=== PATIENT | female | born 1950 | race Caucasian/White ===

== ENCOUNTER 2017-02-08 05:45 | Inpatient (IN) ==
--- NOTE | 2017-02-08 06:08 | Emergency Department Note ---
START Narrative - START START: This is soley a START note for a 66-year-old female is brought to the emergency department by EMS for evaluation of left knee pain status post fall. The patient's states that the patient has had 2 falls within the last 24 hours. The patient now complaining of pain in her left knee. Additionally, the patient also complains of urinary symptoms including incontinence. The patient' s daughter states that the patient has been slightly altered along with this complaint. The patient's daughter states that the patient has been "talking to people that have been for quite some time". Further care of this patient will be assumed by FAISAL Oro due to mid-level shift change.
[2017-02-08] MEDS ORDERED: 0.9 % Sodium Chloride 1,000 ML IVC ONE ×3 (06:25→12:32)
[2017-02-08 06:33] LABS: Bilirubin,Urine Negative (Negative); Blood,Urine Large (Negative); Clarity,Urine Cloudy (Clear); Color,Urine Dark Yellow (Yellow); Glucose,Urine (UA) >=1000 mg/dL (Normal); Ketones,Urine Negative (Negative); Leukocyte Esterase,Urine Trace (Negative); Nitrite,Urine Positive (Negative); PH,Urine 5.5 pH Units (5.0-8.0); Protein,Urine 30 mg/dL (Neg-Trace); Specific Gravity,Urine 1.029 (1.010-1.025); Urobilinogen,Urine Normal (Normal)
--- NOTE | 2017-02-08 06:34 | Emergency Department Note ---
Disposition Clinical Impression: Confusion Sepsis Qualifiers: Sepsis type: sepsis due to unspecified organism Qualified Code(s): A41.9 - Sepsis, unspecified organism Diabetes mellitus Qualifiers: Diabetes mellitus type: type 2 Diabetes mellitus complication status: without complication Diabetes mellitus termite helper insulin use: with chcf use Qualified Code(s): E11.9 - Type 2 diabetes mellitus without complications; Z79.4 - terminal operations supervisor (current) use of insulin Diabetes mellitus, insulin dependent (IDDM), uncontrolled Qualifiers: Diabetes mellitus complication status: without complication Qualified Code(s): E10.9 - Type 1 diabetes mellitus without complications Disposition: Admitted As Inpatient Condition: Good Time of Disposition: 13:00 General Adult HPI - General Chief complaint: ED Extremity Injury, Lower Stated complaint: left knee pain Time Seen by Provider: 02/08/17 06:06 Source: patient, EMS Mode of arrival: EMS Limitations: no limitations Nursing Notes Reviewed: Yes Vital Signs Reviewed: Yes - History of Present Illness HPI Narrative: Patient brought to the ED by EMS squad after falling at home, and confusion. Patient lives with her daughter and daughter reports after her fall yesterday she has been, "talking out of her head, picking at objects that weren't there". This apparently a new finding for her. She is a diabetic, and when they checked her blood sugar at 0130 it was found to be 450, and was covered with 15 units of insulin. They have been having difficulty with getting her blood sugars adjusted properly over the last few weeks. She has an appointment with a new Oil Heat Technician but not unitl March. Her primary complaint is pain in her left knee after she fell yesterday. She does have a history of recent back surgery 2 weeks ago, "ablation of nerves in the back " Currently patient is awake, alert to person and place. Her mouth is quite dry. [place] was inserted without difficulty and urine obtained for test. Will start an IV and obtain lab work, chest xray, and left knee xray. Onset (ago): unknown Location: lower extremity (left knee pain) Radiation: extremity Pain Severity: moderate Pain Scale: 7 Quality: aching, dull Consistency: constant, Worsening Improves with: nothing Worsens with: nothing Associated symptoms: Reports: confusion, weakness Treatments Prior to Arrival: none - Related Data Home Medications Medication Instructions Recorded Confirmed Amitriptyline [Elavil] 20 mg PO HS 05/18/15 02/08/17 Aspirin Enteric Coated [Aspirin EC] 81 mg PO DAILY 05/18/15 02/08/17 Clopidogrel [Plavix] 75 mg PO DAILY 05/18/15 02/08/17 Cranberry 500 mg PO DAILY 05/18/15 02/08/17 Gabapentin [Neurontin] 600 mg PO TID 05/18/15 02/08/17 Hydrocodone/Acetaminophen [Delphi 1 tab PO Q6H PRN 05/18/15 02/08/17 10-325 Tablet] Insulin ASPART [NovoLOG] 0 unit SQ TIDWM 05/18/15 02/08/17 Insulin DETEMIR [Levemir] 65 unit SQ HS 05/18/15 02/08/17 Metformin [Glucophage] 1,000 mg PO BIDWM 05/18/15 02/08/17 Multivitamin/Iron/Folic Acid 1 tab PO DAILY 05/18/15 02/08/17 [Centrum Complete Multivit Tab] Potassium Chloride 10 meq PO DAILY 05/18/15 02/08/17 Simvastatin [Zocor] 20 mg PO HS 05/18/15 02/08/17 Bupropion HCl [Wellbutrin Xl] 300 mg PO DAILY 02/08/17 02/08/17 Cyanocobalamin (Vitamin B-12) 100 mcg PO DAILY 02/08/17 02/08/17 [Vitamin B-12] Dicyclomine [Bentyl] 10 mg PO BID 02/08/17 02/08/17 FLUoxetine HCl [Prozac] 40 mg PO DAILY 02/08/17 02/08/17 Meloxicam [Mobic] 15 mg PO DAILY 02/08/17 02/08/17 Oxybutynin [Ditropan] 10 mg PO BID 02/08/17 02/08/17 Ropinirole HCl [Requip] 2 mg PO HS 02/08/17 02/08/17 Allergies Allergy/AdvReac Type Severity Reaction Status Date / Time No Known Allergies Allergy Verified 05/18/15 11:08 All systems ED: reviewed and negative except as stated. Constitutional: Denies: fever, chills, weakness, weight change Eyes: Denies: eye pain, eye discharge, vision change ENT ED: Denies: ear pain, throat pain, dental pain, hearing loss, epistaxis, congestion, dysphagia Cardiovascular: Denies: chest pain, palpitations, dyspnea on exertion, edema, syncope Respiratory: Denies: cough, dyspnea, wheezes, hemoptysis, stridor, sputum production Gastrointestinal: Denies: abdominal pain, nausea, vomiting, diarrhea, constipation, hematemesis, melena, hematochezia Genitourinary: Denies: dysuria, frequency, hematuria, discharge Musculoskeletal: Reports: back pain, other (left knee pain) Integumentary: Denies: rash, abrasion, lesions Neurological: Denies: headache, weakness, numbness, paresthesias, confusion, abnormal gait, vertigo Psychiatric: Denies: anxiety, depression, suicidal thoughts, homicidal thoughts , auditory hallucinations, visual hallucinations Endocrine: Reports: polydipsia, polyuria Hematological/Lymphatic: Denies: easy bleeding, easy bruising Allergic/Immunologic: Denies: facial swelling, urticaria Past Medical History - Past Medical History Attestation: Yes The following information was validated with the patient. Source: patient, nursing notes reviewed Medical history: Reports: CVA, diabetes, GERD, hyperlipidemia Surgical history: Reports: appendectomy, cholecystectomy, hysterectomy, knee replacement, other Psychiatric history: Reports: depression CLEANING MATRON history: Reports: no CLEANING MATRON history - Social History Smoking Status: Former smoker Smokeless Tobacco Status: No Alcohol use: Reports: none Drug use: Reports: none Physical Exam - General Limitations: no limitations General appearance: alert, in no apparent distress - Head Head exam: atraumatic, normocephalic, normal inspection - Eye Eye exam: Present: normal appearance, PERRL, EOMI - ENT ENT exam: normal exam, normal oropharynx, mucous membranes dry, TM's normal bilaterally, normal external ear exam - Neck Neck exam: Present: normal inspection, full ROM, trachea midline - Chest Chest inspection: Present: normal inspection, symmetric chest wall rise. Absent : tenderness, rash, abscess - Respiratory Respiratory exam: Present: normal lung sounds bilaterally. Absent: respiratory distress, wheezes - Cardiovascular Cardiovascular exam: Present: regular rate, normal rhythm, normal heart sounds. Absent: systolic murmur, diastolic murmur, JVD - Abdominal Exam Abdominal exam: Present: soft, Non-Tender, diminished bowel sounds. Absent: tenderness, distention, guarding, rebound, rigidity - Expanded Upper Extremity Exam Shoulder exam: Present: normal inspection, full ROM Arm exam: Present: normal inspection, full ROM Elbow exam: Present: normal inspection, full ROM Forearm/Wrist exam: Present: normal inspection, full ROM Hand exam: Present: normal inspection, full ROM Neuromotor exam: Normal: wrist extension, thumb opposition, thumb IP flexion, fingers 2-5 abduction Neurosensory exam: Normal: radial nerve, ulnar nerve, 2-point discrimination Hand tendon exam: Normal: flexor digitorum profundus (location), flexor digitorum superficialis (location), extensor tendon (location) Vascular exam: Normal: capillary refill, radial pulse - Expanded Lower Extremity Exam Hip/Pelvis exam: Present: normal inspection, full ROM Upper leg exam: Present: normal inspection, full ROM Knee exam: Present: normal inspection, full ROM Lower leg exam: Present: normal inspection, full ROM Ankle exam: Present: normal inspection, full ROM Foot/toe exam: Present: normal inspection, full ROM Neurovascular/Tendon exam: Absent: motor deficit, sensory deficit, tendon deficit Gait: not tested/not observed - Back Exam Back exam: Present: normal inspection, full ROM, tenderness (lower back ). Absent: muscle spasm, rashes - Neurological Exam Neurological exam: Present: alert, CN II-XII intact. Absent: motor sensory deficit - Psychiatric Psychiatric exam: Present: normal affect, normal mood - Skin Skin exam: Present: warm, dry, intact, normal color Course - Reevaluation(s) Reevaluation #1: Advised patient and family of results to this point. Time: 08:30 - Consultations Consultation #1: Hospitalist advised of patient's admission and diagnosis Urosepsis confusion Diabetes He accepted her for admission. Time: 08:58 Vital Signs Temperature 98 F 02/08/17 05:51 Pulse Rate 106 02/08/17 05:51 Respiratory Rate 18 02/08/17 05:51 Blood Pressure 114/92 02/08/17 05:51 O2 Sat by Pulse Oximetry 95 02/08/17 05:51 Temperature 99.8 F H 02/08/17 10:48 Pulse Rate 100 02/08/17 10:48 Respiratory Rate 18 02/08/17 10:48 Blood Pressure 153/78 02/08/17 10:48 O2 Sat by Pulse Oximetry 94 02/08/17 10:48 Oxygen Delivery Oxygen Delivery Room Air Medical Decision Making - MDM Narrative Medical decision making narrative: Urosepsis? vs dementia for confusion + UTI +leukocytosis no fever no new injury to left knee after fall Plan to admit to the hospital for + sepsis criteria, elevated WBC and elevated tachycardia. - Lab Data Lab results reviewed: Yes I reviewed the patient's lab results. Result diagrams: 02/08/17 06:35 02/08/17 06:35 Lab Results 02/08/17 02/08/17 02/08/17 Range/Units 06:26 06:35 06:35 WBC 18.5 H (4.3-11.1) K/mcL RBC 4.18 (3.82-4.97) M/mcL Hgb 12.6 (11.5-15.4) g/dL Hct 38.5 (35.3-44.9) % MCV 92.1 (83.0-100.0) fL MCH 30.1 (28.0-33.3) pg MCHC 32.7 (31.6-35.5) g/dL RDW 13.7 (11.5-14.5) % Plt Count 313 (140-400) K/mcL MPV 9.4 (9.4-12.4) fL Immature Gran % 0.6 (0-4) % Seg Neutrophils % 81.8 % Lymphocytes % 10.4 % Monocytes % 7.0 % Eosinophils % 0.0 % Basophils % 0.2 % Neutrophils # 15.2 H (1.6-8.9) K/mcL Lymphocytes # 1.9 (0.6-4.6) K/mcL Monocytes # 1.3 (0.0-1.3) K/mcL Eosinophils # 0.0 (0.0-0.6) K/mcL Basophils # 0.0 (0.0-0.2) K/mcL PT (9.4-12.1) Seconds INR APTT (26.0-36.0) Seconds Sodium 135 L (136-145) mEq/L Potassium 4.4 (3.5-4.5) mEq/L Chloride 100 (98-109) mEq/L Carbon Dioxide 25 (19-29) mEq/L BUN 13 (7-20) mg/dL Creatinine 0.95 (0.57-1.11) mg/dL Est GFR ( Amer) > 60 (> 60) Est GFR (Non-Af Amer) 59 L (> 60) BUN/Creatinine Ratio 14 (6-26) Glucose 95 (70-99) mg/dL Calculated Osmolality 280 (280-300) Lactic Acid (0.5-2.2) mmol/L Calcium 9.6 (8.6-10.8) mg/dL Phosphorus (2.3-4.7) mg/dL Magnesium (1.6-2.6) mg/dL Total Bilirubin (0.2-1.2) mg/dL Direct Bilirubin (0.0-0.5) mg/dL Indirect Bilirubin (0.0-1.2) mg/dL AST (5-34) Units/L ALT (0-55) Units/L Alkaline Phosphatase (38-126) Units/L Creatine Kinase (29-168) Units/L Troponin I (0-0.03) ng/mL Serum Total Protein (6.0-8.3) g/dL Albumin (3.5-5.0) g/dL Globulin (2.4-3.5) g/dL Albumin/Globulin Ratio (1.1-2.2) Urine Color Dark Yellow (Yellow) Urine Clarity Cloudy A (Clear) Urine pH 5.5 (5.0-8.0) pH Units Ur Specific [place] 1.029 H (1.010-1.025) Urine Protein 30 H (Neg-Trace) mg/dL Urine Glucose (UA) >=1000 H (Normal) mg/dL Urine Ketones Negative (Negative) mg/dL Urine Blood Large H (Negative) Urine Nitrite Positive A (Negative) Urine Bilirubin Negative (Negative) Urine Urobilinogen Normal (Normal) mg/dL Ur Leukocyte Esterase Trace H (Negative) Urine Microscopic RBC 5-15 H (0-3) per hpf Urine Microscopic WBC 15-30 H (0-3) per hpf Ur Squamous Epith Cells None Seen (None-Few) per lpf Urine Bacteria Many H (None-Few) per hpf Hyaline Casts None Seen (None-Few) per lpf Ur Culture Indicated? YES A (NO) 02/08/17 02/08/17 02/08/17 Range/Units 08:44 08:44 08:44 WBC (4.3-11.1) K/mcL RBC (3.82-4.97) M/mcL Hgb (11.5-15.4) g/dL Hct (35.3-44.9) % MCV (83.0-100.0) fL MCH (28.0-33.3) pg MCHC (31.6-35.5) g/dL RDW (11.5-14.5) % Plt Count (140-400) K/mcL MPV (9.4-12.4) fL Immature Gran % (0-4) % Seg Neutrophils % % Lymphocytes % % Monocytes % % Eosinophils % % Basophils % % Neutrophils # (1.6-8.9) K/mcL Lymphocytes # (0.6-4.6) K/mcL Monocytes # (0.0-1.3) K/mcL Eosinophils # (0.0-0.6) K/mcL Basophils # (0.0-0.2) K/mcL PT 14.5 H (9.4-12.1) Seconds INR 1.3 APTT 31.0 (26.0-36.0) Seconds Sodium (136-145) mEq/L Potassium (3.5-4.5) mEq/L Chloride (98-109) mEq/L Carbon Dioxide (19-29) mEq/L BUN (7-20) mg/dL Creatinine (0.57-1.11) mg/dL Est GFR ( Amer) (> 60) Est GFR (Non-Af Amer) (> 60) BUN/Creatinine Ratio (6-26) Glucose (70-99) mg/dL Calculated Osmolality (280-300) Lactic Acid 1.0 (0.5-2.2) mmol/L Calcium (8.6-10.8) mg/dL Phosphorus 2.9 (2.3-4.7) mg/dL Magnesium 1.0 L (1.6-2.6) mg/dL Total Bilirubin 0.5 (0.2-1.2) mg/dL Direct Bilirubin 0.2 (0.0-0.5) mg/dL Indirect Bilirubin 0.3 (0.0-1.2) mg/dL AST 9 (5-34) Units/L ALT 12 (0-55) Units/L Alkaline Phosphatase 57 (38-126) Units/L Creatine Kinase 61 (29-168) Units/L Troponin I (0-0.03) ng/mL Serum Total Protein 6.2 (6.0-8.3) g/dL Albumin 2.5 L (3.5-5.0) g/dL Globulin 3.7 H (2.4-3.5) g/dL Albumin/Globulin Ratio 0.7 L (1.1-2.2) Urine Color (Yellow) Urine Clarity (Clear) Urine pH (5.0-8.0) pH Units Ur Specific [place] (1.010-1.025) Urine Protein (Neg-Trace) mg/dL Urine Glucose (UA) (Normal) mg/dL Urine Ketones (Negative) mg/dL Urine Blood (Negative) Urine Nitrite (Negative) Urine Bilirubin (Negative) Urine Urobilinogen (Normal) mg/dL Ur Leukocyte Esterase (Negative) Urine Microscopic RBC (0-3) per hpf Urine Microscopic WBC (0-3) per hpf Ur Squamous Epith Cells (None-Few) per lpf Urine Bacteria (None-Few) per hpf Hyaline Casts (None-Few) per lpf Ur Culture Indicated? (NO) 02/08/17 Range/Units 08:44 WBC (4.3-11.1) K/mcL RBC (3.82-4.97) M/mcL Hgb (11.5-15.4) g/dL Hct (35.3-44.9) % MCV (83.0-100.0) fL MCH (28.0-33.3) pg MCHC (31.6-35.5) g/dL RDW (11.5-14.5) % Plt Count (140-400) K/mcL MPV (9.4-12.4) fL Immature Gran % (0-4) % Seg Neutrophils % % Lymphocytes % % Monocytes % % Eosinophils % % Basophils % % Neutrophils # (1.6-8.9) K/mcL Lymphocytes # (0.6-4.6) K/mcL Monocytes # (0.0-1.3) K/mcL Eosinophils # (0.0-0.6) K/mcL Basophils # (0.0-0.2) K/mcL PT (9.4-12.1) Seconds INR APTT (26.0-36.0) Seconds Sodium (136-145) mEq/L Potassium (3.5-4.5) mEq/L Chloride (98-109) mEq/L Carbon Dioxide (19-29) mEq/L BUN (7-20) mg/dL Creatinine (0.57-1.11) mg/dL Est GFR ( Amer) (> 60) Est GFR (Non-Af Amer) (> 60) BUN/Creatinine Ratio (6-26) Glucose (70-99) mg/dL Calculated Osmolality (280-300) Lactic Acid (0.5-2.2) mmol/L Calcium (8.6-10.8) mg/dL Phosphorus (2.3-4.7) mg/dL Magnesium (1.6-2.6) mg/dL Total Bilirubin (0.2-1.2) mg/dL Direct Bilirubin (0.0-0.5) mg/dL Indirect Bilirubin (0.0-1.2) mg/dL AST (5-34) Units/L ALT (0-55) Units/L Alkaline Phosphatase (38-126) Units/L Creatine Kinase (29-168) Units/L Troponin I 0.00 (0-0.03) ng/mL Serum Total Protein (6.0-8.3) g/dL Albumin (3.5-5.0) g/dL Globulin (2.4-3.5) g/dL Albumin/Globulin Ratio (1.1-2.2) Urine Color (Yellow) Urine Clarity (Clear) Urine pH (5.0-8.0) pH Units Ur Specific [place] (1.010-1.025) Urine Protein (Neg-Trace) mg/dL Urine Glucose (UA) (Normal) mg/dL Urine Ketones (Negative) mg/dL Urine Blood (Negative) Urine Nitrite (Negative) Urine Bilirubin (Negative) Urine Urobilinogen (Normal) mg/dL Ur Leukocyte Esterase (Negative) Urine Microscopic RBC (0-3) per hpf Urine Microscopic WBC (0-3) per hpf Ur Squamous Epith Cells (None-Few) per lpf Urine Bacteria (None-Few) per hpf Hyaline Casts (None-Few) per lpf Ur Culture Indicated? (NO) - Radiology Data Radiology results reviewed: Yes I reviewed the patient's radiology results. Attestation Statement - Attestation Attestation: I examined this patient and my medical decision-making was reviewed with the BARIATRIC SURGEON/PA/Advanced Practice Nurse/Resident Physician. I agree with the documented findings, disposition and treatment plan as described except to the extent set forth below. Sent to ED with altered mental status falls. Family states she has been a little more confused than normal. No fevers. No cough congestion. No abdominal pain or vomiting. She fell twice last night. Denies hitting her head. On examination she is awake alert appropriate and oriented. Abdomen soft and lungs clear. Plan. Patient was slightly tachycardic with a white count. She will be sepsis criteria, however the patient is not felt to be septic. She has a urinary tract infection. We will treat this as Rocephin. She has had 2 L of normal saline which are sufficient as she is not hypotensive. The patient is 5 foot 2. Hydration will be sufficient based on her ideal body weight. Patient will be admitted to medicine. 30 minutes of critical care exclusive of separately billable procedures.
[2017-02-08 06:36] LABS: Bacteria,Urine Many per hpf (None-Few); Hyaline Casts,Urine None Seen per lpf (None-Few); Squamous Epithelial Cell,Urine None Seen per lpf (None-Few); WBC,Urine 15-30 per hpf (0-3)
[2017-02-08 06:42] LABS: Basophils % 0.2 %; Hematocrit 38.5 % (35.3-44.9); Hemoglobin 12.6 g/dL (11.5-15.4); Immature Granulocytes % 0.6 % (0-4); Lymphocytes # 1.9 K/mcL (0.6-4.6); Lymphocytes % 10.4 %; Mean Corpuscular HGB Conc 32.7 g/dL (31.6-35.5); Mean Corpuscular Hemoglobin 30.1 pg (28.0-33.3); Mean Corpuscular Volume 92.1 fL (83.0-100.0); Mean Platelet Volume 9.4 fL (9.4-12.4); Monocytes # 1.3 K/mcL (0.0-1.3); Neutrophils # 15.2 K/mcL (1.6-8.9); Platelet Count 313 K/mcL (140-400); Red Blood Count 4.18 M/mcL (3.82-4.97); Red Cell Distribution Width 13.7 % (11.5-14.5); Segmented Neutrophils % 81.8 %
[2017-02-08 06:53] LABS: BUN/Creatinine Ratio 14 (6-26); Blood Urea Nitrogen 13 mg/dL (7-20); Calcium 9.6 mg/dL (8.6-10.8); Carbon Dioxide 25 mEq/L (19-29); Chloride 100 mEq/L (98-109); Glucose 95 mg/dL (70-99); Osmolality,Calculated 280 (280-300); Potassium 4.4 mEq/L (3.5-4.5); Sodium 135 mEq/L (136-145); eGFR For African Americans > 60 (> 60); eGFR For Non-African Americans 59 (> 60)
[2017-02-08 09:04] LABS: INR 1.3; Prothrombin Time 14.5 Seconds (9.4-12.1)
[2017-02-08 09:06] LABS: Albumin 2.5 g/dL (3.5-5.0); Albumin/Globulin Ratio 0.7 (1.1-2.2); Bilirubin,Direct 0.2 mg/dL (0.0-0.5); Bilirubin,Indirect 0.3 mg/dL (0.0-1.2); Bilirubin,Total 0.5 mg/dL (0.2-1.2); Globulin 3.7 g/dL (2.4-3.5); Phosphorous 2.9 mg/dL (2.3-4.7); Total Protein 6.2 g/dL (6.0-8.3)
[2017-02-08] MEDS ORDERED: Naloxone 0.4 MG/ML INJ IVP PRN (11:10)
[2017-02-08] MEDS ORDERED: Albuterol 2.5 MG/3 ML NEBULIZER IH PRN (11:18)
--- NOTE | 2017-02-08 11:21 | Internal Med History&Physical ---
<Lalita Bernstein - Last Filed: 02/08/17 12:00> Date of Encounter: 02/08/17 Time of Encounter: 11:21 Assessment and Plan (1) Sepsis Current visit: Yes Status: Acute 1 patient has been experiencing increasing confusion experiencing chills presentation she was tachycardic white count was 18 urinalysis revealed UTI. Blood/urine cultures were obtained patient was given IV fluids we will continue with IV fluids 2 continue with Rocephin-adjusted sensitivity 3 monitor intake and output 4 monitor CBC Qualifiers: Sepsis type: sepsis due to unspecified organism Qualified Code(s): A41.9 - Sepsis, unspecified organism (2) Urinary tract infection Current visit: Yes Status: Acute 1 patient's urinalysis revealed large mononitrates blood bacteria. Urine culture was obtained 2 continue IV Rocephin and adjust a sensitivity 3 we will check CPK large amount of RBCs and urinalysis patient did have some falls Qualifiers: Urinary tract infection type: acute cystitis Hematuria presence: with hematuria Qualified Code(s): N30.01 - Acute cystitis with hematuria (3) Diabetes mellitus Current visit: Yes Status: Chronic 1 Accu-Cheks before meals at bedtime with sliding scale insulin as well as basal bolus to maintain postprandial less than 180 2 diabetic diet Qualifiers: Diabetes mellitus type: type 2 Diabetes mellitus complication status: without complication Diabetes mellitus technician terminal and repeater insulin use: with chcf use Qualified Code(s): E11.9 - Type 2 diabetes mellitus without complications ; Z79.4 - [facility] (current) use of insulin (4) COPD (chronic obstructive pulmonary disease) Current visit: Yes Status: Chronic 1 presently stable we will continue with bronchodilators as needed 2 oxygen as needed titrated maintain SPO2 greater 92% Qualifiers: COPD type: unspecified COPD Qualified Code(s): J44.9 - Chronic obstructive pulmonary disease, unspecified (5) Hypertension Current visit: Yes Status: Chronic 1 presently controlled we will continue with home medications 2 low sodium diet Qualifiers: Hypertension type: essential hypertension Qualified Code(s): I10 - Essential (primary) hypertension (6) History of CVA (cerebrovascular accident) Current visit: Yes Status: Chronic 1 history of CVA we will continue with statin aspirin Plavix (7) Hypomagnesemia Current visit: Yes Status: Acute 1 magnesium 1 we will replace and recheck 2 cardiac monitoring (8) DVT prophylaxis Current visit: Yes Status: Acute 1 [facility] Internal Medicine - H&P: HPI Admitted From: Emergency Dept Plans for Post Hospital Care: Home History of present illness: Ms. Hernandez is a 66 year old female past medical history of CVA and diabetes GERD hyperlipidemia which are arthritis hypertension COPD. information obtained from family as well as patient. According to family patient's had been expressing increasing blood sugars since . Thursday she began to have episodes of nausea and vomiting with approximately 11 PM Thursday night patient's bed was not unable to get up. Family had a difficult time assisting patient back to bed, as night progressed the family noticed patient was growing increasingly confused and hallucinating picking at things in the air, experiencing chills and around 3 AM she fell out of bed. She did not strike her head there was no loss of consciousness. She did complain of left knee pain She has been experiencing lower abdominal cramping and some diarrhea which she states is chronic nausea vomiting chills. She denies any urinary symptoms chest pain or shortness of breath. She was brought to the ER for further evaluation. According to records lab work indicated leukocytosis that WBC 18.5 lactic acid was 1 mag was 1 troponin was 0 urinalysis did reveal large amount of blood large nitrates is positive leukoesterase and bacteria. Chest x-ray was clear head CT was negative for any acute intracranial abnormalities knee x- ray revealed some osteoarthritis. Blood cultures were obtained patient was given IV fluids and Rocephin. She was admitted for further workup evaluation. Presently patient does not appear to be in any respiratory distress she denies any shortness of breath or chest pain. She is alert and oriented 3 and follows simple commands however she does make inappropriate statements at times is picking at her clothes as well as blankets. Family states this is not her baseline that she is independent and performs her own ADLs. Lung sounds are clear bilaterally heart sounds S1-S2 with no rubs clicks gallops or murmurs noted abdomen soft and nontender with a catheter in place draining clear yellow urine. She is hemodynamically stable at this time I reviewed this case with who agrees with plan. Past Med Surg Social Fam HX - Past Medical History Medical history: CVA, diabetes, GERD, hyperlipidemia Psychiatric history: depression - Past Surgical History Surgical History: appendectomy, cholecystectomy, hysterectomy, knee replacement , other - Social History Smoking Status: Former smoker Smokeless Tobacco Status: No Alcohol use: none Drug use: none - Family History Mother Living Status: Hx Family Cardiac Disorders: Yes Hx Family Endocrine Disorder: Yes (diabetes) Father Living Status: Hx Family Cardiac Disorders: Yes Hx Family Endocrine Disorder: Yes (diabetes) Internal Medicine - H&P: Meds Amitriptyline [Elavil] 20 mg PO HS 05/18/15 [History] Aspirin Enteric Coated [Aspirin EC] 81 mg PO DAILY 05/18/15 [History] Clopidogrel [Plavix] 75 mg PO DAILY 05/18/15 [History] Cranberry 500 mg PO DAILY 05/18/15 [History] Gabapentin [Neurontin] 600 mg PO TID 05/18/15 [History] Hydrocodone/Acetaminophen [[place] 10-325 Tablet] 1 tab PO Q6H PRN 05/18/15 [ History] Insulin ASPART [NovoLOG] 0 unit SQ TIDWM 05/18/15 [History] Insulin DETEMIR [Levemir] 65 unit SQ HS 05/18/15 [History] Metformin [Glucophage] 1,000 mg PO BIDWM 05/18/15 [History] Multivitamin/Iron/Folic Acid [Centrum Complete Multivit Tab] 1 tab PO DAILY [History] Potassium Chloride 10 meq PO DAILY 05/18/15 [History] Simvastatin [Zocor] 20 mg PO HS 05/18/15 [History] Bupropion HCl [Wellbutrin Xl] 300 mg PO DAILY 02/08/17 [History] Cyanocobalamin (Vitamin B-12) [Vitamin B-12] 100 mcg PO DAILY 02/08/17 [History] Dicyclomine [Bentyl] 10 mg PO BID 02/08/17 [History] FLUoxetine HCl [Prozac] 40 mg PO DAILY 02/08/17 [History] Meloxicam [Mobic] 15 mg PO DAILY 02/08/17 [History] Oxybutynin [Ditropan] 10 mg PO BID 02/08/17 [History] Ropinirole HCl [Requip] 2 mg PO HS 02/08/17 [History] Allergies No Known Allergies Allergy (Verified 05/18/15 11:08) All Systems PM: A 10-system review of systems was performed and is negative for pertinent findings except as documented above in the HPI. - Constitutional Constitutional: chills, weight loss - EENT Eyes: no change in vision, no discharge, no pain, no photophobia - Cardiovascular Cardiovascular ROS IM: no chest pain, no diaphoresis, no dyspnea, no lightheadedness, no palpitations, no syncope - Respiratory Respiratory: no cough, no dyspnea, no wheezing, no excessive phlegm production - Gastrointestinal Gastrointestinal: cramping, diarrhea, nausea, vomiting, no abdominal pain, no hematemesis, no hematochezia, no melena - Genitourinary Genitourinary: no change in urinary stream, no dysuria, no flank pain, no hematuria - Musculoskeletal Musculoskeletal ROS IM: arthralgias, no numbness, no tingling - Integumentary Integumentary IM: no rash, no unusual bruising - Neurological Neurological ROS: behavioral changes, confusion, frequent falls - Psychiatric Psychiatric: hallucinations - Hematologic/Lymphatic Hematologic/Lymphatic: no easy bruising - Constitutional Vitals: Temp Pulse Resp BP Pulse Ox 99.8 F H 100 18 153/78 94 02/08/17 10:48 02/08/17 10:48 02/08/17 10:48 02/08/17 10:48 02/08/17 10:48 General appearance: Present: A&O X 3, answers questions appropriately - Head Head exam: Present: atraumatic, normocephalic - Eye Eye exam: Present: PERRL, conjuntiva pink, sclera anicteric Pupils: Present: PERRL - Neck Neck exam general surgery: Present: supple, trachea midline. Absent: lymphadenopathy - Respiratory Respiratory exam: Present: CTAB. Absent: accessory muscle use, rales, rhonchi, wheezes - Cardiovascular Cardiovascular exam: Present: RRR, +S1, +S2. Absent: diastolic murmur, gallop, rubs, systolic murmur - GI/Abdominal GI/Abdominal exam: Present: normal bowel sounds, soft, no peritoneal signs. Absent: distended, tenderness - Extremities Exam Extremities exam: Present: warm, radial pulses palpable and symetrical. Absent : calf tenderness, cyanotic, pedal edema - Neurological Exam Neurological exam: Present: CN II-XII intact, oriented X3, no focal deficits. Absent: pronater drift, facial droop, speech deficit - Skin Skin exam: Present: dry, intact Internal Med - H&P Results - Labs CBC & Chem 7: 02/08/17 06:35 02/08/17 06:35 - EKG Data EKG shows normal: sinus rhythm - EKG Data Prior EKG available for review: yes When compared to previous EKG: there is no significant change - Diagnostic Studies Other Images Additional comments: Chest X-Ray 02/08/17 06:26 IMPRESSION: No acute cardiopulmonary process. D/ / Matty Vital MD / Matty Vital MD Interpreting Provider: Matty Vital MD Knee X-Ray 02/08/17 06:27 IMPRESSION: No acute osseous abnormality of the left knee. Severe tricompartmental osteoarthritis, most pronounced in the medial compartment. D/ / Matty Vital MD / Matty Vital MD Interpreting Provider: Matty Vital MD Head CT 02/08/17 07:43 IMPRESSION: No acute intracranial abnormality. Mild chronic small vessel ischemic changes. D/ / 02/08/2017 08:18:36 Deloris Burleson MD / olga Interpreting Provider: Deloris Burleson MD <Chuy Diaz - Last Filed: 02/08/17 12:35> Date of Encounter: 02/08/17 Internal Medicine - H&P: HPI History of present illness: Ms. Hernandez is a 66 year old female All Systems PM: A 10-system review of systems was performed and is negative for pertinent findings except as documented above in the HPI. - Constitutional Vitals: Temp Pulse Resp BP Pulse Ox 99.8 F H 100 18 153/78 94 02/08/17 10:48 02/08/17 10:48 02/08/17 10:48 02/08/17 10:48 02/08/17 10:48 Internal Med - H&P Results - Labs CBC & Chem 7: 02/08/17 06:35 02/08/17 06:35 - Attending Attestation I examined this patient and my medical decision-making was reviewed with Ms. Bernsteni. I agree with the documented findings, disposition and treatment plan as described except to the extent set forth below. Briefly, 66-year-old female with a history of diabetes mellitus with uncontrolled blood sugars presented to the emergency department due to confusion , hallucinations and picking up objects associated with nausea and vomiting. In the emergency room, she has been found to have urinary tract infection and sepsis due to the same. She is being admitted for the same. On exam, patient has dry mucous membranes. Tachycardia appreciated. Ellington catheter in place. Laboratory data reviewed. EKG personally reviewed-sinus tach. T-wave inversions in aVL which have not changed from her prior EKG. 1. Sepsis due to urinary tract infection-admit to inpatient status. High risk due to risk of septic shock and the need for intravenous fluids and intravenous antibiotic therapy. Expected length of stay is at least 2 midnights. Expected discharge disposition is to home. Lactic acid level is normal. 2. Diabetes mellitus type 2 on home insulin therapy that is uncontrolled- patient's insulin will be adjusted to achieve adequate glycemic control. Sliding scale insulin. Diabetic diet. 3. COPD 4. History of CVA 5. Essential hypertension 6. Electrolyte abnormalities MARCELLA Branch
[2017-02-08] MEDS ORDERED: D5% in Water 1,000 ML IVC PRN (11:22)
[2017-02-08] MEDS ORDERED: Dextrose Gel 15 GM PO PRN ×2 (11:22)
[2017-02-08] MEDS ORDERED: *HR* Dextrose 50 % in Water (Syg) 50 ML SYRINGE IVP PRN (11:22)
[2017-02-08] MEDS ORDERED: Magnesium Sulfate 2 GM in D5% in Water 100 ML IVPB ONE (11:47)
[2017-02-08] MEDS: 0.9 % Sodium Chloride 1,000 ML IVC SCH (12:24)
[2017-02-08] MEDS: Nicotine 14 MG PATCH.TD24 TD SCH (12:25)
[2017-02-08] MEDS: Insulin LISPRO 300 UNITS/3 ML VIAL SQ SCH ×3 (12:50→21:24)
[2017-02-08] MEDS: Acetaminophen 325 MG TABLET PO PRN ×2 (13:03→18:46)
[2017-02-08] MEDS: Gabapentin 300 MG CAPSULE PO SCH ×2 (15:57→21:04)
[2017-02-08] MEDS ORDERED: INSULIN DETEMIR 65 UNIT SQ SCH (21:00)
[2017-02-08] MEDS: rOPINIRole 1 MG TABLET PO SCH (21:05)
[2017-02-08] MEDS: Insulin DETEMIR 100 UNIT/ML X5UNITS SQ SCH (21:25)
[2017-02-09] MEDS: 0.9 % Sodium Chloride 1,000 ML IVC SCH (02:31)
[2017-02-09 06:06] LABS: Basophils % 0.3 %; Hematocrit 35.2 % (35.3-44.9); Hemoglobin 11.3 g/dL (11.5-15.4); Immature Granulocytes % 0.6 % (0-4); Lymphocytes % 15.5 %; Mean Corpuscular HGB Conc 32.1 g/dL (31.6-35.5); Mean Corpuscular Hemoglobin 29.9 pg (28.0-33.3); Mean Corpuscular Volume 93.1 fL (83.0-100.0); Mean Platelet Volume 9.7 fL (9.4-12.4); Monocytes # 0.8 K/mcL (0.0-1.3); Monocytes % 6.5 %; Platelet Count 310 K/mcL (140-400); Red Blood Count 3.78 M/mcL (3.82-4.97); Red Cell Distribution Width 13.8 % (11.5-14.5); Segmented Neutrophils % 77.1 %
[2017-02-09 06:27] LABS: BUN/Creatinine Ratio 11 (6-26); Blood Urea Nitrogen 8 mg/dL (7-20); Calcium 8.7 mg/dL (8.6-10.8); Carbon Dioxide 23 mEq/L (19-29); Chloride 104 mEq/L (98-109); Glucose 140 mg/dL (70-99); Osmolality,Calculated 279 (280-300); Potassium 4.1 mEq/L (3.5-4.5); Sodium 134 mEq/L (136-145); eGFR For African Americans > 60 (> 60); eGFR For Non-African Americans > 60 (> 60)
[2017-02-09] MEDS: *HR* Enoxaparin 40 MG/0.4 ML SYRINGE SQ SCH (06:39)
[2017-02-09] MEDS: Insulin LISPRO 300 UNITS/3 ML VIAL SQ SCH ×4 (08:35→21:20)
[2017-02-09] MEDS: BuPROPion XL (24 HR) 150 MG TABLET PO SCH (09:56)
[2017-02-09] MEDS: FLUoxetine 20 MG CAPSULE PO SCH (09:56)
[2017-02-09] MEDS: Gabapentin 300 MG CAPSULE PO SCH ×3 (09:56→21:16)
[2017-02-09] MEDS: Aspirin Enteric Coated 81 MG Tablet PO SCH (09:56)
[2017-02-09] MEDS: Nicotine 14 MG PATCH.TD24 TD SCH (09:59)
[2017-02-09] MEDS: *HR* HYDROcodone/Acet 5/325 mg TABLET PO PRN (12:58)
--- NOTE | 2017-02-09 18:31 | Internal Med Progress Note ---
Date of Encounter: 02/09/17 Time of Encounter: 15:00 - Assessment and plan (1) Sepsis Current Visit: Yes Status: Acute Assessment and plan: Likely secondary to gram-negative rods with urinary tract infection as source. Lactic acid is improving. The patient has been afebrile. So far blood culture is negative. Continue with broad-spectrum and IV antibiotics. I will increase ceftriaxone dose to every 12 hours for severe infection. Follow-up culture and sensitivities. Qualifiers: Sepsis type: sepsis due to unspecified organism Qualified Code(s): A41.9 - Sepsis, unspecified organism (2) Urinary tract infection Current Visit: Yes Status: Acute Assessment and plan: Continue with ceftriaxone. Follow-up sensitivities and transitioned to oral antibiotics. Qualifiers: Urinary tract infection type: acute cystitis Hematuria presence: with hematuria Qualified Code(s): N30.01 - Acute cystitis with hematuria (3) Diabetes mellitus Current Visit: Yes Status: Chronic Assessment and plan: Insulin Levemir and sliding scale. Diabetic diet. Qualifiers: Diabetes mellitus type: type 2 Diabetes mellitus complication status: without complication Diabetes mellitus termite exterminator insulin use: with termite exterminator use Qualified Code(s): E11.9 - Type 2 diabetes mellitus without complications ; Z79.4 - intermediate card tender (current) use of insulin (4) COPD (chronic obstructive pulmonary disease) Current Visit: Yes Status: Chronic Assessment and plan: No evidence of exacerbation. We will use inhaled bronchodilators as needed. Qualifiers: COPD type: unspecified COPD Qualified Code(s): J44.9 - Chronic obstructive pulmonary disease, unspecified (5) Hypertension Current Visit: Yes Status: Chronic Assessment and plan: Resume home medications. Qualifiers: Hypertension type: essential hypertension Qualified Code(s): I10 - Essential (primary) hypertension (6) DVT prophylaxis Current Visit: Yes Status: Acute (7) Hypomagnesemia Current Visit: Yes Status: Acute Assessment and plan: We will check an replete magnesium the morning. - Subjective Interval history: 02/09/2017: The patient presented yesterday with generalized weakness and profound confusion described as visual hallucination and disorientation, as per her daughter's reports. She was fnd to have UTI and sepsis. Her mental status has improved significantly currently she is back to baseline which is fully alert and conversant. Denies fevers and chills denies dysuria however the daughter does endorse that the patient has been having more urinary incontinence over the last week. - Constitutional Vitals: Temp Pulse Resp BP Pulse Ox 98 F 81 16 110/61 95 02/09/17 15:55 02/09/17 15:55 02/09/17 15:55 02/09/17 15:55 02/09/17 15:55 General appearance: Present: A&O X 3, answers questions appropriately - Cardiovascular Cardiovascular exam: Present: RRR, +S1, +S2. Absent: diastolic murmur, gallop, rubs, systolic murmur - GI/Abdominal GI/Abdominal exam: Present: normal bowel sounds, soft, no peritoneal signs. Absent: distended, tenderness - Extremities Exam Extremities exam: Present: warm, radial pulses palpable and symetrical. Absent : calf tenderness, cyanotic, pedal edema - Skin Skin exam: Present: dry, intact Internal Medicine: Result - Labs CBC & Chem 7: 02/09/17 05:10 02/09/17 05:10 Labs: Short CBC 02/09/17 Range/Units 05:10 WBC 13.0 H (4.3-11.1) K/mcL Hgb 11.3 L (11.5-15.4) g/dL Hct 35.2 L (35.3-44.9) % Plt Count 310 (140-400) K/mcL Neutrophils # 10.0 H (1.6-8.9) K/mcL BMP 02/09/17 05:10 Sodium 134 L Potassium 4.1 Chloride 104 Carbon Dioxide 23 BUN 8 Creatinine 0.72 Glucose 140 H Calcium 8.7 - ABG Interpretation ABG results: PT/INR, D-dimer PT 14.5 Seconds (9.4-12.1) H 02/08/17 08:44 Consult Discharge Plan - Plan Referrals: Judy Montoya [Primary Care Provider] - (office will call the patient for an appointment...)
[2017-02-09] MEDS: rOPINIRole 1 MG TABLET PO SCH (21:16)
[2017-02-09] MEDS: Insulin DETEMIR 100 UNIT/ML X5UNITS SQ SCH (21:21)
[2017-02-10 00:35] LABS: Acinetobacter baumannii by PCR Not Detected (Not Detect); Candida albicans by PCR Not Detected (Not Detect); Candida glabrata by PCR Not Detected (Not Detect); Candida krusei by PCR Not Detected (Not Detect); Candida parapsilosis by PCR Not Detected (Not Detect); Candida tropicalis by PCR Not Detected (Not Detect); Enterococcus by PCR Not Detected (Not Detect); Escherichia coli by PCR Not Detected (Not Detect); Klebsiella oxytoca by PCR Not Detected (Not Detect); Klebsiella pneumoniae by PCR ***DETECTED*** (Not Detect); Pseudomonas aeruginosa by PCR Not Detected (Not Detect); Serratia marcescens by PCR Not Detected (Not Detect); Staphylococcus aureus by PCR Not Detected (Not Detect); Streptococcus agalactiae(B)PCR Not Detected (Not Detect); Streptococcus by PCR Not Detected (Not Detect); Streptococcus pneumoniae PCR Not Detected (Not Detect); Streptococcus pyogenes (A) PCR Not Detected (Not Detect); blaKPC Carbapenem-Resist Gene Not Detected (Not Detect); mecA Methicillin-Resist Gene Not Detected (Not Detect); vanA/B Vancomycin-Resist Genes Not Detected (Not Detect)
[2017-02-10 04:33] LABS: Basophils % 0.3 %; Eosinophils # 0.1 K/mcL (0.0-0.6); Eosinophils % 0.6 %; Hematocrit 34.7 % (35.3-44.9); Hemoglobin 11.1 g/dL (11.5-15.4); Immature Granulocytes % 0.6 % (0-4); Lymphocytes # 2.3 K/mcL (0.6-4.6); Lymphocytes % 22.8 %; Mean Corpuscular Hemoglobin 29.7 pg (28.0-33.3); Mean Corpuscular Volume 92.8 fL (83.0-100.0); Mean Platelet Volume 9.5 fL (9.4-12.4); Monocytes # 0.9 K/mcL (0.0-1.3); Monocytes % 8.8 %; Neutrophils # 6.9 K/mcL (1.6-8.9); Platelet Count 344 K/mcL (140-400); Red Blood Count 3.74 M/mcL (3.82-4.97); Red Cell Distribution Width 13.7 % (11.5-14.5); Segmented Neutrophils % 66.9 %
[2017-02-10 04:49] LABS: BUN/Creatinine Ratio 11 (6-26); Blood Urea Nitrogen 8 mg/dL (7-20); Calcium 8.8 mg/dL (8.6-10.8); Carbon Dioxide 26 mEq/L (19-29); Chloride 105 mEq/L (98-109); Glucose 61 mg/dL (70-99); Osmolality,Calculated 282 (280-300); Potassium 3.8 mEq/L (3.5-4.5); Sodium 138 mEq/L (136-145); eGFR For African Americans > 60 (> 60); eGFR For Non-African Americans > 60 (> 60)
[2017-02-10] MEDS: *HR* Enoxaparin 40 MG/0.4 ML SYRINGE SQ SCH (06:18)
[2017-02-10] MEDS: Insulin LISPRO 300 UNITS/3 ML VIAL SQ SCH ×4 (08:41→20:19)
[2017-02-10] MEDS: BuPROPion XL (24 HR) 150 MG TABLET PO SCH (08:44)
[2017-02-10] MEDS: Aspirin Enteric Coated 81 MG Tablet PO SCH (08:44)
[2017-02-10] MEDS: FLUoxetine 20 MG CAPSULE PO SCH (08:45)
[2017-02-10] MEDS: Gabapentin 300 MG CAPSULE PO SCH ×3 (08:45→20:22)
[2017-02-10] MEDS: Nicotine 14 MG PATCH.TD24 TD SCH (08:45)
--- NOTE | 2017-02-10 10:39 | Internal Med Progress Note ---
Date of Encounter: 02/10/17 Time of Encounter: 10:38 - Assessment and plan (1) Sepsis Current Visit: Yes Status: Acute Assessment and plan: 02/10/2017: 1 out of 2 blood cultures from 2 days ago came back positive with gram-negative rods. Urine culture positive for Klebsiella and Escherichia coli both sensitive with to ceftriaxone. We will continue with ceftriaxone twice daily. Redraw blood cultures today. The patient has been afebrile. Clinically responding to antibiotic treatment. 02/09/2017: Likely secondary to gram-negative rods with urinary tract infection as source. Lactic acid is improving. The patient has been afebrile. So far blood culture is negative. Continue with broad-spectrum and IV antibiotics. I will increase ceftriaxone dose to every 12 hours for severe infection. Follow- up culture and sensitivities. Qualifiers: Sepsis type: sepsis due to unspecified organism Qualified Code(s): A41.9 - Sepsis, unspecified organism (2) Urinary tract infection Current Visit: Yes Status: Acute Assessment and plan: IV ceftriaxone. Qualifiers: Urinary tract infection type: acute cystitis Hematuria presence: with hematuria Qualified Code(s): N30.01 - Acute cystitis with hematuria (3) Diabetes mellitus Current Visit: Yes Status: Chronic Assessment and plan: Insulin Levemir and sliding scale. Diabetic diet. Her glucose and lipid BMP was 61 this morning. I will reduce the Levemir to 55 units daily at bedtime from 65 her home dose. Qualifiers: Diabetes mellitus type: type 2 Diabetes mellitus complication status: without complication Diabetes mellitus pbx supervisor insulin use: with pbx supervisor use Qualified Code(s): E11.9 - Type 2 diabetes mellitus without complications ; Z79.4 - visual education teacher (current) use of insulin (4) COPD (chronic obstructive pulmonary disease) Current Visit: Yes Status: Chronic Assessment and plan: No evidence of exacerbation. We will use inhaled bronchodilators as needed. Qualifiers: COPD type: unspecified COPD Qualified Code(s): J44.9 - Chronic obstructive pulmonary disease, unspecified (5) Hypertension Current Visit: Yes Status: Chronic Assessment and plan: Resume home medications. Qualifiers: Hypertension type: essential hypertension Qualified Code(s): I10 - Essential (primary) hypertension (6) DVT prophylaxis Current Visit: Yes Status: Acute Assessment and plan: I will continue with Lovenox. (7) Hypomagnesemia Current Visit: Yes Status: Acute - Subjective Interval history: 02/10/2017: The patient reports diffuse generalized headache with no vision changes. No cough or shortness of breath. Denies fevers chills nausea and vomiting. Denies dysuria. 02/09/2017: The patient presented yesterday with generalized weakness and profound confusion described as visual hallucination and disorientation, as per her daughter's reports. She was fnd to have UTI and sepsis. Her mental status has improved significantly currently she is back to baseline which is fully alert and conversant. Denies fevers and chills denies dysuria however the daughter does endorse that the patient has been having more urinary incontinence over the last week. - Constitutional Vitals: Temp Pulse Resp BP Pulse Ox 98.2 F 84 18 159/78 95 02/10/17 07:22 02/10/17 07:22 02/10/17 07:22 02/10/17 07:22 02/10/17 08:49 General appearance: Present: A&O X 3, answers questions appropriately - Eye Eye exam: Present: PERRL, conjuntiva pink, sclera anicteric Pupils: Present: PERRL - Respiratory Respiratory exam: Present: CTAB. Absent: accessory muscle use, rales, rhonchi, wheezes - Cardiovascular Cardiovascular exam: Present: RRR, +S1, +S2. Absent: diastolic murmur, gallop, rubs, systolic murmur - GI/Abdominal GI/Abdominal exam: Present: normal bowel sounds, soft, no peritoneal signs. Absent: distended, tenderness - Extremities Exam Extremities exam: Present: warm, radial pulses palpable and symetrical. Absent : calf tenderness, cyanotic, pedal edema Internal Medicine: Result - Labs CBC & Chem 7: 02/10/17 03:48 02/10/17 03:48 Labs: Short CBC 02/10/17 Range/Units 03:48 WBC 10.3 (4.3-11.1) K/mcL Hgb 11.1 L (11.5-15.4) g/dL Hct 34.7 L (35.3-44.9) % Plt Count 344 (140-400) K/mcL Neutrophils # 6.9 (1.6-8.9) K/mcL BMP 02/10/17 03:48 Sodium 138 Potassium 3.8 Chloride 105 Carbon Dioxide 26 BUN 8 Creatinine 0.75 Glucose 61 L Calcium 8.8 - ABG Interpretation ABG results: PT/INR, D-dimer PT 14.5 Seconds (9.4-12.1) H 02/08/17 08:44 Consult Discharge Plan - Plan Referrals: Judy Montoya [Primary Care Provider] - (office will call the patient for an appointment...)
[2017-02-10] MEDS ORDERED: Patient Taking Own Medication 1 EACH PO PRN (15:24)
--- NOTE | 2017-02-10 16:40 | Electrocardiograph Report ---
[address] [address] Test Date: 2017-02-08 Pat Name: Danii Hernandez Department: 105 Room: 2A Gender: F Extract Mixer: MSC : [id number] Requested By: Parris See Order Number: [id number] Reading MD: Keke Shah Measurements Intervals [place] Rate: 91 P: 49 AL: 167 QRS: -21 QRSD: 96 T: 96 QT: 360 QTc: 408 Interpretive Statements SINUS RHYTHM BORDERLINE LEFT AXIS DEVIATION [QRS AXIS < -20] NONSPECIFIC T-WAVE ABNORMALITY Electronically Signed On 02-10-2017 16:38:24 EDT by Keke Shah
[2017-02-10] MEDS: Insulin DETEMIR 100 UNIT/ML X5UNITS SQ SCH (20:21)
[2017-02-10] MEDS: rOPINIRole 1 MG TABLET PO SCH (20:21)
[2017-02-11] MEDS: *HR* HYDROcodone/Acet 5/325 mg TABLET PO PRN ×2 (01:23→11:08)
[2017-02-11] MEDS: *HR* Enoxaparin 40 MG/0.4 ML SYRINGE SQ SCH (05:53)
[2017-02-11 06:52] LABS: Basophils % 0.5 %; Eosinophils % 0.5 %; Hematocrit 36.8 % (35.3-44.9); Hemoglobin 11.7 g/dL (11.5-15.4); Immature Granulocytes % 0.5 % (0-4); Lymphocytes # 2.4 K/mcL (0.6-4.6); Lymphocytes % 30.9 %; Mean Corpuscular HGB Conc 31.8 g/dL (31.6-35.5); Mean Corpuscular Hemoglobin 29.8 pg (28.0-33.3); Mean Corpuscular Volume 93.6 fL (83.0-100.0); Mean Platelet Volume 9.6 fL (9.4-12.4); Monocytes # 0.7 K/mcL (0.0-1.3); Monocytes % 8.2 %; Neutrophils # 4.7 K/mcL (1.6-8.9); Platelet Count 394 K/mcL (140-400); Red Blood Count 3.93 M/mcL (3.82-4.97); Red Cell Distribution Width 13.7 % (11.5-14.5); Segmented Neutrophils % 59.4 %
[2017-02-11 07:06] LABS: BUN/Creatinine Ratio 15 (6-26); Blood Urea Nitrogen 11 mg/dL (7-20); Calcium 9.5 mg/dL (8.6-10.8); Carbon Dioxide 29 mEq/L (19-29); Chloride 104 mEq/L (98-109); Glucose 130 mg/dL (70-99); Osmolality,Calculated 293 (280-300); eGFR For African Americans > 60 (> 60); eGFR For Non-African Americans > 60 (> 60)
[2017-02-11 07:17] LABS: Potassium 4.3 mEq/L (3.5-4.5); Sodium 141 mEq/L (136-145)
[2017-02-11] MEDS: Aspirin Enteric Coated 81 MG Tablet PO SCH (10:13)
[2017-02-11] MEDS: BuPROPion XL (24 HR) 150 MG TABLET PO SCH (10:14)
[2017-02-11] MEDS: Gabapentin 300 MG CAPSULE PO SCH ×3 (10:14→21:01)
[2017-02-11] MEDS: Nicotine 14 MG PATCH.TD24 TD SCH (10:15)
[2017-02-11] MEDS: FLUoxetine 20 MG CAPSULE PO SCH (10:15)
[2017-02-11] MEDS: Insulin LISPRO 300 UNITS/3 ML VIAL SQ SCH ×4 (10:16→21:01)
--- NOTE | 2017-02-11 18:42 | Internal Med Progress Note ---
Date of Encounter: 02/11/17 Time of Encounter: 16:00 - Assessment and plan (1) Sepsis Current Visit: Yes Status: Acute Assessment and plan: 02/11/2017: Blood cultures still show gram-negative rods. Urine culture with Escherichia coli and Klebsiella. Continue with ceftriaxone every 12 hours. Monitor clinically. White blood cell count is normal today. The patient has been afebrile. I expect if blood culture gram-negative rods sensitive to ceftriaxone and repeat cultures negative to switch to oral antibiotics in 24-48 hours. 02/10/2017: 1 out of 2 blood cultures from 2 days ago came back positive with gram-negative rods. Urine culture positive for Klebsiella and Escherichia coli both sensitive with to ceftriaxone. We will continue with ceftriaxone twice daily. Redraw blood cultures today. The patient has been afebrile. Clinically responding to antibiotic treatment. 02/09/2017: Likely secondary to gram-negative rods with urinary tract infection as source. Lactic acid is improving. The patient has been afebrile. So far blood culture is negative. Continue with broad-spectrum and IV antibiotics. I will increase ceftriaxone dose to every 12 hours for severe infection. Follow- up culture and sensitivities. Qualifiers: Sepsis type: sepsis due to unspecified organism Qualified Code(s): A41.9 - Sepsis, unspecified organism (2) Urinary tract infection Current Visit: Yes Status: Acute Assessment and plan: IV ceftriaxone. Qualifiers: Urinary tract infection type: acute cystitis Hematuria presence: with hematuria Qualified Code(s): N30.01 - Acute cystitis with hematuria (3) Diabetes mellitus Current Visit: Yes Status: Chronic Assessment and plan: Insulin Levemir and sliding scale. Diabetic diet. Her glucose and lipid BMP was 61 this morning. I will reduce the Levemir to 55 units daily at bedtime from 65 her home dose. Qualifiers: Diabetes mellitus type: type 2 Diabetes mellitus complication status: without complication Diabetes mellitus intermediate insulin use: with terminal worker use Qualified Code(s): E11.9 - Type 2 diabetes mellitus without complications ; Z79.4 - retirement (current) use of insulin (4) COPD (chronic obstructive pulmonary disease) Current Visit: Yes Status: Chronic Assessment and plan: No evidence of exacerbation. We will use inhaled bronchodilators as needed. Qualifiers: COPD type: unspecified COPD Qualified Code(s): J44.9 - Chronic obstructive pulmonary disease, unspecified (5) Hypertension Current Visit: Yes Status: Chronic Qualifiers: Hypertension type: essential hypertension Qualified Code(s): I10 - Essential (primary) hypertension (6) DVT prophylaxis Current Visit: Yes Status: Acute (7) Hypomagnesemia Current Visit: Yes Status: Acute - Subjective Interval history: 01/12/2017: The patient denies dysuria and subjective fevers. She reports improved energy level. She was able to ambulate with assistance and with a walker. 02/10/2017: The patient reports diffuse generalized headache with no vision changes. No cough or shortness of breath. Denies fevers chills nausea and vomiting. Denies dysuria. 02/09/2017: The patient presented yesterday with generalized weakness and profound confusion described as visual hallucination and disorientation, as per her daughter's reports. She was fnd to have UTI and sepsis. Her mental status has improved significantly currently she is back to baseline which is fully alert and conversant. Denies fevers and chills denies dysuria however the daughter does endorse that the patient has been having more urinary incontinence over the last week. - Constitutional Vitals: Temp Pulse Resp BP Pulse Ox 97.9 F 77 16 159/76 94 02/11/17 15:12 02/11/17 15:12 02/11/17 15:12 02/11/17 15:12 02/11/17 15:12 General appearance: Present: A&O X 3, answers questions appropriately - Eye Eye exam: Present: PERRL, conjuntiva pink, sclera anicteric Pupils: Present: PERRL - Respiratory Respiratory exam: Present: CTAB. Absent: accessory muscle use, rales, rhonchi, wheezes - Cardiovascular Cardiovascular exam: Present: RRR, +S1, +S2. Absent: diastolic murmur, gallop, rubs, systolic murmur Internal Medicine: Result - Labs CBC & Chem 7: 02/11/17 06:17 02/11/17 06:17 Labs: Short CBC 02/11/17 Range/Units 06:17 WBC 7.9 (4.3-11.1) K/mcL Hgb 11.7 (11.5-15.4) g/dL Hct 36.8 (35.3-44.9) % Plt Count 394 (140-400) K/mcL Neutrophils # 4.7 (1.6-8.9) K/mcL BMP 02/11/17 06:17 Sodium 141 Potassium 4.3 Chloride 104 Carbon Dioxide 29 BUN 11 Creatinine 0.74 Glucose 130 H Calcium 9.5 - ABG Interpretation ABG results: PT/INR, D-dimer PT 14.5 Seconds (9.4-12.1) H 02/08/17 08:44 Consult Discharge Plan - Plan Referrals: Judy Montoya [Primary Care Provider] - (office will call the patient for an appointment...)
[2017-02-11] MEDS: rOPINIRole 1 MG TABLET PO SCH (20:59)
[2017-02-11] MEDS: Insulin DETEMIR 100 UNIT/ML X5UNITS SQ SCH (21:01)
[2017-02-12 05:53] LABS: Basophils % 0.5 %; Eosinophils # 0.1 K/mcL (0.0-0.6); Eosinophils % 0.9 %; Hematocrit 36.6 % (35.3-44.9); Hemoglobin 11.9 g/dL (11.5-15.4); Immature Granulocytes % 0.5 % (0-4); Lymphocytes # 2.7 K/mcL (0.6-4.6); Lymphocytes % 31.6 %; Mean Corpuscular HGB Conc 32.5 g/dL (31.6-35.5); Mean Corpuscular Hemoglobin 30.1 pg (28.0-33.3); Mean Corpuscular Volume 92.4 fL (83.0-100.0); Mean Platelet Volume 9.4 fL (9.4-12.4); Monocytes # 0.6 K/mcL (0.0-1.3); Monocytes % 7.2 %; Platelet Count 415 K/mcL (140-400); Red Blood Count 3.96 M/mcL (3.82-4.97); Red Cell Distribution Width 13.7 % (11.5-14.5); Segmented Neutrophils % 59.3 %
[2017-02-12] MEDS: *HR* Enoxaparin 40 MG/0.4 ML SYRINGE SQ SCH (06:07)
[2017-02-12 06:09] LABS: BUN/Creatinine Ratio 19 (6-26); Blood Urea Nitrogen 14 mg/dL (7-20); Calcium 9.6 mg/dL (8.6-10.8); Carbon Dioxide 28 mEq/L (19-29); Chloride 103 mEq/L (98-109); Glucose 119 mg/dL (70-99); Osmolality,Calculated 290 (280-300); Potassium 4.3 mEq/L (3.5-4.5); Sodium 139 mEq/L (136-145); eGFR For African Americans > 60 (> 60); eGFR For Non-African Americans > 60 (> 60)
[2017-02-12 07:20] VITALS: BP 158/88
[2017-02-12] MEDS: *HR* HYDROcodone/Acet 5/325 mg TABLET PO PRN (07:48)
[2017-02-12] MEDS: Insulin LISPRO 300 UNITS/3 ML VIAL SQ SCH ×2 (07:53→12:08)
[2017-02-12] MEDS: Nicotine 14 MG PATCH.TD24 TD SCH (10:08)
[2017-02-12] MEDS: BuPROPion XL (24 HR) 150 MG TABLET PO SCH (10:08)
[2017-02-12] MEDS: Aspirin Enteric Coated 81 MG Tablet PO SCH (10:08)
[2017-02-12] MEDS: FLUoxetine 20 MG CAPSULE PO SCH (10:09)
[2017-02-12] MEDS: Gabapentin 300 MG CAPSULE PO SCH (10:09)
--- NOTE | 2017-02-12 11:04 | Discharge Summary ---
Date of Encounter: 02/12/17 Time of Encounter: 10:58 - Discharge Diagnosis (1) Urinary tract infection Priority: Secondary Status: Acute Qualifiers: Urinary tract infection type: acute cystitis Hematuria presence: with hematuria Qualified Code(s): N30.01 - Acute cystitis with hematuria (2) Diabetes mellitus Priority: Secondary Status: Chronic Qualifiers: Diabetes mellitus type: type 2 Diabetes mellitus complication status: without complication Diabetes mellitus rn long term care insulin use: with longterm use Qualified Code(s): E11.9 - Type 2 diabetes mellitus without complications ; Z79.4 - halfway (current) use of insulin (3) COPD (chronic obstructive pulmonary disease) Priority: Secondary Status: Chronic Qualifiers: COPD type: unspecified COPD Qualified Code(s): J44.9 - Chronic obstructive pulmonary disease, unspecified (4) Hypertension Priority: Secondary Status: Chronic Qualifiers: Hypertension type: essential hypertension Qualified Code(s): I10 - Essential (primary) hypertension (5) DVT prophylaxis Priority: Secondary Status: Acute (6) Hypomagnesemia Priority: Secondary Status: Acute (7) Sepsis due to Klebsiella Priority: Primary Status: Acute - Discharge Medications Prescriptions: Cefdinir [Omnicef] 300 mg PO BID #14 capsule Home Medications: Amitriptyline [Elavil] 20 mg PO HS 05/18/15 [History] Aspirin Enteric Coated [Aspirin EC] 81 mg PO DAILY 05/18/15 [History] Clopidogrel [Plavix] 75 mg PO DAILY 05/18/15 [History] Cranberry 500 mg PO DAILY 05/18/15 [History] Gabapentin [Neurontin] 600 mg PO TID 05/18/15 [History] Hydrocodone/Acetaminophen [[place] 10-325 Tablet] 1 tab PO Q6H PRN 05/18/15 [ History] Insulin ASPART [NovoLOG] 0 unit SQ TIDWM 05/18/15 [History] Insulin DETEMIR [Levemir] 65 unit SQ HS 05/18/15 [History] Metformin [Glucophage] 1,000 mg PO BIDWM 05/18/15 [History] Multivitamin/Iron/Folic Acid [Centrum Complete Multivit Tab] 1 tab PO DAILY [History] Potassium Chloride 10 meq PO DAILY 05/18/15 [History] Simvastatin [Zocor] 20 mg PO HS 05/18/15 [History] Bupropion HCl [Wellbutrin Xl] 300 mg PO DAILY 02/08/17 [History] Cyanocobalamin (Vitamin B-12) [Vitamin B-12] 100 mcg PO DAILY 02/08/17 [History] Dicyclomine [Bentyl] 10 mg PO BID 02/08/17 [History] FLUoxetine HCl [Prozac] 40 mg PO DAILY 02/08/17 [History] Meloxicam [Mobic] 15 mg PO DAILY 02/08/17 [History] Oxybutynin [Ditropan] 10 mg PO BID 02/08/17 [History] Ropinirole HCl [Requip] 2 mg PO HS 02/08/17 [History] Cefdinir [Omnicef] 300 mg PO BID #14 capsule 02/12/17 [Rx] Dicyclomine [Bentyl] 10 mg PO BID capsule 02/12/17 [Rx] Allergies/Adverse Reactions: Allergies No Known Allergies Allergy (Verified 05/18/15 11:08) Date of admission: 02/08/17 09:56 Primary care physician: Judy Montoya Consults: 02/09/17 13:57 Consult to Physical Therapy [CONS] Routine Comment: Evaluate, develop and implement POC Reason for Consult: falls 02/09/17 13:58 OT [Consult to Occupational Therapy] [CONS] Routine Comment: Evaluate, develop and implement POC Reason for Consult: falls 02/10/17 14:38 Consult to [employer] [CONS] Routine Reason for SW Consult: needs ecf per therapy - Patient Status Disposition: Home, Self-Care Condition: Good Functional capacity at discharge: independent ambulation Overall status at discharge: patient is back to baseline - Discharge Instructions Follow Up With: Judy Montoya [Primary Care Provider] - (office will call patient with follow up appointment ) - Diet and Activity Activity: increase activity as tolerated Diet: diabetic diet, low fat, low cholesterol, low salt diet Hospital course: Please refer to the H&P and progress notes for further details. Briefly, Ms. Hernandez is a 66 year old female with past medical history of CVA and diabetes, GERD, hyperlipidemia , osteoarthritis, hypertension and COPD. she was noted to have increased confusion and hallucinations described as picking at things in the air. She was experiencing chills. She fell out of bed. She did not lose consciousness or strike her head. She was brought to the emergency department for further evaluation. Blood work revealed leukocytosis. Urinalysis was positive for bacteria and leukocyte esterase. She was admitted to the medical service with a presumptive diagnosis of sepsis and urinary tract infection. She received treatment with ceftriaxone. Urine culture grew Escherichia coli and Klebsiella. Blood culture was positive for Klebsiella sensitive to cephalosporins. She remained afebrile. Her mental status has improved and now she is awake alert oriented 3, responds questions appropriate and is back to baseline. She was able to ambulate without assistance and will be discharged home to complete an antibiotic course with Omnicef. She had repeat blood cultures which are currently sterile but the final cultures are pending and should be followed up with a primary care physician. She was given instructions in the presence of her daughter and they both verbalized understanding and agreement with the plan. - Time Spent with Patient Total time spent providing and/or coordinating discharge services: Greater than 30 minutes (I have spent 40 minutes coordinating this discharge.) - Constitutional Vitals: Temp Pulse Resp BP Pulse Ox 98.2 F 77 16 158/88 94 02/12/17 07:14 02/12/17 07:14 02/12/17 07:14 02/12/17 07:14 02/12/17 07:14 General appearance: Present: A&O X 3, answers questions appropriately - Respiratory Respiratory exam: Present: CTAB. Absent: accessory muscle use, rales, rhonchi, wheezes - Cardiovascular Cardiovascular exam: Present: RRR, +S1, +S2. Absent: diastolic murmur, gallop, rubs, systolic murmur
== END 2017-02-12 12:45 | disposition home or self-care (01) | DRG 872 ==
LOC: EMEROO 05:45 → SUATTDRO 09:56 → 2ANU 09:56
PROVIDERS: ADMIT Internal Medicine Sleep Medicine; ATTEND Internal Medicine

== ENCOUNTER 2017-07-24 16:08 | Inpatient (IN) ==
[2017-07-24] MEDS ORDERED: 0.9 % Sodium Chloride 1,000 ML IVC ONE ×2 (18:53→19:54)
[2017-07-24 19:30] LABS: Basophils # 0.1 K/mcL (0.0-0.2); Basophils % 0.4 %; Eosinophils % 0.1 %; Hematocrit 43.8 % (35.3-44.9); Hemoglobin 14.6 g/dL (11.5-15.4); Immature Granulocytes % 0.3 % (0-4); Lymphocytes # 4.7 K/mcL (0.6-4.6); Lymphocytes % 30.1 %; Mean Corpuscular HGB Conc 33.3 g/dL (31.6-35.5); Mean Corpuscular Hemoglobin 30.3 pg (28.0-33.3); Mean Corpuscular Volume 90.9 fL (83.0-100.0); Mean Platelet Volume 9.9 fL (9.4-12.4); Monocytes # 0.9 K/mcL (0.0-1.3); Neutrophils # 9.8 K/mcL (1.6-8.9); Platelet Count 422 K/mcL (140-400); Red Blood Count 4.82 M/mcL (3.82-4.97); Red Cell Distribution Width 13.5 % (11.5-14.5); Segmented Neutrophils % 63.1 %
[2017-07-24 19:44] LABS: Albumin 3.9 g/dL (3.5-5.0); Bilirubin,Direct 0.2 mg/dL (0.0-0.5); Bilirubin,Indirect 0.4 mg/dL (0.0-1.2); Bilirubin,Total 0.6 mg/dL (0.2-1.2); Calcium 11.5 mg/dL (8.6-10.8); Magnesium 0.9 mg/dL (1.6-2.6); Phosphorous 3.4 mg/dL (2.3-4.7); Potassium 3.6 mEq/L (3.5-4.5); Total Protein 7.9 g/dL (6.0-8.3)
[2017-07-24 19:50] LABS: INR 1.2; Prothrombin Time 12.5 Seconds (9.4-12.1)
[2017-07-24 19:52] LABS: Bilirubin,Urine Large (Negative); Blood,Urine Negative (Negative); Clarity,Urine Cloudy (Clear); Color,Urine Dark Yellow (Yellow); Glucose,Urine (UA) Normal (Normal); Ketones,Urine 15 mg/dL (Negative); Leukocyte Esterase,Urine Trace (Negative); Nitrite,Urine Negative (Negative); PH,Urine 5.5 pH Units (5.0-8.0); Protein,Urine 30 mg/dL (Neg-Trace); Urobilinogen,Urine Normal (Normal)
[2017-07-24 19:54] LABS: Bacteria,Urine Few per hpf (None-Few); RBC,Urine 0-3 per hpf (0-3); Squamous Epithelial Cell,Urine Many per lpf (None-Few)
[2017-07-24 20:15] LABS: Hyaline Casts,Urine Many per lpf (None-Few)
[2017-07-24] MEDS ORDERED: cefTRIAXone 1,000 MG in Water for inj. (sterile) 10 ML IVP ONE (20:50)
--- NOTE | 2017-07-24 20:55 | Emergency Department Note ---
Disposition Clinical Impression: UTI (urinary tract infection) Qualifiers: Urinary tract infection type: acute cystitis Hematuria presence: without hematuria Qualified Code(s): N30.00 - Acute cystitis without hematuria Sepsis Qualifiers: Sepsis type: sepsis due to unspecified organism Qualified Code(s): A41.9 - Sepsis, unspecified organism Disposition: Admitted As Inpatient Condition: Good Time of Disposition: 21:58 General Adult HPI - General Chief complaint: ED General Medical Stated complaint: Multiple Complaints Time Seen by Provider: 07/24/17 18:46 Source: patient, family Mode of arrival: ambulatory Limitations: no limitations Nursing Notes Reviewed: Yes Vital Signs Reviewed: Yes - History of Present Illness HPI Narrative: 67-year-old female presenting to the emergency department complaining of altered mental status and urinary incontinence. Patient was brought in by her family members including her daughter who she lives with. According to the daughter for the past 3 days patient has been incontinent and urine and starting last night she started becoming confused. Patient's alert and oriented 3 in the room but does show signs of confusion when talking to her. She denies any complaints at this time. Patient is afebrile at this time. Patient's family member states this has happened one time previously. She became acutely altered was "trying to eat things off the floor". They stated she was treated for urinary tract infection and the confusion was resolved. Patient denies any chest pain, shortness of breath, dizziness. She denies photophobia or headache. Pain Scale: 7 - Related Data Home Medications Medication Instructions Recorded Confirmed Amitriptyline [Elavil] 20 mg PO HS 05/18/15 07/24/17 Aspirin Enteric Coated [Aspirin EC] 81 mg PO DAILY 05/18/15 07/24/17 Clopidogrel [Plavix] 75 mg PO DAILY 05/18/15 07/24/17 Cranberry 500 mg PO DAILY 05/18/15 07/24/17 Gabapentin [Neurontin] 600 mg PO TID 05/18/15 07/24/17 Hydrocodone/Acetaminophen [[place] 2 tab PO TID 05/18/15 07/24/17 10-325 Tablet] Insulin ASPART [NovoLOG] 0 unit SQ TIDWM 05/18/15 07/24/17 Insulin DETEMIR [Levemir] 72 unit SQ HS 05/18/15 07/24/17 Multivitamin/Iron/Folic Acid 1 tab PO DAILY 05/18/15 07/24/17 [Centrum Complete Multivit Tab] Potassium Chloride 10 meq PO DAILY 05/18/15 07/24/17 Simvastatin [Zocor] 20 mg PO HS 05/18/15 07/24/17 Bupropion HCl [Wellbutrin Xl] 300 mg PO DAILY 02/08/17 07/24/17 Cyanocobalamin (Vitamin B-12) 100 mcg PO DAILY 02/08/17 07/24/17 [Vitamin B-12] Dicyclomine [Bentyl] 10 mg PO BID 02/08/17 07/24/17 FLUoxetine HCl [Prozac] 40 mg PO DAILY 02/08/17 07/24/17 Meloxicam [Mobic] 15 mg PO DAILY 02/08/17 07/24/17 Oxybutynin [Ditropan] 10 mg PO BID 02/08/17 07/24/17 Ropinirole HCl [Requip] 2 mg PO HS 02/08/17 07/24/17 Metformin HCl [Glucophage] 1,000 mg PO BID 07/24/17 07/24/17 Allergies Allergy/AdvReac Type Severity Reaction Status Date / Time No Known Allergies Allergy Verified 05/18/15 11:08 All systems ED: reviewed and negative except as stated. Constitutional: Denies: fever, chills, weakness Eyes: Reports: as per HPI ENT ED: Reports: as per HPI Cardiovascular: Denies: chest pain, palpitations Respiratory: Denies: cough, dyspnea, wheezes Gastrointestinal: Denies: abdominal pain, nausea, vomiting Genitourinary: Reports: other (incontinence ) Musculoskeletal: Reports: as per HPI Integumentary: Denies: rash, abrasion Neurological: Reports: confusion. Denies: weakness, numbness, paresthesias Psychiatric: Reports: as per HPI Endocrine: Reports: as per HPI Hematological/Lymphatic: Reports: as per HPI Allergic/Immunologic: Reports: as per HPI Past Medical History - Past Medical History Attestation: Yes The following information was validated with the patient. Medical history: Reports: CVA, diabetes, GERD, hyperlipidemia Surgical history: Reports: appendectomy, cholecystectomy, hysterectomy, knee replacement, other Psychiatric history: Reports: depression CORD MAKER history: Reports: no CORD MAKER history - Social History Smoking Status: Former smoker Smokeless Tobacco Status: No Alcohol use: Reports: none Drug use: Reports: none Physical Exam - General Limitations: no limitations General appearance: alert, in no apparent distress - Head Head exam: atraumatic, normocephalic, normal inspection - Eye Eye exam: Present: normal appearance. Absent: scleral icterus, conjunctival injection - Neck Neck exam: Present: normal inspection, full ROM. Absent: tenderness, meningismus - Chest Chest inspection: Present: normal inspection, symmetric chest wall rise. Absent : tenderness, rash - Respiratory Respiratory exam: Present: normal lung sounds bilaterally. Absent: respiratory distress, wheezes - Cardiovascular Cardiovascular exam: Present: regular rate, normal rhythm, normal heart sounds - Abdominal Exam Abdominal exam: Present: soft, Non-Tender. Absent: distention, guarding, rebound - Extremities Exam Extremities exam: Present: normal inspection, full ROM - Back Exam Back exam: Present: normal inspection. Absent: CVA tenderness (R), CVA tenderness (L) - Neurological Exam Neurological exam: Present: alert, oriented X3 - Psychiatric Psychiatric exam: Present: normal affect, normal mood - Skin Skin exam: Present: warm, intact Course Course Narrative: 67-year-old female presenting to the emergency department and chief complaint of urinary incontinence and confusion. Concern for sepsis with UTI at this point. Patient is afebrile at this time but we will fluid bolus her. We will obtain basic lab work including cultures and a UA. Disposition pending results. Patient is alert and oriented 3 with mild confusion upon questioning. Family is at bedside. Vital signs are stable at this time. Family and patient agree with this plan. - Reevaluation(s) Reevaluation #1: Patient's urine has come back contaminated. We will begin a gram of Rocephin and admit her to the hospitalist on-call Dr. Lee. I spoke at length with the family and the patient who agreed to defer an LP at this time. They feel this is exactly like her previous episode of urinary tract infection with. They do not have any concern for bacterial meningitis. I agree. Patient does not have photophobia, headache or neck pain. Hospital is crm consultant and accepted the patient. Patient is alert and oriented 3 in the room with stable vital signs at time of admission. Time: 21:57 Vital Signs Temperature 97.7 F 07/24/17 17:00 Pulse Rate 92 07/24/17 17:00 Respiratory Rate 18 07/24/17 17:00 Blood Pressure 161/78 07/24/17 17:00 O2 Sat by Pulse Oximetry 94 07/24/17 17:00 Temperature 97.6 F 07/24/17 22:39 Pulse Rate 90 07/24/17 22:39 Respiratory Rate 18 07/24/17 22:39 Blood Pressure 131/79 07/24/17 22:39 O2 Sat by Pulse Oximetry 94 07/24/17 22:39 Oxygen Delivery Oxygen Delivery Room Air Medical Decision Making - Lab Data Result diagrams: 07/24/17 19:15 07/24/17 19:15 Lab Results 07/24/17 07/24/17 07/24/17 Range/Units 19:15 19:15 19:15 WBC 15.6 H (4.3-11.1) K/mcL RBC 4.82 (3.82-4.97) M/mcL Hgb 14.6 (11.5-15.4) g/dL Hct 43.8 (35.3-44.9) % MCV 90.9 (83.0-100.0) fL MCH 30.3 (28.0-33.3) pg MCHC 33.3 (31.6-35.5) g/dL RDW 13.5 (11.5-14.5) % Plt Count 422 H (140-400) K/mcL MPV 9.9 (9.4-12.4) fL Immature Gran % 0.3 (0-4) % Seg Neutrophils % 63.1 % Lymphocytes % 30.1 % Monocytes % 6.0 % Eosinophils % 0.1 % Basophils % 0.4 % Neutrophils # 9.8 H (1.6-8.9) K/mcL Lymphocytes # 4.7 H (0.6-4.6) K/mcL Monocytes # 0.9 (0.0-1.3) K/mcL Eosinophils # 0.0 (0.0-0.6) K/mcL Basophils # 0.1 (0.0-0.2) K/mcL PT 12.5 H (9.4-12.1) Seconds INR 1.2 Sodium 137 (136-145) mEq/L Potassium 3.6 (3.5-4.5) mEq/L Chloride 98 (98-109) mEq/L Carbon Dioxide 26 (19-29) mEq/L BUN 12 (7-20) mg/dL Creatinine 1.17 H (0.57-1.11) mg/dL Est GFR ( Amer) 56 L (> 60) Est GFR (Non-Af Amer) 46 L (> 60) BUN/Creatinine Ratio 10 (6-26) Glucose 283 H (70-99) mg/dL Calculated Osmolality 294 (280-300) Lactic Acid (0.5-2.2) mmol/L Calcium 11.5 H (8.6-10.8) mg/dL Phosphorus 3.4 (2.3-4.7) mg/dL Magnesium 0.9 L (1.6-2.6) mg/dL Total Bilirubin 0.6 (0.2-1.2) mg/dL Direct Bilirubin 0.2 (0.0-0.5) mg/dL Indirect Bilirubin 0.4 (0.0-1.2) mg/dL AST 17 (5-34) Units/L ALT 15 (0-55) Units/L Alkaline Phosphatase 62 (38-126) Units/L Troponin I (0-0.03) ng/mL Serum Total Protein 7.9 (6.0-8.3) g/dL Albumin 3.9 (3.5-5.0) g/dL Globulin 4.0 H (2.4-3.5) g/dL Albumin/Globulin Ratio 1.0 L (1.1-2.2) Urine Color (Yellow) Urine Clarity (Clear) Urine pH (5.0-8.0) pH Units Ur Specific [place] (1.010-1.025) Urine Protein (Neg-Trace) mg/dL Urine Glucose (UA) (Normal) mg/dL Urine Ketones (Negative) mg/dL Urine Blood (Negative) Urine Nitrite (Negative) Urine Bilirubin (Negative) Urine Urobilinogen (Normal) mg/dL Ur Leukocyte Esterase (Negative) Urine Microscopic RBC (0-3) per hpf Urine Microscopic WBC (0-3) per hpf Ur Squamous Epith Cells (None-Few) per lpf Urine Bacteria (None-Few) per hpf Hyaline Casts (None-Few) per lpf Ur Culture Indicated? (NO) 11/03/17 11/03/17 11/03/17 Range/Units 19:15 19:15 19:48 WBC (4.3-11.1) K/mcL RBC (3.82-4.97) M/mcL Hgb (11.5-15.4) g/dL Hct (35.3-44.9) % MCV (83.0-100.0) fL MCH (28.0-33.3) pg MCHC (31.6-35.5) g/dL RDW (11.5-14.5) % Plt Count (140-400) K/mcL MPV (9.4-12.4) fL Immature Gran % (0-4) % Seg Neutrophils % % Lymphocytes % % Monocytes % % Eosinophils % % Basophils % % Neutrophils # (1.6-8.9) K/mcL Lymphocytes # (0.6-4.6) K/mcL Monocytes # (0.0-1.3) K/mcL Eosinophils # (0.0-0.6) K/mcL Basophils # (0.0-0.2) K/mcL PT (9.4-12.1) Seconds INR Sodium (136-145) mEq/L Potassium (3.5-4.5) mEq/L Chloride (98-109) mEq/L Carbon Dioxide (19-29) mEq/L BUN (7-20) mg/dL Creatinine (0.57-1.11) mg/dL Est GFR ( Amer) (> 60) Est GFR (Non-Af Amer) (> 60) BUN/Creatinine Ratio (6-26) Glucose (70-99) mg/dL Calculated Osmolality (280-300) Lactic Acid 3.1 H (0.5-2.2) mmol/L Calcium (8.6-10.8) mg/dL Phosphorus (2.3-4.7) mg/dL Magnesium (1.6-2.6) mg/dL Total Bilirubin (0.2-1.2) mg/dL Direct Bilirubin (0.0-0.5) mg/dL Indirect Bilirubin (0.0-1.2) mg/dL AST (5-34) Units/L ALT (0-55) Units/L Alkaline Phosphatase (38-126) Units/L Troponin I 0.00 (0-0.03) ng/mL Serum Total Protein (6.0-8.3) g/dL Albumin (3.5-5.0) g/dL Globulin (2.4-3.5) g/dL Albumin/Globulin Ratio (1.1-2.2) Urine Color Dark Yellow (Yellow) Urine Clarity Cloudy A (Clear) Urine pH 5.5 (5.0-8.0) pH Units Ur Specific [place] 1.030 H (1.010-1.025) Urine Protein 30 H (Neg-Trace) mg/dL Urine Glucose (UA) Normal (Normal) mg/dL Urine Ketones 15 H (Negative) mg/dL Urine Blood Negative (Negative) Urine Nitrite Negative (Negative) Urine Bilirubin Large H (Negative) Urine Urobilinogen Normal (Normal) mg/dL Ur Leukocyte Esterase Trace H (Negative) Urine Microscopic RBC 0-3 (0-3) per hpf Urine Microscopic WBC 3-5 H (0-3) per hpf Ur Squamous Epith Cells Many H (None-Few) per lpf Urine Bacteria Few (None-Few) per hpf Hyaline Casts Many H (None-Few) per lpf Ur Culture Indicated? YES A (NO) 07/24/17 Range/Units 20:02 WBC (4.3-11.1) K/mcL RBC (3.82-4.97) M/mcL Hgb (11.5-15.4) g/dL Hct (35.3-44.9) % MCV (83.0-100.0) fL MCH (28.0-33.3) pg MCHC (31.6-35.5) g/dL RDW (11.5-14.5) % Plt Count (140-400) K/mcL MPV (9.4-12.4) fL Immature Gran % (0-4) % Seg Neutrophils % % Lymphocytes % % Monocytes % % Eosinophils % % Basophils % % Neutrophils # (1.6-8.9) K/mcL Lymphocytes # (0.6-4.6) K/mcL Monocytes # (0.0-1.3) K/mcL Eosinophils # (0.0-0.6) K/mcL Basophils # (0.0-0.2) K/mcL PT (9.4-12.1) Seconds INR Sodium (136-145) mEq/L Potassium (3.5-4.5) mEq/L Chloride (98-109) mEq/L Carbon Dioxide (19-29) mEq/L BUN (7-20) mg/dL Creatinine (0.57-1.11) mg/dL Est GFR ( Amer) (> 60) Est GFR (Non-Af Amer) (> 60) BUN/Creatinine Ratio (6-26) Glucose (70-99) mg/dL Calculated Osmolality (280-300) Lactic Acid 2.3 H (0.5-2.2) mmol/L Calcium (8.6-10.8) mg/dL Phosphorus (2.3-4.7) mg/dL Magnesium (1.6-2.6) mg/dL Total Bilirubin (0.2-1.2) mg/dL Direct Bilirubin (0.0-0.5) mg/dL Indirect Bilirubin (0.0-1.2) mg/dL AST (5-34) Units/L ALT (0-55) Units/L Alkaline Phosphatase (38-126) Units/L Troponin I (0-0.03) ng/mL Serum Total Protein (6.0-8.3) g/dL Albumin (3.5-5.0) g/dL Globulin (2.4-3.5) g/dL Albumin/Globulin Ratio (1.1-2.2) Urine Color (Yellow) Urine Clarity (Clear) Urine pH (5.0-8.0) pH Units Ur Specific [place] (1.010-1.025) Urine Protein (Neg-Trace) mg/dL Urine Glucose (UA) (Normal) mg/dL Urine Ketones (Negative) mg/dL Urine Blood (Negative) Urine Nitrite (Negative) Urine Bilirubin (Negative) Urine Urobilinogen (Normal) mg/dL Ur Leukocyte Esterase (Negative) Urine Microscopic RBC (0-3) per hpf Urine Microscopic WBC (0-3) per hpf Ur Squamous Epith Cells (None-Few) per lpf Urine Bacteria (None-Few) per hpf Hyaline Casts (None-Few) per lpf Ur Culture Indicated? (NO) Attestation Statement - Attestation Attestation: I, Avery Meyers, examined this patient and my medical decision-making was reviewed with the [employer] INSTALLER HELPER/PA/Advanced Practice Nurse/Resident Physician. I agree with the documented findings, disposition and treatment plan as described except to the extent set forth below. 67-year-old female presents to emergency department with concerns of altered mental status. Family states patient has been increasingly confused over the past 24 hours, they state that she fell forward into the bed landing on her right upper extremity but did not hit her head or have loss of consciousness. Patient denies headache and is afebrile however she has mild posterior neck pain to palpation. She denies pain with range of motion of the neck however. Urinalysis shows a questionable urinary tract infection. Resident and I had a long, in-depth discussion regarding possibility of urinary tract infection versus a need to rule out meningitis secondary to neck pain with altered mental status. After sugar decision making, the family and the patient chose to decline lumbar puncture and wished to have treatment for urinary tract infection as this is happened multiple times in the past her. Patient will be admitted to the hospital for further Evaluation.
[2017-07-25] MEDS: 0.9 % Sodium Chloride 1,000 ML IVC SCH ×5 (00:19→23:32)
[2017-07-25] MEDS ORDERED: Dextrose Gel 15 GM PO PRN ×2 (01:32)
[2017-07-25] MEDS ORDERED: D5% in Water 1,000 ML IVC PRN (01:32)
[2017-07-25] MEDS ORDERED: Acetaminophen 325 MG TABLET PO PRN (01:32)
[2017-07-25] MEDS ORDERED: Ondansetron 4 MG/2 ML VIAL IVP PRN (01:32)
[2017-07-25] MEDS ORDERED: *HR* Dextrose 50 % in Water (Syg) 50 ML SYRINGE IVP PRN (01:32)
[2017-07-25] MEDS ORDERED: Naloxone 0.4 MG/ML INJ IVP PRN (01:32)
[2017-07-25] MEDS ORDERED: *HR* HYDROcodone/Acet 10/325 mg TABLET PO PRN (01:39)
--- NOTE | 2017-07-25 01:52 | Internal Med History&Physical ---
Date of Encounter: 07/25/17 Time of Encounter: 01:05 Assessment and Plan (1) Sepsis Current visit: Yes Status: Acute 1. Likely due to urine source. 2. Blood and urine cultures drawn. 3. Will continue IV Rocephin and follow clinical course and cultures. 4. Lactate trending down; will repeat level and trend results. 5. Continue IVF. Qualifiers: Sepsis type: sepsis due to unspecified organism Qualified Code(s): A41.9 - Sepsis, unspecified organism (2) UTI (urinary tract infection) Current visit: Yes Status: Acute 1. Treat with IVF and antibiotics as above. 2. Likely needs renal imaging (CT or U/S). 3. Patient has outpatient urology consult scheduled. Follow up as scheduled unless inpatient consult is warranted. Qualifiers: Urinary tract infection type: acute cystitis Hematuria presence: without hematuria Qualified Code(s): N30.00 - Acute cystitis without hematuria (3) IDDM (insulin dependent diabetes mellitus) Current visit: Yes Status: Chronic 1. Hold oral meds. 2. Continue Levemir, but lower dose for now. 3. SSI in addition to basal insulin. 4. Monitor glucose and adjust insulin as necessary. (4) Acute encephalopathy Current visit: Yes Status: Acute 1. Likely due to UTI. 2. Hold sedating/mind-altering medications. 3. Monitor clinical course and pursue further work-up if does not improve as UTI is treated. (5) DVT prophylaxis Current visit: Yes Status: Acute 1. Heparin SQ. Internal Medicine - H&P: HPI Chief complaint: altered mental status Admitted From: Emergency Dept Plans for Post Hospital Care: Home History of present illness: Ms. Hernandez is a 67 year old female who presents to the ER [facility] with complaints of altered mental status and urinary incontinence. She was brought in by her family who reported the above history. In the ER, patient was found to have evidence of UTI and sepsis. She received fluid bolus, blood and urine cultures, and IV antibiotics. She was supplemented admitted to the hospitalist service. Upon my assessment of the patient, she is asleep and there are no family members present. She is easily arousable and minimally confused now. She recognizes she is now hospitalized and states she has been having urinary incontinence and dysuria. She admits to being confused and disoriented earlier. She has a history of recurrent UTI with subsequent delirium. I reviewed her old labs and records. Of note, she had UTI earlier this year with positive blood cultures. That organism was Klebsiella pneumoniae and sensitive to her current antibiotics. She has not had imaging of her kidneys that I could find. I recommend she have ultrasound and/or CT of the abdomen and pelvis when she has stabilized. Additionally, she is due to see urology in consultation. However, she has yet to have an urologic assessment. Presently, patient is alert and oriented 2. She appears mildly dehydrated but otherwise hemodynamically stable. She denies any abdominal pain or discomfort. She does admit to having dysuria and urinary incontinence. She denies any chest pain, shortness of breath, nausea, vomiting, or diarrhea. Past Med Surg Social Fam HX - Past Medical History Attestation: Yes The following information was validated with the patient. Source: patient, old records reviewed Medical history: CVA, diabetes, GERD, hyperlipidemia Psychiatric history: depression - Past Surgical History Surgical History: appendectomy, cholecystectomy, hysterectomy, knee replacement , other - Social History Smoking Status: Former smoker Smokeless Tobacco Status: No Alcohol use: none Drug use: none Current living situation: Home, With Family Activity Level: Independent ambulation - Family History Mother History Unknown: Yes Living Status: Hx Family Cardiac Disorders: Yes Hx Family Endocrine Disorder: Yes (diabetes) Father Adopted: No Family Member Ethnicity: Non- Living Status: Hx Family Cardiac Disorders: No Hx Family Respiratory Disorders: No Hx Family Cancer: No Hx Family GI Disorders: No Hx Family Genitourinary Disorders: No Hx Family Endocrine Disorder: No Hx Family Musculoskeletal Disorders: No Hx Family Neuromuscular Disorders: No Hx Family Neurologic Disorders: No Hx Family HEENT Disorders: No Hx Family Autoimmune Disorders: No Hx Family Reproductive Disorders: No Hx Family Psychosocial Disorders: No Hx Family Medical Disorders: No Internal Medicine - H&P: Meds Amitriptyline [Elavil] 20 mg PO HS 05/18/15 [History] Aspirin Enteric Coated [Aspirin EC] 81 mg PO DAILY 05/18/15 [History] Clopidogrel [Plavix] 75 mg PO DAILY 05/18/15 [History] Cranberry 500 mg PO DAILY 05/18/15 [History] Gabapentin [Neurontin] 600 mg PO TID 05/18/15 [History] Hydrocodone/Acetaminophen [[place] 10-325 Tablet] 2 tab PO TID 05/18/15 [History] Insulin ASPART [NovoLOG] 0 unit SQ TIDWM 05/18/15 [History] Insulin DETEMIR [Levemir] 72 unit SQ HS 05/18/15 [History] Multivitamin/Iron/Folic Acid [Centrum Complete Multivit Tab] 1 tab PO DAILY [History] Potassium Chloride 10 meq PO DAILY 05/18/15 [History] Simvastatin [Zocor] 20 mg PO HS 05/18/15 [History] Bupropion HCl [Wellbutrin Xl] 300 mg PO DAILY 02/08/17 [History] Cyanocobalamin (Vitamin B-12) [Vitamin B-12] 100 mcg PO DAILY 02/08/17 [History] Dicyclomine [Bentyl] 10 mg PO BID 02/08/17 [History] FLUoxetine HCl [Prozac] 40 mg PO DAILY 02/08/17 [History] Meloxicam [Mobic] 15 mg PO DAILY 02/08/17 [History] Oxybutynin [Ditropan] 10 mg PO BID 02/08/17 [History] Ropinirole HCl [Requip] 2 mg PO HS 02/08/17 [History] Metformin HCl [Glucophage] 1,000 mg PO BID 07/24/17 [History] 3 Allergy/AdvReac Type Severity Reaction Status Date / Time No Known Allergies Allergy Verified 05/18/15 11:08 - Constitutional Constitutional: chills, fever(s), malaise, no night sweats - EENT Eyes: no blurry vision, no change in vision Ears: no ear pain, no tinnitus Nose, mouth and throat: no nasal congestion, no sinus pressure, no sore throat - Cardiovascular Cardiovascular ROS IM: no chest pain, no dyspnea, no dyspnea on exertion, no edema - Respiratory Respiratory: no cough, no hemoptysis, no chest congestion, no excessive phlegm production - Gastrointestinal Gastrointestinal: no abdominal pain, no diarrhea, no hematemesis, no hematochezia, no nausea, no vomiting - Genitourinary Genitourinary: dysuria, urinary frequency, urinary incontinence, urinary urgency , no flank pain, no hematuria - Musculoskeletal Musculoskeletal ROS IM: no arthralgias, no back pain - Integumentary Integumentary IM: no rash, no jaundice - Neurological Neurological ROS: confusion, weakness, no dizziness, no focal weakness, no frequent falls - Psychiatric Psychiatric: behavioral changes, confusion, no anxiety - Endocrine Endocrine IM: no polydipsia, no polyuria - Hematologic/Lymphatic Hematologic/Lymphatic: no easy bruising - Allergic/Immunologic Allergic/Immunologic: no GI upset with certain foods - Constitutional Vitals: Temp Pulse Resp BP Pulse Ox 97.6 F 90 18 131/79 94 07/24/17 22:39 07/24/17 22:39 07/24/17 22:39 07/24/17 22:39 07/24/17 22:39 General appearance: Present: cooperative, A&O X 2, pleasant, no acute distress, answers questions appropriately Exam: looks a little dry - Head Head exam: Present: atraumatic, normal inspection - Expanded Head Exam Head exam expanded: Absent: abrasion, contusion, general tenderness - Eye Eye exam: Present: EOMI, normal appearance, PERRL. Absent: scleral icterus Pupils: Present: normal accommodation - ENT ENT exam: Present: mucous membranes dry, normal exam - Neck Neck exam general surgery: Present: full ROM, supple. Absent: tenderness, nuchal rigidity - Respiratory Respiratory exam: Present: CTAB. Absent: chest wall tenderness, rales, wheezes - Cardiovascular Cardiovascular exam: Present: RRR, +S1, +S2. Absent: diastolic murmur, systolic murmur - GI/Abdominal GI/Abdominal exam: Present: normal bowel sounds, soft. Absent: hepatomegaly, mass, rebound, splenomegaly, tenderness - Extremities Exam Extremities exam: Present: full ROM, normal capillary refill (2 seconds), warm, radial pulses palpable and symmetrical. Absent: calf tenderness, joint swelling , pedal edema - Back Exam Back exam: Absent: CVA tenderness (L), CVA tenderness (R) - Neurological Exam Neurological exam: Present: alert, CN II-XII intact, no focal deficits, strengths equal and symetr throughout - Psychiatric Psychiatric exam: Present: normal affect, normal mood - Skin Skin exam: Present: dry, warm. Absent: rash Internal Med - H&P Results - Labs CBC & Chem 7: 07/24/17 19:15 07/24/17 19:15 - Diagnostic Studies Chest x-ray Status: image reviewed by me (negative)
[2017-07-25 04:38] LABS: Basophils % 0.3 %; Eosinophils # 0.2 K/mcL (0.0-0.6); Eosinophils % 1.3 %; Hematocrit 37.2 % (35.3-44.9); Immature Granulocytes % 0.2 % (0-4); Lymphocytes # 4.3 K/mcL (0.6-4.6); Mean Corpuscular HGB Conc 33.1 g/dL (31.6-35.5); Mean Corpuscular Hemoglobin 30.3 pg (28.0-33.3); Mean Corpuscular Volume 91.6 fL (83.0-100.0); Mean Platelet Volume 9.8 fL (9.4-12.4); Monocytes # 0.9 K/mcL (0.0-1.3); Monocytes % 7.1 %; Neutrophils # 6.6 K/mcL (1.6-8.9); Platelet Count 304 K/mcL (140-400); Red Blood Count 4.06 M/mcL (3.82-4.97); Red Cell Distribution Width 13.6 % (11.5-14.5); Segmented Neutrophils % 55.1 %
[2017-07-25 04:45] LABS: Hemoglobin 12.3 g/dL (11.5-15.4)
[2017-07-25 04:56] LABS: Alanine Aminotransferase 11 Units/L (0-55); Alkaline Phosphatase 49 Units/L (38-126); Aspartate Amino Transferase 13 Units/L (5-34); BUN/Creatinine Ratio 14 (6-26); Bilirubin,Total 0.4 mg/dL (0.2-1.2); Blood Urea Nitrogen 12 mg/dL (7-20); Carbon Dioxide 25 mEq/L (19-29); Chloride 105 mEq/L (98-109); Globulin 3.1 g/dL (2.4-3.5); Glucose 172 mg/dL (70-99); Osmolality,Calculated 292 (280-300); Potassium 3.5 mEq/L (3.5-4.5); Sodium 139 mEq/L (136-145); eGFR For African Americans > 60 (> 60); eGFR For Non-African Americans > 60 (> 60)
[2017-07-25 04:59] LABS: Albumin 3.1 g/dL (3.5-5.0); Calcium 9.7 mg/dL (8.6-10.8); Magnesium 0.7 mg/dL (1.6-2.6); Total Protein 6.2 g/dL (6.0-8.3)
[2017-07-25] MEDS ORDERED: Water for inj. (sterile) 10 ML IV ONE (05:58)
[2017-07-25] MEDS: *HR* Heparin 5,000 UNIT/ML VIAL SQ SCH ×3 (06:05→21:26)
[2017-07-25] MEDS ORDERED: cefTRIAXone 2,000 MG in Water for inj. (sterile) 20 ML IVP SCH (07:00)
[2017-07-25] MEDS: Insulin LISPRO 300 UNITS/3 ML VIAL SQ SCH ×3 (09:13→18:37)
[2017-07-25] MEDS: Multivit/Ca/Min/Fe/FA 1 TAB TABLET PO SCH (09:13)
[2017-07-25] MEDS: Aspirin Enteric Coated 81 MG Tablet PO SCH (09:13)
[2017-07-25] MEDS: Gabapentin 300 MG CAPSULE PO SCH ×3 (09:13→21:26)
--- NOTE | 2017-07-25 12:28 | Internal Med Progress Note ---
Date of Encounter: 07/25/17 Time of Encounter: 12:26 - Constitutional Vitals: Temp Pulse Resp BP Pulse Ox 98.1 F 80 15 157/69 92 07/25/17 11:40 07/25/17 11:40 07/25/17 11:40 07/25/17 11:40 07/25/17 11:40 General appearance: Present: cooperative, A&O X 2, pleasant, no acute distress, answers questions appropriately - Head Head exam: Present: atraumatic, normocephalic - Neck Neck exam general surgery: Present: supple, trachea midline. Absent: lymphadenopathy - Respiratory Respiratory exam: Absent: accessory muscle use, rales, rhonchi, wheezes - Cardiovascular Cardiovascular exam: Present: RRR, +S1, +S2. Absent: diastolic murmur, gallop, rubs, systolic murmur - GI/Abdominal GI/Abdominal exam: Present: normal bowel sounds, soft, tenderness (Right upper quadrant and epigastric tenderness), no peritoneal signs. Absent: distended - Extremities Exam Extremities exam: Present: warm. Absent: calf tenderness, cyanotic - Neurological Exam Neurological exam: Present: CN II-XII intact, oriented X3, no focal deficits. Absent: pronater drift, facial droop, speech deficit - Skin Skin exam: Present: dry, intact Internal Medicine: Result - Labs CBC & Chem 7: 07/25/17 04:24 07/25/17 04:24 Labs: Short CBC 07/25/17 Range/Units 04:24 WBC 12.1 H (4.3-11.1) K/mcL Hgb 12.3 D (11.5-15.4) g/dL Hct 37.2 (35.3-44.9) % Plt Count 304 (140-400) K/mcL Neutrophils # 6.6 (1.6-8.9) K/mcL BMP 07/25/17 04:24 Sodium 139 Potassium 3.5 Chloride 105 Carbon Dioxide 25 BUN 12 Creatinine 0.85 Glucose 172 H Calcium 9.7 D Liver Function 07/25/17 Range/Units 04:24 Total Bilirubin 0.4 (0.2-1.2) mg/dL AST 13 (5-34) Units/L ALT 11 (0-55) Units/L Alkaline Phosphatase 49 (38-126) Units/L Albumin 3.1 L D (3.5-5.0) g/dL - ABG Interpretation ABG results: PT/INR, D-dimer PT 12.5 Seconds (9.4-12.1) H 07/24/17 19:15 Consult Discharge Plan - Plan Referrals: Judy Montoya [Primary Care Provider] -
[2017-07-25] MEDS: Levofloxacin 750 MG/150 ML 750 MG/150 ML BAG IVPB SCH (15:55)
[2017-07-25] MEDS ORDERED: NON-FORMULARY MEDICATION 1 EACH EACH (Insulin Detemir 50 UNIT) SQ SCH (21:00)
[2017-07-26] MEDS: 0.9 % Sodium Chloride 1,000 ML IVC SCH ×2 (05:57→06:07)
[2017-07-26] MEDS: *HR* Heparin 5,000 UNIT/ML VIAL SQ SCH ×3 (05:57→21:17)
[2017-07-26] MEDS: Insulin DETEMIR 100 UNIT/ML X5UNITS SQ SCH ×2 (06:06→21:28)
[2017-07-26] MEDS: Insulin LISPRO 300 UNITS/3 ML VIAL SQ SCH ×3 (08:09→18:11)
[2017-07-26] MEDS: Levofloxacin 750 MG/150 ML 750 MG/150 ML BAG IVPB SCH (08:09)
[2017-07-26] MEDS: Aspirin Enteric Coated 81 MG Tablet PO SCH (08:12)
[2017-07-26] MEDS: Gabapentin 300 MG CAPSULE PO SCH ×3 (08:12→21:16)
[2017-07-26] MEDS: Multivit/Ca/Min/Fe/FA 1 TAB TABLET PO SCH (08:12)
[2017-07-26 13:02] LABS: Adenovirus F 40/41 PCR Not detected (Not detect); Astrovirus PCR Not detected (Not detect); C.difficile Toxin A/B by PCR See reflex test (Not detect); Campylobacter by PCR Not detected (Not detect); Cryptosporidium by PCR Not detected (Not detect); Cyclospora cayetanensis PCR Not detected (Not detect); E. coli O157 by PCR Not detected (Not detect); Entamoeba histolytica PCR Not detected (Not detect); Enteroaggregative E.coli(EAEC) Not detected (Not detect); Enteropathogenic E.coli(EPEC) Not detected (Not detect); Enterotoxigenic E.coli (ETEC) Not detected (Not detect); Giardia lamblia PCR Not detected (Not detect); Norovirus GI/GII PCR Not detected (Not detect); Plesiomonas shigelloides PCR Not detected (Not detect); Rotavirus A PCR Not detected (Not detect); Salmonella PCR Not detected (Not detect); Sapovirus PCR Not detected (Not detect); Shig/EnteroinvasiveE coli EIEC Not detected (Not detect); Shigalike tox-prod E coli STEC Not detected (Not detect); Vibrio PCR Not detected (Not detect); Vibrio cholerae PCR Not detected (Not detect); Yersinia enterocolitica PCR Not detected (Not detect)
--- NOTE | 2017-07-26 17:03 | Internal Med Progress Note ---
Date of Encounter: 07/26/17 Time of Encounter: 17:01 - Assessment and plan (1) Clostridium difficile diarrhea Current Visit: Yes Status: Acute (2) Diabetes mellitus, insulin dependent (IDDM), uncontrolled Current Visit: No Status: Chronic Qualifiers: Diabetes mellitus complication status: without complication Qualified Code( s): E10.65 - Type 1 diabetes mellitus with hyperglycemia (3) Hypertension Current Visit: No Status: Chronic Qualifiers: Hypertension type: essential hypertension Qualified Code(s): I10 - Essential (primary) hypertension (4) Hypomagnesemia Current Visit: No Status: Acute - Time Spent With Patient With her history of C. difficile and comorbidity will start patient on oral vancomycin and Flagyl. Add lactobacillus 2 tablets twice a day. Counseling about Clostridium difficile treatment and precautions. We will discontinue Levaquin and her urine culture is negative. Replace magnesium and check CBC basic metabolic profile and magnesium and phosphorus. Insulin sliding scale, hydralazine 10 mg 3 times a day as needed for systolic more than 150 25 - 35 minutes - Subjective Interval history: Patient had 3 loose bowel movement today with explosive diarrhea. Stool for C. difficile was positive. Patient has a history of C. difficile in the past. Patient denies any nausea vomiting. Patient denies any fever or chills - Constitutional Vitals: Temp Pulse Resp BP Pulse Ox 98.2 F 81 16 152/72 94 07/26/17 15:52 07/26/17 15:52 07/26/17 15:52 07/26/17 15:52 07/26/17 15:52 General appearance: Present: cooperative, A&O X 2, pleasant, no acute distress, answers questions appropriately - Head Head exam: Present: atraumatic, normocephalic - Neck Neck exam general surgery: Present: supple, trachea midline. Absent: lymphadenopathy - Respiratory Respiratory exam: Present: CTAB. Absent: accessory muscle use, rales, rhonchi, wheezes - Cardiovascular Cardiovascular exam: Present: RRR, +S1, +S2. Absent: diastolic murmur, gallop, rubs, systolic murmur - GI/Abdominal GI/Abdominal exam: Present: normal bowel sounds, soft, tenderness (Mild diffuse abdominal tenderness more left lower quadrant and left upper quadrant), no peritoneal signs. Absent: distended - Extremities Exam Extremities exam: Present: warm, radial pulses palpable and symmetrical. Absent : calf tenderness, cyanotic, pedal edema - Neurological Exam Neurological exam: Present: CN II-XII intact, oriented X3, no focal deficits. Absent: pronater drift, facial droop, speech deficit Internal Medicine: Result - Labs CBC & Chem 7: 07/25/17 04:24 07/25/17 04:24 - ABG Interpretation ABG results: PT/INR, D-dimer PT 12.5 Seconds (9.4-12.1) H 07/24/17 19:15 Consult Discharge Plan - Plan Referrals: Judy Montoya [Primary Care Provider] -
[2017-07-26] MEDS ORDERED: hydrALAZINE 25 MG TABLET PO ONE (17:12)
[2017-07-26] MEDS ORDERED: Cholestyramine 4 GM POWD.PACK PO SCH (17:15)
[2017-07-26 17:28] LABS: Basophils # 0.1 K/mcL (0.0-0.2); Basophils % 0.5 %; Eosinophils % 0.4 %; Hematocrit 36.7 % (35.3-44.9); Immature Granulocytes % 0.3 % (0-4); Lymphocytes # 3.4 K/mcL (0.6-4.6); Lymphocytes % 31.6 %; Mean Corpuscular HGB Conc 32.7 g/dL (31.6-35.5); Mean Corpuscular Hemoglobin 30.5 pg (28.0-33.3); Mean Corpuscular Volume 93.1 fL (83.0-100.0); Mean Platelet Volume 10.2 fL (9.4-12.4); Monocytes # 0.9 K/mcL (0.0-1.3); Neutrophils # 6.3 K/mcL (1.6-8.9); Platelet Count 301 K/mcL (140-400); Red Blood Count 3.94 M/mcL (3.82-4.97); Red Cell Distribution Width 13.6 % (11.5-14.5); Segmented Neutrophils % 59.2 %
[2017-07-26 17:41] LABS: BUN/Creatinine Ratio 13 (6-26); Blood Urea Nitrogen 10 mg/dL (7-20); Calcium 9.3 mg/dL (8.6-10.8); Carbon Dioxide 23 mEq/L (19-29); Chloride 105 mEq/L (98-109); Glucose 234 mg/dL (70-99); Magnesium 1.5 mg/dL (1.6-2.6); Osmolality,Calculated 289 (280-300); Phosphorous 2.5 mg/dL (2.3-4.7); Potassium 3.7 mEq/L (3.5-4.5); Sodium 136 mEq/L (136-145); eGFR For African Americans > 60 (> 60); eGFR For Non-African Americans > 60 (> 60)
[2017-07-26] MEDS: MetroNIDAZOLE 500 MG/100 ML 500 MG/100 ML BAG IVPB SCH (18:01)
[2017-07-26] MEDS: Vancomycin Oral Soln 250 MG/5 ML UDC PO SCH ×2 (18:01→22:27)
[2017-07-26] MEDS: BuPROPion XL (24 HR) 150 MG TABLET PO SCH (18:49)
[2017-07-26] MEDS: FLUoxetine 20 MG CAPSULE PO SCH (18:49)
[2017-07-26] MEDS: Lactobacillus 1 EACH CAP.SPRINK PO SCH (21:15)
[2017-07-26] MEDS: rOPINIRole 1 MG TABLET PO SCH (21:16)
[2017-07-27] MEDS: 0.9 % Sodium Chloride 1,000 ML IVC SCH ×2 (00:13→09:24)
[2017-07-27] MEDS: MetroNIDAZOLE 500 MG/100 ML 500 MG/100 ML BAG IVPB SCH ×2 (00:14→09:24)
[2017-07-27 04:54] LABS: Basophils # 0.1 K/mcL (0.0-0.2); Basophils % 0.6 %; Eosinophils # 0.2 K/mcL (0.0-0.6); Eosinophils % 1.9 %; Hematocrit 35.4 % (35.3-44.9); Hemoglobin 11.5 g/dL (11.5-15.4); Immature Granulocytes % 0.3 % (0-4); Immature Platelets 3.8 % (1.1-6.1); Lymphocytes # 4.4 K/mcL (0.6-4.6); Lymphocytes % 43.1 %; Mean Corpuscular HGB Conc 32.5 g/dL (31.6-35.5); Mean Corpuscular Hemoglobin 30.3 pg (28.0-33.3); Mean Corpuscular Volume 93.2 fL (83.0-100.0); Mean Platelet Volume 9.9 fL (9.4-12.4); Monocytes # 0.8 K/mcL (0.0-1.3); Monocytes % 7.4 %; Neutrophils # 4.8 K/mcL (1.6-8.9); Platelet Count 306 K/mcL (140-400); Red Cell Distribution Width 13.7 % (11.5-14.5); Segmented Neutrophils % 46.7 %
[2017-07-27 05:09] LABS: BUN/Creatinine Ratio 11 (6-26); Blood Urea Nitrogen 9 mg/dL (7-20); Calcium 8.5 mg/dL (8.6-10.8); Carbon Dioxide 22 mEq/L (19-29); Chloride 108 mEq/L (98-109); Glucose 241 mg/dL (70-99); Magnesium 1.4 mg/dL (1.6-2.6); Osmolality,Calculated 295 (280-300); Phosphorous 2.9 mg/dL (2.3-4.7); Potassium 3.5 mEq/L (3.5-4.5); Sodium 139 mEq/L (136-145); eGFR For African Americans > 60 (> 60); eGFR For Non-African Americans > 60 (> 60)
[2017-07-27] MEDS: *HR* Heparin 5,000 UNIT/ML VIAL SQ SCH ×3 (05:38→21:19)
--- NOTE | 2017-07-27 07:04 | Electrocardiograph Report ---
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
[2017-07-27] MEDS: FLUoxetine 20 MG CAPSULE PO SCH (09:24)
[2017-07-27] MEDS: Lactobacillus 1 EACH CAP.SPRINK PO SCH ×2 (09:24→21:12)
[2017-07-27] MEDS: Aspirin Enteric Coated 81 MG Tablet PO SCH (09:25)
[2017-07-27] MEDS: Insulin LISPRO 300 UNITS/3 ML VIAL SQ SCH ×3 (09:25→17:39)
[2017-07-27] MEDS: Gabapentin 300 MG CAPSULE PO SCH ×3 (09:25→21:11)
[2017-07-27] MEDS: Multivit/Ca/Min/Fe/FA 1 TAB TABLET PO SCH (09:25)
[2017-07-27] MEDS: BuPROPion XL (24 HR) 150 MG TABLET PO SCH (09:25)
[2017-07-27] MEDS: Vancomycin Oral Soln 250 MG/5 ML UDC PO SCH ×4 (09:27→21:14)
--- NOTE | 2017-07-27 09:28 | Electrocardiograph Report ---
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
[2017-07-27] MEDS ORDERED: Magnesium Sulfate 2 GM in D5% in Water 100 ML IVPB ONE (15:24)
--- NOTE | 2017-07-27 20:05 | Internal Med Progress Note ---
Date of Encounter: 07/27/17 Time of Encounter: 20:03 - Assessment and plan (1) Clostridium difficile diarrhea Current Visit: Yes Status: Acute (2) Diabetes mellitus, insulin dependent (IDDM), uncontrolled Current Visit: No Status: Chronic Qualifiers: Diabetes mellitus complication status: without complication Qualified Code( s): E10.65 - Type 1 diabetes mellitus with hyperglycemia (3) Hypertension Current Visit: No Status: Chronic Qualifiers: Hypertension type: essential hypertension Qualified Code(s): I10 - Essential (primary) hypertension (4) Hypomagnesemia Current Visit: No Status: Acute - Time Spent With Patient Continue current medication , replace magnesium recheck at AM . Lost IV access , will change to oral med , encourage oral fluids . possible discharge next AM 25 - 35 minutes - Subjective Interval history: Patient had 4 bowel movements today, 1 bowel movement was soft, she denies any abdominal pain or nausea or vomiting, patient denies any fever or chills - Constitutional Vitals: Temp Pulse Resp BP Pulse Ox 98.0 F 83 18 150/83 94 07/27/17 16:12 07/27/17 16:12 07/27/17 16:12 07/27/17 16:12 07/27/17 16:12 General appearance: Present: cooperative, A&O X 2, pleasant, no acute distress, answers questions appropriately - Head Head exam: Present: atraumatic, normocephalic - Eye Eye exam: Present: conjuntiva pink, sclera anicteric - Neck Neck exam general surgery: Present: supple, trachea midline. Absent: lymphadenopathy - Respiratory Respiratory exam: Present: CTAB. Absent: accessory muscle use, rales, rhonchi, wheezes - Cardiovascular Cardiovascular exam: Present: RRR, +S1, +S2. Absent: diastolic murmur, gallop, rubs, systolic murmur - GI/Abdominal GI/Abdominal exam: Present: normal bowel sounds, soft, no peritoneal signs. Absent: distended, tenderness Internal Medicine: Result - Labs CBC & Chem 7: 07/27/17 04:30 07/27/17 04:30 Labs: Short CBC 07/27/17 Range/Units 04:30 WBC 10.2 (4.3-11.1) K/mcL Hgb 11.5 (11.5-15.4) g/dL Hct 35.4 (35.3-44.9) % Plt Count 306 (140-400) K/mcL Neutrophils # 4.8 (1.6-8.9) K/mcL BMP 07/27/17 04:30 Sodium 139 Potassium 3.5 Chloride 108 Carbon Dioxide 22 BUN 9 Creatinine 0.83 Glucose 241 H Calcium 8.5 L - ABG Interpretation ABG results: PT/INR, D-dimer PT 12.5 Seconds (9.4-12.1) H 07/24/17 19:15 Consult Discharge Plan - Plan Referrals: Judy Montoya [Primary Care Provider] -
[2017-07-27] MEDS: metroNIDAZOLE 500 MG TABLET PO SCH (21:11)
[2017-07-27] MEDS: rOPINIRole 1 MG TABLET PO SCH (21:12)
[2017-07-27] MEDS: Insulin DETEMIR 100 UNIT/ML X5UNITS SQ SCH (21:13)
[2017-07-28] MEDS: *HR* Heparin 5,000 UNIT/ML VIAL SQ SCH ×3 (06:08→20:28)
[2017-07-28] MEDS: Cholestyramine 4 GM POWD.PACK PO SCH (06:08)
[2017-07-28] MEDS: metroNIDAZOLE 500 MG TABLET PO SCH ×3 (10:13→20:28)
[2017-07-28] MEDS: Multivit/Ca/Min/Fe/FA 1 TAB TABLET PO SCH (10:13)
[2017-07-28] MEDS: Lactobacillus 1 EACH CAP.SPRINK PO SCH ×2 (10:13→20:27)
[2017-07-28] MEDS: Insulin LISPRO 300 UNITS/3 ML VIAL SQ SCH ×4 (10:13→21:25)
[2017-07-28] MEDS: Gabapentin 300 MG CAPSULE PO SCH ×3 (10:14→20:27)
[2017-07-28] MEDS: FLUoxetine 20 MG CAPSULE PO SCH (10:14)
[2017-07-28] MEDS: BuPROPion XL (24 HR) 150 MG TABLET PO SCH (10:14)
[2017-07-28] MEDS: Aspirin Enteric Coated 81 MG Tablet PO SCH (10:15)
[2017-07-28] MEDS: Vancomycin Oral Soln 250 MG/5 ML UDC PO SCH ×3 (10:15→20:28)
[2017-07-28] MEDS: rOPINIRole 1 MG TABLET PO SCH (20:27)
[2017-07-28] MEDS: Insulin DETEMIR 100 UNIT/ML X5UNITS SQ SCH (20:28)
--- NOTE | 2017-07-28 21:28 | Electrocardiograph Report ---
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
--- NOTE | 2017-07-28 23:22 | Internal Med Progress Note ---
Date of Encounter: 07/28/17 Time of Encounter: 14:12 - Assessment and plan (1) Clostridium difficile diarrhea Current Visit: Yes Status: Acute Assessment and plan: Continue Flagyl. Possible discharge tomorrow. (2) Urinary tract infection Current Visit: Yes Status: Acute Qualifiers: Urinary tract infection type: acute cystitis Hematuria presence: without hematuria Qualified Code(s): N30.00 - Acute cystitis without hematuria (3) Hypomagnesemia Current Visit: No Status: Acute Assessment and plan: Replace as needed (4) UTI (urinary tract infection) Current Visit: Yes Status: Acute Qualifiers: Urinary tract infection type: acute cystitis Hematuria presence: without hematuria Qualified Code(s): N30.00 - Acute cystitis without hematuria - Subjective Interval history: No acute events, one BM somewhat formed. Appetite okay. - Constitutional Vitals: Temp Pulse Resp BP Pulse Ox 97.9 F 78 14 173/75 95 07/28/17 21:09 07/28/17 21:09 07/28/17 21:09 07/28/17 21:09 07/28/17 21:09 General appearance: Present: cooperative, A&O X 2, A&O X 3, pleasant, no acute distress, answers questions appropriately - Eye Eye exam: Present: PERRL, conjuntiva pink, sclera anicteric Pupils: Present: PERRL - Neck Neck exam general surgery: Present: supple, trachea midline. Absent: lymphadenopathy - Respiratory Respiratory exam: Present: CTAB. Absent: accessory muscle use, rales, rhonchi, wheezes - Cardiovascular Cardiovascular exam: Present: RRR, +S1, +S2. Absent: diastolic murmur, gallop, rubs, systolic murmur - GI/Abdominal GI/Abdominal exam: Present: normal bowel sounds, soft, no peritoneal signs. Absent: distended, tenderness Internal Medicine: Result - Labs CBC & Chem 7: 07/27/17 04:30 07/27/17 04:30 - ABG Interpretation ABG results: PT/INR, D-dimer PT 12.5 Seconds (9.4-12.1) H 07/24/17 19:15 Consult Discharge Plan - Plan Referrals: Judy Montoya [Primary Care Provider] -
[2017-07-29 05:01] LABS: BUN/Creatinine Ratio 13 (6-26); Blood Urea Nitrogen 9 mg/dL (7-20); Calcium 9.1 mg/dL (8.6-10.8); Carbon Dioxide 23 mEq/L (19-29); Chloride 108 mEq/L (98-109); Glucose 156 mg/dL (70-99); Osmolality,Calculated 292 (280-300); Potassium 3.8 mEq/L (3.5-4.5); Sodium 140 mEq/L (136-145); eGFR For African Americans > 60 (> 60); eGFR For Non-African Americans > 60 (> 60)
[2017-07-29 05:12] LABS: Basophils # 0.1 K/mcL (0.0-0.2); Basophils % 0.6 %; Eosinophils # 0.1 K/mcL (0.0-0.6); Eosinophils % 0.7 %; Hematocrit 36.5 % (35.3-44.9); Hemoglobin 11.8 g/dL (11.5-15.4); Immature Granulocytes % 0.3 % (0-4); Mean Corpuscular HGB Conc 32.3 g/dL (31.6-35.5); Mean Corpuscular Hemoglobin 30.4 pg (28.0-33.3); Mean Corpuscular Volume 94.1 fL (83.0-100.0); Mean Platelet Volume 10.6 fL (9.4-12.4); Monocytes # 0.8 K/mcL (0.0-1.3); Monocytes % 7.3 %; Neutrophils # 6.2 K/mcL (1.6-8.9); Platelet Count 294 K/mcL (140-400); Red Blood Count 3.88 M/mcL (3.82-4.97); Red Cell Distribution Width 13.9 % (11.5-14.5); Segmented Neutrophils % 55.1 %
[2017-07-29] MEDS: Cholestyramine 4 GM POWD.PACK PO SCH (05:15)
[2017-07-29] MEDS: *HR* Heparin 5,000 UNIT/ML VIAL SQ SCH ×3 (05:15→20:41)
[2017-07-29] MEDS: Lactobacillus 1 EACH CAP.SPRINK PO SCH ×2 (09:04→20:38)
[2017-07-29] MEDS: Insulin LISPRO 300 UNITS/3 ML VIAL SQ SCH ×4 (09:04→20:40)
[2017-07-29] MEDS: FLUoxetine 20 MG CAPSULE PO SCH (09:05)
[2017-07-29] MEDS: Aspirin Enteric Coated 81 MG Tablet PO SCH (09:05)
[2017-07-29] MEDS: BuPROPion XL (24 HR) 150 MG TABLET PO SCH (09:05)
[2017-07-29] MEDS: Multivit/Ca/Min/Fe/FA 1 TAB TABLET PO SCH (09:06)
[2017-07-29] MEDS: Gabapentin 300 MG CAPSULE PO SCH ×3 (09:06→20:39)
[2017-07-29] MEDS: metroNIDAZOLE 500 MG TABLET PO SCH ×3 (09:06→20:39)
[2017-07-29] MEDS: Vancomycin Oral Soln 250 MG/5 ML UDC PO SCH ×4 (09:07→20:40)
[2017-07-29 15:51] VITALS: BP 174/71
--- NOTE | 2017-07-29 19:53 | Discharge Summary ---
Date of Encounter: 07/29/17 Time of Encounter: 19:45 - Discharge Diagnosis (1) Clostridium difficile diarrhea Priority: Primary Status: Acute (2) Urinary tract infection Priority: Secondary Status: Acute Qualifiers: Urinary tract infection type: acute cystitis Hematuria presence: without hematuria Qualified Code(s): N30.00 - Acute cystitis without hematuria (3) Hypomagnesemia Priority: Secondary Status: Acute - Discharge Medications Prescriptions: Lactobacillus [Culturelle] 2 each PO BID #60 cap.sprink Lisinopril [Zestril] 5 mg PO DAILY #30 tablet metroNIDAZOLE [Flagyl] 500 mg PO TID 10 Days #30 tablet metroNIDAZOLE [Flagyl] 500 mg PO TID 12 Days #36 tablet Home Medications: Amitriptyline [Elavil] 20 mg PO HS 05/18/15 [History] Aspirin Enteric Coated [Aspirin EC] 81 mg PO DAILY 05/18/15 [History] Clopidogrel [Plavix] 75 mg PO DAILY 05/18/15 [History] Cranberry 500 mg PO DAILY 05/18/15 [History] Gabapentin [Neurontin] 600 mg PO TID 05/18/15 [History] Hydrocodone/Acetaminophen [[place] 10-325 Tablet] 2 tab PO TID 05/18/15 [History] Insulin ASPART [NovoLOG] 0 unit SQ TIDWM 05/18/15 [History] Insulin DETEMIR [Levemir] 65 unit SQ HS 05/18/15 [History] Multivitamin/Iron/Folic Acid [Centrum Complete Multivit Tab] 1 tab PO DAILY [History] Potassium Chloride 10 meq PO DAILY 05/18/15 [History] Simvastatin [Zocor] 20 mg PO HS 05/18/15 [History] Bupropion HCl [Wellbutrin Xl] 300 mg PO DAILY 02/08/17 [History] Cyanocobalamin (Vitamin B-12) [Vitamin B-12] 100 mcg PO DAILY 02/08/17 [History] Dicyclomine [Bentyl] 10 mg PO BID 02/08/17 [History] FLUoxetine HCl [Prozac] 40 mg PO DAILY 02/08/17 [History] Meloxicam [Mobic] 15 mg PO DAILY 02/08/17 [History] Oxybutynin [Ditropan] 10 mg PO BID 02/08/17 [History] Ropinirole HCl [Requip] 2 mg PO HS 02/08/17 [History] Metformin HCl [Glucophage] 1,000 mg PO BID 07/24/17 [History] Lactobacillus [Culturelle] 2 each PO BID #60 cap.sprink 07/29/17 [Rx] Lisinopril [Zestril] 5 mg PO DAILY #30 tablet 07/29/17 [Rx] metroNIDAZOLE [Flagyl] 500 mg PO TID 10 Days #30 tablet 07/29/17 [Rx] metroNIDAZOLE [Flagyl] 500 mg PO TID 12 Days #36 tablet 07/29/17 [Rx] Allergies/Adverse Reactions: 3 Allergy/AdvReac Type Severity Reaction Status Date / Time No Known Allergies Allergy Verified 05/18/15 11:08 Date of admission: 07/25/17 01:32 Primary care physician: Judy Montoya Discharging clinician: Catrachito Silverman - Patient Status Disposition: Home, Self-Care Condition: Good Functional capacity at discharge: independent ambulation Overall status at discharge: patient is progressing back to baseline - Discharge Instructions Instructions: Urinary Tract Infection in Women (DC), Clostridium Difficile Infection (DC) Follow Up With: Judy Montoya [Primary Care Provider] - - Diet and Activity Activity: increase activity as tolerated Diet: advance to your usual diet Hospital course: Ms. Hernandez is a 67 year old female who presented to ER complaints of altered mental status and urinary incontinence. She was brought in by her family who reported the above history. In the ER, patient was found to have evidence of UTI and sepsis, diarrhea. She received fluid bolus, blood and urine cultures, and IV antibiotics. She was supplemented admitted to the hospitalist service. She was started on Rocephin for suspicion for Klepsiella UTI based on prior cultures. Urine cultures came back negative and Rocephin DC'd. She tested positive for C diff was started on oral vancomycin and Flagy. ALtered mental status resolved. She remained hemodynamically stable and afebrile. WBC were within normal limits. Her loose stools improved and became more formed. She was eating breakfast and lunch without issue. She was discharged home on FLagyl to continue for 12 days. - Time Spent with Patient Total time spent providing and/or coordinating discharge services: - Constitutional Vitals: Temp Pulse Resp BP Pulse Ox 98.3 F 80 20 174/71 94 07/29/17 15:50 07/29/17 15:50 07/29/17 15:50 07/29/17 15:50 07/29/17 15:50 General appearance: Present: cooperative, A&O X 2, A&O X 3, pleasant, no acute distress, answers questions appropriately Exam: CVS: RRR Lungs: CTAB Abd: Soft, Nt/nd, +BS all quadrants.
[2017-07-29] MEDS: rOPINIRole 1 MG TABLET PO SCH (20:39)
[2017-07-29] MEDS ORDERED: Insulin DETEMIR 100 UNIT/ML X5UNITS SQ SCH (21:00)
== END 2017-07-29 21:26 | disposition home or self-care (01) | DRG 871 ==
LOC: 3ANU 16:08 → EMEROO 16:08 → 3ANU 22:29 → SUATTDRO 07-25 01:32 → 3ANU 07-26 15:04
PROVIDERS: ADMIT Pediatrics; ATTEND Student in an Organized Health Care Education/Training Program

== ENCOUNTER 2017-12-26 21:27 | Observation (INO) ==
[2017-12-26] MEDS ORDERED: 0.9 % Sodium Chloride 1,000 ML IVC ONE ×2 (21:55→23:15)
--- NOTE | 2017-12-26 21:58 | Emergency Department Note ---
Disposition Clinical Impression: Inability to urinate, Dehydration, Acute kidney injury Altered mental status Qualifiers: Altered mental status type: delirium Qualified Code(s): R41.0 - Disorientation , unspecified Disposition: Admitted As Inpatient Condition: Fair Time of Disposition: 02:39 Weakness HPI - General Chief complaint: ED Weakness Stated complaint: can't urinate, disoriented Time Seen by Provider: 12/26/17 21:32 Nursing Notes Reviewed: Yes Vital Signs Reviewed: Yes - History of Present Illness HPI Narrative: 67-year-old female brought in for urinary symptoms inability to urinate, dysuria and generalized weakness with episodes of altered mental status that started today. Patient brought in from home. Patient is with her daughter recognized patient's symptoms and and explained that patient was hallucinating and talking to her grandson that was not currently present in the room about playing in the sandbox he was a little child. Her grandson is actually 16 years old, and does not plain sandboxes any longer. Daughter states that she had to help her mother to the bathroom one day ago andshe noticed patient is having difficulties urinating. Since patient's had multiple urinary tract infections in the past and they all present with the same symptoms as patient is having today. Patient also complains of some shortness of breath but no chest pain. Patient is a history of diabetes, hypertension, prior CVA (12 years ago) with no new presenting symptoms. Pain Scale: 3 - Related Data Home Medications Medication Instructions Recorded Confirmed Amitriptyline [Elavil] 20 mg PO HS 05/18/15 07/24/17 Aspirin Enteric Coated [Aspirin EC] 81 mg PO DAILY 05/18/15 07/24/17 Clopidogrel [Plavix] 75 mg PO DAILY 05/18/15 07/24/17 Cranberry 500 mg PO DAILY 05/18/15 07/24/17 Gabapentin [Neurontin] 600 mg PO TID 05/18/15 07/24/17 Hydrocodone/Acetaminophen [[place] 2 tab PO TID 05/18/15 07/24/17 10-325 Tablet] Insulin ASPART [NovoLOG] 0 unit SQ TIDWM 05/18/15 07/24/17 Insulin DETEMIR [Levemir] 65 unit SQ HS 05/18/15 07/29/17 Multivitamin/Iron/Folic Acid 1 tab PO DAILY 05/18/15 07/24/17 [Centrum Complete Multivit Tab] Potassium Chloride 10 meq PO DAILY 05/18/15 07/24/17 Simvastatin [Zocor] 20 mg PO HS 05/18/15 07/24/17 Bupropion HCl [Wellbutrin Xl] 300 mg PO DAILY 02/08/17 07/24/17 Cyanocobalamin (Vitamin B-12) 100 mcg PO DAILY 02/08/17 07/24/17 [Vitamin B-12] Dicyclomine [Bentyl] 10 mg PO BID 02/08/17 07/24/17 FLUoxetine HCl [Prozac] 40 mg PO DAILY 02/08/17 07/24/17 Meloxicam [Mobic] 15 mg PO DAILY 02/08/17 07/24/17 Oxybutynin [Ditropan] 10 mg PO BID 02/08/17 07/24/17 Ropinirole HCl [Requip] 2 mg PO HS 02/08/17 07/24/17 Metformin HCl [Glucophage] 1,000 mg PO BID 07/24/17 07/24/17 Previous Rx's Medication Instructions Recorded Lactobacillus [Culturelle] 2 each PO BID #60 cap.sprink 07/29/17 Lisinopril [Zestril] 5 mg PO DAILY #30 tablet 07/29/17 metroNIDAZOLE [Flagyl] 500 mg PO TID 10 Days #30 tablet 07/29/17 metroNIDAZOLE [Flagyl] 500 mg PO TID 12 Days #36 tablet 07/29/17 Allergies Allergy/AdvReac Type Severity Reaction Status Date / Time acetaminophen [From Percocet] AdvReac Itching Verified 12/26/17 21:30 Oxycodone [From Percocet] AdvReac Itching Verified 12/26/17 21:30 All systems ED: reviewed and negative except as stated. Review of Systems: As Per HPI Constitutional: Reports: weakness. Denies: fever, chills ENT ED: Reports: congestion Cardiovascular: Denies: chest pain, palpitations Respiratory: Reports: dyspnea. Denies: cough Gastrointestinal: Reports: abdominal pain (pelvic) Past Medical History - Past Medical History Attestation: Yes The following information was validated with the patient. Source: patient, nursing notes reviewed Medical history: Reports: CVA, diabetes, GERD, hyperlipidemia Surgical history: Reports: appendectomy, cholecystectomy, hysterectomy, knee replacement, other Psychiatric history: Reports: depression TOPPER PACKER history: Reports: no TOPPER PACKER history - Social History Smoking Status: Former smoker Smokeless Tobacco Status: No Alcohol use: Reports: none Drug use: Reports: none Physical Exam Vital Signs Temperature 98.1 F 12/26/17 21:28 Pulse Rate 90 12/26/17 21:28 Respiratory Rate 16 12/26/17 21:28 Blood Pressure 118/63 12/26/17 21:28 O2 Sat by Pulse Oximetry 96 12/26/17 21:28 Temperature 98.1 F 12/26/17 21:28 Pulse Rate 90 12/26/17 21:28 Respiratory Rate 16 12/26/17 21:28 Blood Pressure 118/63 12/26/17 21:28 O2 Sat by Pulse Oximetry 96 12/26/17 21:28 Oxygen Delivery Oxygen Delivery Room Air CONSTITUTIONAL: Well-appearing; well-nourished; A&O X 3, in no apparent distress and nontoxic appearing. Patient is afebrile, pulse 90, respirations 16 , blood pressure 118/63. 96% O2 sat. GCS of 15 HEAD: Normocephalic; atraumatic EYES: PERRL, no scleral icterus NOSE: The nose is normal in appearance without rhinorrhea NECK: No JVD or distended neck veins Mouth: Slight asymmetry to the mouth from previous stroke RESP: Normal chest excursion with respiration; bibasilar rales heard auscultation CARD: Regular rhythm, without murmurs, rub or gallop ABD: Non-distended; non-tender, soft, without rigidity, rebound or guarding,no pulsatile mass CHEST: No pain with palpation SKIN: Normal for age and race; warm and dry without diaphoresis ; no apparent lesions EXTREMITIES: Pulses are 2 plus and equal times 4 extremities, no peripheral edema or calf muscle pain NEUROLOGICAL: Patient is alert and oriented times three. Cranial nerves III- XII are intact. Sensory and motor functions are intact. Strength is 5/5 for flexion and extension in all 4 extremities. Patellar DTRS are equal and intact. Finger to nose testing is equal and normal bilaterally. No dysdiadochokinesis - General General appearance: alert Course - Reevaluation(s) Reevaluation #1: Patient's urine has no sign for UTI, has small bilirubin. Patient does have elevated creatinine and decrease in GFR representing an acute kidney injury. Unknown what causes this moment ordered LFTs and ammonia because patient shows small amount of bilirubin in her urine. Time: 23:14 Reevaluation #2: Acetaminophen and salicylate labs ordered. Patient doing well Time: 00:25 - Consultations Consultation #1: Dr. Kelsey the hospitalist as accepted patient for admission. Time: 02:39 Vital Signs Temperature 98.1 F 12/26/17 21:28 Pulse Rate 90 12/26/17 21:28 Respiratory Rate 16 12/26/17 21:28 Blood Pressure 118/63 12/26/17 21:28 O2 Sat by Pulse Oximetry 96 12/26/17 21:28 Temperature 98.0 F 12/27/17 04:25 Pulse Rate 76 12/27/17 04:25 Respiratory Rate 18 12/27/17 04:25 Blood Pressure 151/77 12/27/17 04:25 O2 Sat by Pulse Oximetry 95 12/27/17 04:25 Oxygen Delivery Oxygen Delivery Room Air Weakness - MDM Narrative Medical decision making narrative: Patient presents with urinary dysuria, frequency and now inability to urinate over the past 2 days as her for UTI. Associated confusion/altered mental status and generalized weakness. Patient has CVA in the past but has no new focal neurologic deficits with an NIH score of 0. No abnormal vital signs. Patient has periodic difficulty speaking because her mouth is dry. No clear reason to explain patient's altered mental status and elevated creatinine level. We tested and ammonia levels LFTs. Patient's AST is mildly elevated, CT head was negative for any intracranial abnormalities to explain recent events. Patient has no dysrhythmia, and negative for any elevation of salicylates or acetaminophen. Patient does not have a UTI and chest x-ray was clear of signs of pneumonia. Patient is doing better with IV hydration therapy. She has received 2 L IV and will be started on maintenance fluids at 125 mL per hour. Current plan is for admission for further observation and evaluation. Understands and agrees to treatment plan for admission. Patient was accepted for admission by Dr. Kelsey the hospitalist in stable condition. - Lab Data Lab results reviewed: Yes I reviewed the patient's lab results. Lab results narrative: Short CBC 12/26/17 Range/Units 22:21 WBC 9.3 (4.3-11.1) K/mcL Hgb 13.4 (11.5-15.4) g/dL Hct 40.5 (35.3-44.9) % Plt Count 273 (140-400) K/mcL Neutrophils # 5.9 (1.6-8.9) K/mcL BMP 12/26/17 Range/Units 21:55 Sodium 134 L (136-145) mEq/L Potassium 3.3 L (3.5-5.1) mEq/L Chloride 103 (98-107) mEq/L Carbon Dioxide 22 L (23-29) mEq/L BUN 16 (8-23) mg/dL Creatinine 1.39 H (0.60-1.20) mg/dL Glucose 133 H (70-105) mg/dL Calcium 8.7 (8.6-10.3) mg/dL Cardiac Enzymes 12/26/17 Range/Units 21:57 Troponin I < 0.03 (< 0.04) ng/mL Liver Function 12/26/17 Range/Units 21:55 Total Bilirubin 0.2 L (0.3-1.0) mg/dL Direct Bilirubin 0.1 (0.0-0.2) mg/dL AST 49 H (13-39) Units/L ALT 28 (7-52) Units/L Alkaline Phosphatase 49 (34-104) Units/L Albumin 4.0 (3.5-5.7) g/dL Urine 12/26/17 Range/Units 22:20 Urine Color Dark Yellow (Yellow) Urine Clarity Clear (Clear) Urine pH 5.0 (5.0-8.0) pH Units Ur Specific [place] 1.026 H (1.010-1.025) Urine Protein Trace (Neg-Trace) mg/dL Urine Glucose (UA) Normal (Normal) mg/dL Result diagrams: 12/26/17 22:21 12/26/17 21:55 Lab Results 12/26/17 12/26/17 12/26/17 Range/Units 21:55 21:57 22:20 WBC (4.3-11.1) K/mcL RBC (3.82-4.97) M/mcL Hgb (11.5-15.4) g/dL Hct (35.3-44.9) % MCV (83.0-100.0) fL MCH (28.0-33.3) pg MCHC (31.6-35.5) g/dL RDW (11.5-14.5) % Plt Count (140-400) K/mcL MPV (9.4-12.4) fL Immature Gran % (0-4) % Seg Neutrophils % % Lymphocytes % % Monocytes % % Eosinophils % % Basophils % % Neutrophils # (1.6-8.9) K/mcL Lymphocytes # (0.6-4.6) K/mcL Monocytes # (0.0-1.3) K/mcL Eosinophils # (0.0-0.6) K/mcL Basophils # (0.0-0.2) K/mcL Sodium 134 L (136-145) mEq/L Potassium 3.3 L (3.5-5.1) mEq/L Chloride 103 (98-107) mEq/L Carbon Dioxide 22 L (23-29) mEq/L BUN 16 (8-23) mg/dL Creatinine 1.39 H (0.60-1.20) mg/dL Est GFR ( Amer) 46 L (> 60) Est GFR (Non-Af Amer) 38 L (> 60) BUN/Creatinine Ratio 12 (6-26) Glucose 133 H (70-105) mg/dL Calculated Osmolality 281 (280-300) Calcium 8.7 (8.6-10.3) mg/dL Total Bilirubin 0.2 L (0.3-1.0) mg/dL Direct Bilirubin 0.1 (0.0-0.2) mg/dL Indirect Bilirubin 0.1 (0.0-1.2) mg/dL AST 49 H (13-39) Units/L ALT 28 (7-52) Units/L Alkaline Phosphatase 49 (34-104) Units/L Ammonia (16-53) mcmol/L Troponin I < 0.03 (< 0.04) ng/mL Serum Total Protein 6.7 (6.4-8.9) g/dL Albumin 4.0 (3.5-5.7) g/dL Globulin 2.7 (2.4-3.5) g/dL Albumin/Globulin Ratio 1.5 (1.1-2.2) Urine Color Dark Yellow (Yellow) Urine Clarity Clear (Clear) Urine pH 5.0 (5.0-8.0) pH Units Ur Specific [place] 1.026 H (1.010-1.025) Urine Protein Trace (Neg-Trace) mg/dL Urine Glucose (UA) Normal (Normal) mg/dL Urine Ketones Trace H (Negative) mg/dL Urine Blood Negative (Negative) Urine Nitrite Negative (Negative) Urine Bilirubin Small H (Negative) Urine Urobilinogen Normal (Normal) mg/dL Ur Leukocyte Esterase Negative (Negative) Urine Microscopic RBC 0-3 (0-3) per hpf Urine Microscopic WBC 0-3 (0-3) per hpf Ur Squamous Epith Cells Moderate H (None-Few) per lpf Urine Bacteria None Seen (None-Few) per hpf Hyaline Casts Few (None-Few) per lpf Salicylates < 2.5 L (15.0-30.0) mg/dL Acetaminophen < 10 L (10-20) mcg/mL 12/26/17 12/26/17 Range/Units 22:21 23:56 WBC 9.3 (4.3-11.1) K/mcL RBC 4.37 (3.82-4.97) M/mcL Hgb 13.4 (11.5-15.4) g/dL Hct 40.5 (35.3-44.9) % MCV 92.7 (83.0-100.0) fL MCH 30.7 (28.0-33.3) pg MCHC 33.1 (31.6-35.5) g/dL RDW 14.0 (11.5-14.5) % Plt Count 273 (140-400) K/mcL MPV 10.0 (9.4-12.4) fL Immature Gran % 0.4 (0-4) % Seg Neutrophils % 63.5 % Lymphocytes % 28.4 % Monocytes % 7.1 % Eosinophils % 0.3 % Basophils % 0.3 % Neutrophils # 5.9 (1.6-8.9) K/mcL Lymphocytes # 2.7 (0.6-4.6) K/mcL Monocytes # 0.7 (0.0-1.3) K/mcL Eosinophils # 0.0 (0.0-0.6) K/mcL Basophils # 0.0 (0.0-0.2) K/mcL Sodium (136-145) mEq/L Potassium (3.5-5.1) mEq/L Chloride (98-107) mEq/L Carbon Dioxide (23-29) mEq/L BUN (8-23) mg/dL Creatinine (0.60-1.20) mg/dL Est GFR ( Amer) (> 60) Est GFR (Non-Af Amer) (> 60) BUN/Creatinine Ratio (6-26) Glucose (70-105) mg/dL Calculated Osmolality (280-300) Calcium (8.6-10.3) mg/dL Total Bilirubin (0.3-1.0) mg/dL Direct Bilirubin (0.0-0.2) mg/dL Indirect Bilirubin (0.0-1.2) mg/dL AST (13-39) Units/L ALT (7-52) Units/L Alkaline Phosphatase (34-104) Units/L Ammonia 37 (16-53) mcmol/L Troponin I (< 0.04) ng/mL Serum Total Protein (6.4-8.9) g/dL Albumin (3.5-5.7) g/dL Globulin (2.4-3.5) g/dL Albumin/Globulin Ratio (1.1-2.2) Urine Color (Yellow) Urine Clarity (Clear) Urine pH (5.0-8.0) pH Units Ur Specific [place] (1.010-1.025) Urine Protein (Neg-Trace) mg/dL Urine Glucose (UA) (Normal) mg/dL Urine Ketones (Negative) mg/dL Urine Blood (Negative) Urine Nitrite (Negative) Urine Bilirubin (Negative) Urine Urobilinogen (Normal) mg/dL Ur Leukocyte Esterase (Negative) Urine Microscopic RBC (0-3) per hpf Urine Microscopic WBC (0-3) per hpf Ur Squamous Epith Cells (None-Few) per lpf Urine Bacteria (None-Few) per hpf Hyaline Casts (None-Few) per lpf Salicylates (15.0-30.0) mg/dL Acetaminophen (10-20) mcg/mL - Radiology Data Radiology results reviewed: Yes I reviewed the patient's radiology results. Chest X-Ray 12/26/17 21:56 IMPRESSION: No evidence of acute cardiopulmonary disease. D/ / José Allen MD / José Allen MD Interpreting Provider: José Allen MD Head CT 12/26/17 22:19 IMPRESSION: No acute intracranial abnormality. Opacification of the left sphenoid sinus . D/ / Sumanth Morales MD / Sumanth Morales MD Interpreting Provider: Sumanth Morales MD - EKG Data EKG attestation: Yes I reviewed and interpreted this EKG. EKG results narrative: EKG taken 12/26/2017 at 2219 hrs. shows sinus rhythm at a rate of 81 beats minute with no acute ST elevations or depressions any leads, no QRS widening or QT prolongation. No change from previous EKG taken 07/25/2017.
[2017-12-26 22:23] LABS: Basophils % 0.3 %; Eosinophils % 0.3 %; Hematocrit 40.5 % (35.3-44.9); Hemoglobin 13.4 g/dL (11.5-15.4); Immature Granulocytes % 0.4 % (0-4); Lymphocytes # 2.7 K/mcL (0.6-4.6); Lymphocytes % 28.4 %; Mean Corpuscular HGB Conc 33.1 g/dL (31.6-35.5); Mean Corpuscular Hemoglobin 30.7 pg (28.0-33.3); Mean Corpuscular Volume 92.7 fL (83.0-100.0); Monocytes # 0.7 K/mcL (0.0-1.3); Monocytes % 7.1 %; Neutrophils # 5.9 K/mcL (1.6-8.9); Platelet Count 273 K/mcL (140-400); Red Blood Count 4.37 M/mcL (3.82-4.97); Segmented Neutrophils % 63.5 %
[2017-12-26 22:31] LABS: Bilirubin,Urine Small (Negative); Blood,Urine Negative (Negative); Clarity,Urine Clear (Clear); Color,Urine Dark Yellow (Yellow); Glucose,Urine (UA) Normal (Normal); Ketones,Urine Trace mg/dL (Negative); Leukocyte Esterase,Urine Negative (Negative); Nitrite,Urine Negative (Negative); Protein,Urine Trace mg/dL (Neg-Trace); Specific Gravity,Urine 1.026 (1.010-1.025); Urobilinogen,Urine Normal (Normal)
[2017-12-26 22:35] LABS: Bacteria,Urine None Seen per hpf (None-Few); RBC,Urine 0-3 per hpf (0-3); Squamous Epithelial Cell,Urine Moderate per lpf (None-Few); WBC,Urine 0-3 per hpf (0-3)
[2017-12-26 22:44] LABS: Hyaline Casts,Urine Few per lpf (None-Few)
[2017-12-26 22:46] LABS: BUN/Creatinine Ratio 12 (6-26); Blood Urea Nitrogen 16 mg/dL (8-23); Calcium 8.7 mg/dL (8.6-10.3); Carbon Dioxide 22 mEq/L (23-29); Chloride 103 mEq/L (98-107); Glucose 133 mg/dL (70-105); Osmolality,Calculated 281 (280-300); Potassium 3.3 mEq/L (3.5-5.1); Sodium 134 mEq/L (136-145); eGFR For African Americans 46 (> 60); eGFR For Non-African Americans 38 (> 60)
--- NOTE | 2017-12-26 22:54 | Emergency Department Note ---
Disposition Clinical Impression: Altered mental status, Inability to urinate, Dehydration, Acute kidney injury Disposition: Admitted As Inpatient Condition: Fair General Adult HPI - General Chief complaint: ED Weakness Stated complaint: can't urinate, disoriented Time Seen by Provider: 12/26/17 21:32 - History of Present Illness Pain Scale: 3 - Related Data Home Medications Medication Instructions Recorded Confirmed Amitriptyline [Elavil] 20 mg PO HS 05/18/15 07/24/17 Aspirin Enteric Coated [Aspirin EC] 81 mg PO DAILY 05/18/15 07/24/17 Clopidogrel [Plavix] 75 mg PO DAILY 05/18/15 07/24/17 Cranberry 500 mg PO DAILY 05/18/15 07/24/17 Gabapentin [Neurontin] 600 mg PO TID 05/18/15 07/24/17 Hydrocodone/Acetaminophen [[place] 2 tab PO TID 05/18/15 07/24/17 10-325 Tablet] Insulin ASPART [NovoLOG] 0 unit SQ TIDWM 05/18/15 07/24/17 Insulin DETEMIR [Levemir] 65 unit SQ HS 05/18/15 07/29/17 Multivitamin/Iron/Folic Acid 1 tab PO DAILY 05/18/15 07/24/17 [Centrum Complete Multivit Tab] Potassium Chloride 10 meq PO DAILY 05/18/15 07/24/17 Simvastatin [Zocor] 20 mg PO HS 05/18/15 07/24/17 Bupropion HCl [Wellbutrin Xl] 300 mg PO DAILY 02/08/17 07/24/17 Cyanocobalamin (Vitamin B-12) 100 mcg PO DAILY 02/08/17 07/24/17 [Vitamin B-12] Dicyclomine [Bentyl] 10 mg PO BID 02/08/17 07/24/17 FLUoxetine HCl [Prozac] 40 mg PO DAILY 02/08/17 07/24/17 Meloxicam [Mobic] 15 mg PO DAILY 02/08/17 07/24/17 Oxybutynin [Ditropan] 10 mg PO BID 02/08/17 07/24/17 Ropinirole HCl [Requip] 2 mg PO HS 02/08/17 07/24/17 Metformin HCl [Glucophage] 1,000 mg PO BID 07/24/17 07/24/17 Previous Rx's Medication Instructions Recorded Lactobacillus [Culturelle] 2 each PO BID #60 cap.sprink 07/29/17 Lisinopril [Zestril] 5 mg PO DAILY #30 tablet 07/29/17 metroNIDAZOLE [Flagyl] 500 mg PO TID 10 Days #30 tablet 07/29/17 metroNIDAZOLE [Flagyl] 500 mg PO TID 12 Days #36 tablet 07/29/17 Allergies Allergy/AdvReac Type Severity Reaction Status Date / Time acetaminophen [From Percocet] AdvReac Itching Verified 12/26/17 21:30 Oxycodone [From Percocet] AdvReac Itching Verified 12/26/17 21:30 Constitutional: Reports: weakness. Denies: fever, chills ENT ED: Reports: congestion Cardiovascular: Denies: chest pain, palpitations Respiratory: Reports: dyspnea. Denies: cough Gastrointestinal: Reports: abdominal pain (pelvic) Past Medical History - Past Medical History Medical history: Reports: CVA, diabetes, GERD, hyperlipidemia Surgical history: Reports: appendectomy, cholecystectomy, hysterectomy, knee replacement, other Psychiatric history: Reports: depression COUNSELLING PSYCHOLOGIST history: Reports: no COUNSELLING PSYCHOLOGIST history - Social History Smoking Status: Former smoker Smokeless Tobacco Status: No Alcohol use: Reports: none Drug use: Reports: none Physical Exam - General General appearance: alert Course Vital Signs Temperature 98.1 F 12/26/17 21:28 Pulse Rate 90 12/26/17 21:28 Respiratory Rate 16 12/26/17 21:28 Blood Pressure 118/63 12/26/17 21:28 O2 Sat by Pulse Oximetry 96 12/26/17 21:28 Temperature 98.0 F 12/27/17 04:25 Pulse Rate 76 12/27/17 04:25 Respiratory Rate 18 12/27/17 04:25 Blood Pressure 151/77 12/27/17 04:25 O2 Sat by Pulse Oximetry 95 12/27/17 04:25 Oxygen Delivery Oxygen Delivery Room Air Medical Decision Making - Lab Data Result diagrams: 12/26/17 22:21 12/26/17 21:55 Lab Results 12/26/17 12/26/17 12/26/17 Range/Units 21:55 21:57 22:20 WBC (4.3-11.1) K/mcL RBC (3.82-4.97) M/mcL Hgb (11.5-15.4) g/dL Hct (35.3-44.9) % MCV (83.0-100.0) fL MCH (28.0-33.3) pg MCHC (31.6-35.5) g/dL RDW (11.5-14.5) % Plt Count (140-400) K/mcL MPV (9.4-12.4) fL Immature Gran % (0-4) % Seg Neutrophils % % Lymphocytes % % Monocytes % % Eosinophils % % Basophils % % Neutrophils # (1.6-8.9) K/mcL Lymphocytes # (0.6-4.6) K/mcL Monocytes # (0.0-1.3) K/mcL Eosinophils # (0.0-0.6) K/mcL Basophils # (0.0-0.2) K/mcL Sodium 134 L (136-145) mEq/L Potassium 3.3 L (3.5-5.1) mEq/L Chloride 103 (98-107) mEq/L Carbon Dioxide 22 L (23-29) mEq/L BUN 16 (8-23) mg/dL Creatinine 1.39 H (0.60-1.20) mg/dL Est GFR ( Amer) 46 L (> 60) Est GFR (Non-Af Amer) 38 L (> 60) BUN/Creatinine Ratio 12 (6-26) Glucose 133 H (70-105) mg/dL Calculated Osmolality 281 (280-300) Calcium 8.7 (8.6-10.3) mg/dL Total Bilirubin 0.2 L (0.3-1.0) mg/dL Direct Bilirubin 0.1 (0.0-0.2) mg/dL Indirect Bilirubin 0.1 (0.0-1.2) mg/dL AST 49 H (13-39) Units/L ALT 28 (7-52) Units/L Alkaline Phosphatase 49 (34-104) Units/L Ammonia (16-53) mcmol/L Troponin I < 0.03 (< 0.04) ng/mL Serum Total Protein 6.7 (6.4-8.9) g/dL Albumin 4.0 (3.5-5.7) g/dL Globulin 2.7 (2.4-3.5) g/dL Albumin/Globulin Ratio 1.5 (1.1-2.2) Urine Color Dark Yellow (Yellow) Urine Clarity Clear (Clear) Urine pH 5.0 (5.0-8.0) pH Units Ur Specific [place] 1.026 H (1.010-1.025) Urine Protein Trace (Neg-Trace) mg/dL Urine Glucose (UA) Normal (Normal) mg/dL Urine Ketones Trace H (Negative) mg/dL Urine Blood Negative (Negative) Urine Nitrite Negative (Negative) Urine Bilirubin Small H (Negative) Urine Urobilinogen Normal (Normal) mg/dL Ur Leukocyte Esterase Negative (Negative) Urine Microscopic RBC 0-3 (0-3) per hpf Urine Microscopic WBC 0-3 (0-3) per hpf Ur Squamous Epith Cells Moderate H (None-Few) per lpf Urine Bacteria None Seen (None-Few) per hpf Hyaline Casts Few (None-Few) per lpf Salicylates < 2.5 L (15.0-30.0) mg/dL Acetaminophen < 10 L (10-20) mcg/mL 12/26/17 12/26/17 Range/Units 22:21 23:56 WBC 9.3 (4.3-11.1) K/mcL RBC 4.37 (3.82-4.97) M/mcL Hgb 13.4 (11.5-15.4) g/dL Hct 40.5 (35.3-44.9) % MCV 92.7 (83.0-100.0) fL MCH 30.7 (28.0-33.3) pg MCHC 33.1 (31.6-35.5) g/dL RDW 14.0 (11.5-14.5) % Plt Count 273 (140-400) K/mcL MPV 10.0 (9.4-12.4) fL Immature Gran % 0.4 (0-4) % Seg Neutrophils % 63.5 % Lymphocytes % 28.4 % Monocytes % 7.1 % Eosinophils % 0.3 % Basophils % 0.3 % Neutrophils # 5.9 (1.6-8.9) K/mcL Lymphocytes # 2.7 (0.6-4.6) K/mcL Monocytes # 0.7 (0.0-1.3) K/mcL Eosinophils # 0.0 (0.0-0.6) K/mcL Basophils # 0.0 (0.0-0.2) K/mcL Sodium (136-145) mEq/L Potassium (3.5-5.1) mEq/L Chloride (98-107) mEq/L Carbon Dioxide (23-29) mEq/L BUN (8-23) mg/dL Creatinine (0.60-1.20) mg/dL Est GFR ( Amer) (> 60) Est GFR (Non-Af Amer) (> 60) BUN/Creatinine Ratio (6-26) Glucose (70-105) mg/dL Calculated Osmolality (280-300) Calcium (8.6-10.3) mg/dL Total Bilirubin (0.3-1.0) mg/dL Direct Bilirubin (0.0-0.2) mg/dL Indirect Bilirubin (0.0-1.2) mg/dL AST (13-39) Units/L ALT (7-52) Units/L Alkaline Phosphatase (34-104) Units/L Ammonia 37 (16-53) mcmol/L Troponin I (< 0.04) ng/mL Serum Total Protein (6.4-8.9) g/dL Albumin (3.5-5.7) g/dL Globulin (2.4-3.5) g/dL Albumin/Globulin Ratio (1.1-2.2) Urine Color (Yellow) Urine Clarity (Clear) Urine pH (5.0-8.0) pH Units Ur Specific [place] (1.010-1.025) Urine Protein (Neg-Trace) mg/dL Urine Glucose (UA) (Normal) mg/dL Urine Ketones (Negative) mg/dL Urine Blood (Negative) Urine Nitrite (Negative) Urine Bilirubin (Negative) Urine Urobilinogen (Normal) mg/dL Ur Leukocyte Esterase (Negative) Urine Microscopic RBC (0-3) per hpf Urine Microscopic WBC (0-3) per hpf Ur Squamous Epith Cells (None-Few) per lpf Urine Bacteria (None-Few) per hpf Hyaline Casts (None-Few) per lpf Salicylates (15.0-30.0) mg/dL Acetaminophen (10-20) mcg/mL Attestation Statement - Attestation Attestation: I examined this patient and my medical decision-making was reviewed with the Resident Physician. I agree with the documented findings, disposition and treatment plan as described except to the extent set forth below. Patient presents to the ED with a chief complaint of confusion. She has had upper respiratory symptoms for a few days. She started having urinary retention and burning with urination. Tonight about an hour prior to arrival she became confused and started saying things about her grandson playing in a sandbox. Her grandson's a teenager. No fever. No chest pain or trouble breathing. She is awake and alert on examination. Oriented and appropriate for us. Neurologically intact with an NIH scale of 0. Plan. [place]. Labs and UA. Reevaluate.
[2017-12-26 23:35] LABS: Alanine Aminotransferase 28 Units/L (7-52); Albumin/Globulin Ratio 1.5 (1.1-2.2); Alkaline Phosphatase 49 Units/L (34-104); Aspartate Amino Transferase 49 Units/L (13-39); Bilirubin,Direct 0.1 mg/dL (0.0-0.2); Bilirubin,Indirect 0.1 mg/dL (0.0-1.2); Bilirubin,Total 0.2 mg/dL (0.3-1.0); Globulin 2.7 g/dL (2.4-3.5); Total Protein 6.7 g/dL (6.4-8.9)
[2017-12-27 01:57] LABS: Acetaminophen < 10 mcg/mL (10-20); Salicylate < 2.5 mg/dL (15.0-30.0)
[2017-12-27] MEDS ORDERED: Ondansetron 4 MG/2 ML VIAL IVP PRN (02:35)
[2017-12-27] MEDS ORDERED: Naloxone 0.4 MG/ML INJ IVP PRN (02:35)
[2017-12-27] MEDS: 0.9 % Sodium Chloride 1,000 ML IVC SCH ×2 (03:56→12:54)
--- NOTE | 2017-12-27 03:57 | Internal Med History&Physical ---
Date of Encounter: 12/27/17 Time of Encounter: 03:00 Internal Medicine - H&P: HPI Chief complaint: Confusion, lethargic and weakness Admitted From: Emergency Dept Plans for Post Hospital Care: Home History of present illness: Ms. Hernandez is a 67 year old female with known past medical history of diabetes type II, hypertension, CVA and depression patient was presented to the emergency room last night complaining about patient has been having some generalized weakness and lethargic from last couple of days. Apparently patient had URI/flulike symptoms a week ago which improved now, however it affected her appetite she is not eating and drinking well from last few days. Yesterday all day she had very minimal urine output. And also patient was confused couple of times as per the patient's daughter who is at bedside now. Patient does have acute kidney injury due to dehydration with creatinine of 1.39. Patient was started on aggressive IV hydration now patient feels she is back to normal she is alert, awake and oriented to time place person. Patient denied any focal neurological deficits / symptoms. Past Med Surg Social Fam HX - Past Medical History Medical history: CVA, diabetes, GERD, hyperlipidemia Psychiatric history: depression - Past Surgical History Surgical History: appendectomy, cholecystectomy, hysterectomy, knee replacement , other - Social History Smoking Status: Former smoker Smokeless Tobacco Status: No Alcohol use: none Drug use: none - Family History Mother Living Status: Still Living Hx Family Cardiac Disorders: Yes Hx Family Respiratory Disorders: Yes (COPD) Hx Family GI Disorders: Yes (Diverticulitis) Hx Family Endocrine Disorder: Yes (DM) Father Adopted: No Family Member Ethnicity: Non- Living Status: Hx Family Cardiac Disorders: Yes (heart attack) Hx Family Respiratory Disorders: No Hx Family Cancer: No Hx Family GI Disorders: No Hx Family Endocrine Disorder: Yes (DM) Hx Family Neuromuscular Disorders: No Hx Family Neurologic Disorders: No Hx Family HEENT Disorders: No Hx Family Autoimmune Disorders: No Internal Medicine - H&P: Meds Amitriptyline [Elavil] 20 mg PO HS 05/18/15 [History] Aspirin Enteric Coated [Aspirin EC] 81 mg PO DAILY 05/18/15 [History] Clopidogrel [Plavix] 75 mg PO DAILY 05/18/15 [History] Cranberry 500 mg PO DAILY 05/18/15 [History] Gabapentin [Neurontin] 600 mg PO TID 05/18/15 [History] Hydrocodone/Acetaminophen [[place] 10-325 Tablet] 2 tab PO TID 05/18/15 [History] Insulin ASPART [NovoLOG] 0 unit SQ TIDWM 05/18/15 [History] Insulin DETEMIR [Levemir] 65 unit SQ HS 05/18/15 [History] Multivitamin/Iron/Folic Acid [Centrum Complete Multivit Tab] 1 tab PO DAILY [History] Potassium Chloride 10 meq PO DAILY 05/18/15 [History] Simvastatin [Zocor] 20 mg PO HS 05/18/15 [History] Bupropion HCl [Wellbutrin Xl] 300 mg PO DAILY 02/08/17 [History] Cyanocobalamin (Vitamin B-12) [Vitamin B-12] 100 mcg PO DAILY 02/08/17 [History] Dicyclomine [Bentyl] 10 mg PO BID 02/08/17 [History] FLUoxetine HCl [Prozac] 40 mg PO DAILY 02/08/17 [History] Meloxicam [Mobic] 15 mg PO DAILY 02/08/17 [History] Oxybutynin [Ditropan] 10 mg PO BID 02/08/17 [History] Ropinirole HCl [Requip] 2 mg PO HS 02/08/17 [History] Metformin HCl [Glucophage] 1,000 mg PO BID 07/24/17 [History] Lactobacillus [Culturelle] 2 each PO BID #60 cap.sprink 07/29/17 [Rx] Lisinopril [Zestril] 5 mg PO DAILY #30 tablet 07/29/17 [Rx] metroNIDAZOLE [Flagyl] 500 mg PO TID 10 Days #30 tablet 07/29/17 [Rx] metroNIDAZOLE [Flagyl] 500 mg PO TID 12 Days #36 tablet 07/29/17 [Rx] 3 Allergy/AdvReac Type Severity Reaction Status Date / Time acetaminophen [From Percocet] AdvReac Itching Verified 12/26/17 21:30 Oxycodone [From Percocet] AdvReac Itching Verified 12/26/17 21:30 All Systems PM: A 10-system review of systems was performed and is negative for pertinent findings except as documented above in the HPI. Review of systems: All the systems are reviewed everything is benign except the systems and symptoms I mentioned in the history of present illness - Constitutional Vitals: Temp Pulse Resp BP Pulse Ox 98.1 F 88 18 143/81 94 12/26/17 21:28 12/27/17 02:12 12/27/17 03:22 12/27/17 03:22 12/27/17 02:12 General appearance: Present: cooperative, A&O X 3, no acute distress, answers questions appropriately - Head Head exam: Present: atraumatic, normal inspection - Neck Neck exam general surgery: Present: supple - Respiratory Respiratory exam: Present: decreased breath sounds. Absent: rales, respiratory distress, rhonchi, wheezes - Cardiovascular Cardiovascular exam: Present: RRR, +S1, +S2. Absent: tachycardia - GI/Abdominal GI/Abdominal exam: Present: normal bowel sounds, soft. Absent: rebound, rigid, tenderness - Extremities Exam Extremities exam: Absent: calf tenderness, pedal edema, tenderness - Back Exam Back exam: Absent: CVA tenderness (L), CVA tenderness (R) - Neurological Exam Neurological exam: Present: alert, oriented X3, no focal deficits, strengths equal and symetr throughout. Absent: pronater drift, facial droop, speech deficit - Psychiatric Psychiatric exam: Present: normal affect, normal mood - Skin Skin exam: Absent: rash Internal Med - H&P Results - Labs CBC & Chem 7: 12/26/17 22:21 12/26/17 21:55 - Assessment and plan (1) Altered mental status Current Visit: Yes Status: Acute Assessment and plan: Place the pt into tele for observation Her AMS seems to be due to metabolic encephalopathy with dehydration and SILVERIO Resolved now cont symptomatic and supportive care IV hydration Avoid any BZD and Pain medication Talked to patient's daughter at bed side and explained to her about current care Qualifiers: Altered mental status type: delirium Qualified Code(s): R41.0 - Disorientation, unspecified (2) Acute kidney injury Current Visit: Yes Status: Acute Assessment and plan: Due to dehdyration cont IVF [place] placed in ER will d/c [place] Reviewed UA - no signs of inf (3) Dehydration Current Visit: Yes Status: Acute (4) Hypertension Current Visit: No Status: Chronic Assessment and plan: resumed all home meds Qualifiers: Hypertension type: essential hypertension Qualified Code(s): I10 - Essential (primary) hypertension (5) IDDM (insulin dependent diabetes mellitus) Current Visit: No Status: Chronic Assessment and plan: On ISS + Levemir - Time Spent With Patient Total time spent is greater than 50% in coordination of care (as documented) at patient's floor/unit and/or counseling patient:
[2017-12-27 06:54] LABS: Basophils % 0.3 %; Eosinophils % 0.5 %; Hematocrit 35.5 % (35.3-44.9); Immature Granulocytes % 0.1 % (0-4); Lymphocytes # 3.2 K/mcL (0.6-4.6); Lymphocytes % 43.8 %; Mean Corpuscular HGB Conc 32.4 g/dL (31.6-35.5); Mean Corpuscular Hemoglobin 29.6 pg (28.0-33.3); Mean Corpuscular Volume 91.5 fL (83.0-100.0); Mean Platelet Volume 10.3 fL (9.4-12.4); Monocytes # 0.6 K/mcL (0.0-1.3); Monocytes % 7.9 %; Neutrophils # 3.5 K/mcL (1.6-8.9); Platelet Count 245 K/mcL (140-400); Red Blood Count 3.88 M/mcL (3.82-4.97); Red Cell Distribution Width 14.1 % (11.5-14.5); Segmented Neutrophils % 47.4 %
[2017-12-27 06:55] LABS: Hemoglobin 11.5 g/dL (11.5-15.4)
[2017-12-27 07:08] LABS: BUN/Creatinine Ratio 12 (6-26); Blood Urea Nitrogen 12 mg/dL (8-23); Calcium 7.7 mg/dL (8.6-10.3); Carbon Dioxide 21 mEq/L (23-29); Chloride 110 mEq/L (98-107); Glucose 157 mg/dL (70-105); Osmolality,Calculated 289 (280-300); Potassium 3.4 mEq/L (3.5-5.1); Sodium 138 mEq/L (136-145); eGFR For African Americans > 60 (> 60); eGFR For Non-African Americans 56 (> 60)
--- NOTE | 2017-12-27 14:07 | Event Note ---
Date of Encounter: 12/27/17 Time of Encounter: 14:03 Seen and examined at the bedside Morbidly obese, DM II, HTN, Depression placed to observation for SILVERIO, encephalopathy. Back to baseline SILVERIO resolved Confirm and restart home meds
[2017-12-27] MEDS: Nystatin POWDER 30 GM BOTTLE TP SCH ×2 (14:21→20:39)
[2017-12-27] MEDS ORDERED: D5% in Water 1,000 ML IVC PRN (20:42)
[2017-12-27] MEDS ORDERED: *HR* Dextrose 50 % in Water (Syg) 50 ML SYRINGE IVP PRN (20:42)
[2017-12-27] MEDS ORDERED: Dextrose Gel 15 GM/37.5 ML TUBE PO PRN ×2 (20:42)
[2017-12-27] MEDS ORDERED: Insulin LISPRO 300 UNITS/3 ML VIAL SQ SCH (21:00)
[2017-12-27] MEDS ORDERED: Insulin DETEMIR 100 UNIT/ML X5UNITS SQ SCH (21:00)
[2017-12-27] MEDS ORDERED: rOPINIRole 1 MG TABLET PO SCH (21:00)
[2017-12-27] MEDS: Gabapentin 300 MG CAPSULE PO SCH (21:03)
[2017-12-28] MEDS ORDERED: Insulin LISPRO 300 UNITS/3 ML VIAL SQ SCH (07:30)
[2017-12-28 07:42] VITALS: BP 159/82
[2017-12-28] MEDS ORDERED: BuPROPion XL (24 HR) 150 MG TABLET PO SCH (09:00)
[2017-12-28] MEDS ORDERED: Aspirin Enteric Coated 81 MG Tablet PO SCH (09:00)
[2017-12-28] MEDS ORDERED: FLUoxetine 20 MG CAPSULE PO SCH (09:00)
[2017-12-28] MEDS ORDERED: Multivit/Ca/Min/Fe/FA 1 TAB TABLET PO SCH (09:00)
[2017-12-28] MEDS ORDERED: Cyanocobalamin (B-12) 1,000 MCG TABLET PO SCH (09:00)
[2017-12-28] MEDS: Gabapentin 300 MG CAPSULE PO SCH (09:10)
[2017-12-28] MEDS: Nystatin POWDER 30 GM BOTTLE TP SCH (09:11)
[2017-12-28 09:24] LABS: BUN/Creatinine Ratio 8 (6-26); Blood Urea Nitrogen 5 mg/dL (8-23); Calcium 8.5 mg/dL (8.6-10.3); Chloride 108 mEq/L (98-107); Glucose 106 mg/dL (70-105); Osmolality,Calculated 286 (280-300); Potassium 3.6 mEq/L (3.5-5.1); Sodium 139 mEq/L (136-145); eGFR For African Americans > 60 (> 60); eGFR For Non-African Americans > 60 (> 60)
--- NOTE | 2017-12-28 09:39 | Discharge Summary ---
- NOTES TO OUTPATIENT PROVIDER Notes to Outpatient Provider: She was admitted for some weakness , disorientation and SILVERIO. She has improved with IVF hydration, head and chest imaging unremarkable. Date of Encounter: 12/28/17 Time of Encounter: 09:35 - Discharge Diagnosis (1) Hypertension Priority: Secondary Status: Chronic Qualifiers: Hypertension type: essential hypertension Qualified Code(s): I10 - Essential (primary) hypertension (2) IDDM (insulin dependent diabetes mellitus) Priority: Secondary Status: Chronic (3) Altered mental status Priority: Primary Status: Resolved Qualifiers: Altered mental status type: disorientation Qualified Code(s): R41.0 - Disorientation, unspecified (4) Dehydration Priority: Primary Status: Resolved (5) Acute kidney injury Priority: Primary Status: Resolved Hospital course: Ms. Hernandez is a 67 year old female with known past medical history of diabetes type II, hypertension, CVA and depression patient was presented to the emergency room 12/27 complaining about having some generalized weakness and lethargic from last couple of days. She had [place] with [place] and though she might have "stressed herself". Apparently patient had URI/ flulike symptoms a week ago which improved now, however it affected her appetite she is not eating and drinking well from last few days. And also patient was confused couple of times as per the patient's daughter who was at bedside. Patient did have acute kidney injury due to dehydration with creatinine of 1.39 on admission. Patient was started on aggressive IV hydration and at time of review by admitting hospitalist, patient felt she was back to normal and she was alert, awake and oriented to time place person. Patient denied any focal neurological deficits / symptoms. He renal function has returned to her baseline with IVF hydration. Other work up was unremarkable, UA was negative, CBC was at baseline, And Brain imaging ruled out ischemic event She is seen and examined at bedside this a.m without any complains She is discharged home without any changes in her home meds in stable condition Discharge discussed with: patient, nurse - Time Spent with Patient Total time spent providing and/or coordinating discharge services: Less than 30 minutes - Discharge Medications Home Medications: Amitriptyline [Elavil] 20 mg PO HS 05/18/15 [History] Aspirin Enteric Coated [Aspirin EC] 81 mg PO DAILY 05/18/15 [History] Clopidogrel [Plavix] 75 mg PO DAILY 05/18/15 [History] Cranberry 500 mg PO DAILY 05/18/15 [History] Gabapentin [Neurontin] 600 mg PO TID 05/18/15 [History] Hydrocodone/Acetaminophen [[place] 10-325 Tablet] 2 tab PO TID 05/18/15 [History] Insulin ASPART [NovoLOG] 0 unit SQ TIDWM 05/18/15 [History] Insulin DETEMIR [Levemir] 64 unit SQ HS 05/18/15 [History] Multivitamin/Iron/Folic Acid [Centrum Complete Multivit Tab] 1 tab PO DAILY [History] Potassium Chloride 10 meq PO DAILY 05/18/15 [History] Simvastatin [Zocor] 20 mg PO HS 05/18/15 [History] Bupropion HCl [Wellbutrin Xl] 300 mg PO DAILY 02/08/17 [History] Cyanocobalamin (Vitamin B-12) [Vitamin B-12] 100 mcg PO DAILY 02/08/17 [History] FLUoxetine HCl [Prozac] 40 mg PO DAILY 02/08/17 [History] Meloxicam [Mobic] 15 mg PO DAILY 02/08/17 [History] Oxybutynin [Ditropan] 10 mg PO BID 02/08/17 [History] Ropinirole HCl [Requip] 2 mg PO HS 02/08/17 [History] Metformin HCl [Glucophage] 1,000 mg PO BID 07/24/17 [History] Ranitidine HCl [Acid [employer]] 150 mg PO HS 12/28/17 [History] Allergies/Adverse Reactions: 3 Allergy/AdvReac Type Severity Reaction Status Date / Time acetaminophen [From Percocet] AdvReac Itching Verified 12/26/17 21:30 Oxycodone [From Percocet] AdvReac Itching Verified 12/26/17 21:30 Date of admission: 12/27/17 02:56 Primary care physician: Judy Montoya Discharging clinician: Brayden Govea Anticipated date of discharge: 12/28/17 - Constitutional Vitals: Temp Pulse Resp BP Pulse Ox 98.1 F 80 15 159/82 94 12/28/17 07:40 12/28/17 07:40 12/28/17 07:40 12/28/17 07:40 12/28/17 07:40 General appearance: Present: cooperative, A&O X 3, morbidly obese, no acute distress, answers questions appropriately - Head Head exam: Present: atraumatic, normocephalic - Eye Eye exam: Present: PERRL, conjuntiva pink, sclera anicteric Pupils: Present: PERRL - Neck Neck exam general surgery: Present: supple, trachea midline. Absent: lymphadenopathy - Respiratory Respiratory exam: Present: CTAB. Absent: accessory muscle use, rales, rhonchi, wheezes - Cardiovascular Cardiovascular exam: Present: RRR, +S1, +S2. Absent: diastolic murmur, gallop, rubs, systolic murmur - GI/Abdominal GI/Abdominal exam: Present: normal bowel sounds, soft, no peritoneal signs. Absent: distended, tenderness - Extremities Exam Extremities exam: Present: warm, radial pulses palpable and symmetrical. Absent : calf tenderness, cyanotic, pedal edema - Neurological Exam Neurological exam: Present: alert, CN II-XII intact, oriented X3, no focal deficits. Absent: pronater drift, facial droop, speech deficit - Skin Skin exam: Present: dry, intact - Patient Status Disposition: Home, Self-Care Condition: Good Functional capacity at discharge: uses cane/walker Overall status at discharge: patient is back to baseline - Discharge Instructions Instructions: Dehydration (DC), Acute Kidney Injury (DC) Follow Up With: Judy Montoya [Primary Care Provider] - 01/04/18 1:20 pm (Please bring your ID and insurance cart. Thank you) - Diet and Activity Activity: resume usual activities as tolerated Diet: low fat, low cholesterol, low salt diet
[2017-12-28 19:52] LABS: Carbon Dioxide 22 mEq/L (23-29)
--- NOTE | 2017-12-30 00:21 | Electrocardiograph Report ---
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
== END 2017-12-28 12:32 | disposition home or self-care (01) ==
LOC: 3ANU 21:27 → EMEROO 21:27 → 3ANU 12-27 03:23
PROVIDERS: ADMIT Family Medicine; ATTEND Internal Medicine

== ENCOUNTER 2020-08-04 14:05 | Inpatient (IN) ==
[2020-08-04] MEDS ORDERED: 0.9 % Sodium Chloride 1,000 ML IVC ONE (14:22)
[2020-08-04] MEDS ORDERED: Ondansetron 4 MG/2 ML VIAL IVP ONE (14:27)
[2020-08-04] MEDS ORDERED: Isovue-370 500 ML BOTTLE IVP ONE (14:28)
[2020-08-04] MEDS ORDERED: *HR* LORazepam 2 MG/ML VIAL IVP ONE (14:28)
[2020-08-04 15:05] LABS: Basophils % 0.2 %; Immature Granulocytes % 0.5 % (0-4); Mean Platelet Volume 9.6 fL (9.4-12.4)
[2020-08-04 15:06] LABS: Hematocrit 34.4 % (35.3-44.9); Hemoglobin 9.9 g/dL (11.5-15.4); Lymphocytes # 1.7 K/mcL (0.6-4.6); Lymphocytes % 13.2 %; Mean Corpuscular HGB Conc 28.8 g/dL (31.6-35.5); Mean Corpuscular Hemoglobin 22.2 pg (28.0-33.3); Mean Corpuscular Volume 77.1 fL (83.0-100.0); Monocytes # 0.3 K/mcL (0.0-1.3); Monocytes % 2.3 %; Neutrophils # 11.1 K/mcL (1.6-8.9); Platelet Count 536 K/mcL (140-400); Red Blood Count 4.46 M/mcL (3.82-4.97); Red Cell Distribution Width 17.2 % (11.5-14.5); Segmented Neutrophils % 83.8 %; White Blood Count 13.2 K/mcL (4.3-11.1)
[2020-08-04 15:24] LABS: BUN/Creatinine Ratio 10 (6-26); Blood Urea Nitrogen 8 mg/dL (8-23); Calcium 9.2 mg/dL (8.6-10.3); Carbon Dioxide 25 mEq/L (23-29); Chloride 97 mEq/L (98-107); Glucose 320 mg/dL (70-105); Magnesium 1.1 mg/dL (1.6-2.6); Osmolality,Calculated 287 (280-300); Potassium 3.6 mEq/L (3.5-5.1); Sodium 133 mEq/L (136-145); eGFR For African Americans > 60 (> 60); eGFR For Non-African Americans > 60 (> 60)
[2020-08-04 16:02] LABS: Bilirubin,Urine Negative (Negative); Blood,Urine Negative (Negative); Clarity,Urine Clear (Clear); Color,Urine Colorless (Yellow); Glucose,Urine (UA) >=1000 mg/dL (Normal); Ketones,Urine 10 mg/dL (Negative); Leukocyte Esterase,Urine Negative (Negative); Mucus,Urine Few per lpf (None-Few); Nitrite,Urine Negative (Negative); PH,Urine 7.5 pH Units (5.0-8.0); Protein,Urine 30 mg/dL (Neg-Trace); RBC,Urine 0-3 per hpf (0-3); Specific Gravity,Urine 1.016 (1.010-1.025); Squamous Epithelial Cell,Urine Few per hpf (None-Few); Urobilinogen,Urine Normal (Normal); WBC,Urine 0-3 per hpf (0-3)
[2020-08-04 16:24] LABS: Hypochromasia Present (Not Present)
[2020-08-04 16:26] LABS: Anisocytosis 1+ (Not Present); Microcytosis Present (Not Present); Platelet Estimate Normal (Normal); Polychromasia 1+ (Not Present)
[2020-08-04] MEDS ORDERED: Naloxone 0.4 MG/ML INJ IVP PRN (16:52)
[2020-08-04] MEDS ORDERED: Ringers Solution, Lactated 1,000 ML IVC SCH (17:00)
[2020-08-04] MEDS ORDERED: *HR* Dextrose 50 % in Water (Vial) 50 ML VIAL IVP PRN (17:35)
[2020-08-04] MEDS ORDERED: Dextrose Gel 15 GM/37.5 ML TUBE PO PRN ×2 (17:35)
[2020-08-04] MEDS ORDERED: D5% in Water 1,000 ML IVC PRN (17:35)
[2020-08-04] MEDS ORDERED: Ondansetron ODT 4 MG TAB.RAPDIS SL PRN (17:37)
[2020-08-04] MEDS: Insulin LISPRO 300 UNITS/3 ML VIAL SQ SCH (20:27)
[2020-08-04] MEDS: Insulin DETEMIR 100 UNIT/ML X5UNITS SQ SCH (20:28)
[2020-08-05 06:15] LABS: Basophils % 0.2 %; Eosinophils % 0.1 %; Hematocrit 31.8 % (35.3-44.9); Hemoglobin 9.4 g/dL (11.5-15.4); Immature Granulocytes % 0.2 % (0-4); Lymphocytes # 3.8 K/mcL (0.6-4.6); Lymphocytes % 29.4 %; Mean Corpuscular HGB Conc 29.6 g/dL (31.6-35.5); Mean Corpuscular Hemoglobin 22.9 pg (28.0-33.3); Mean Corpuscular Volume 77.4 fL (83.0-100.0); Mean Platelet Volume 9.4 fL (9.4-12.4); Monocytes # 0.8 K/mcL (0.0-1.3); Monocytes % 6.2 %; Platelet Count 476 K/mcL (140-400); Red Blood Count 4.11 M/mcL (3.82-4.97); Red Cell Distribution Width 16.9 % (11.5-14.5); Segmented Neutrophils % 63.9 %; White Blood Count 12.9 K/mcL (4.3-11.1)
[2020-08-05 06:17] LABS: Neutrophils # 8.2 K/mcL (1.6-8.9)
[2020-08-05 06:36] LABS: Anisocytosis 1+ (Not Present); Hypochromasia Present (Not Present); Microcytosis Present (Not Present)
[2020-08-05 06:38] LABS: BUN/Creatinine Ratio 11 (6-26); Blood Urea Nitrogen 8 mg/dL (8-23); Carbon Dioxide 28 mEq/L (23-29); Chloride 103 mEq/L (98-107); Glucose 98 mg/dL (70-105); Osmolality,Calculated 284 (280-300); Potassium 3.1 mEq/L (3.5-5.1); Sodium 138 mEq/L (136-145); eGFR For African Americans > 60 (> 60); eGFR For Non-African Americans > 60 (> 60)
[2020-08-05 06:39] LABS: % Iron Saturation 4 % (15-50); Iron 16 mcg/dL (50-170); Magnesium 1.4 mg/dL (1.6-2.6); Phosphorous 3.2 mg/dL (2.7-4.5); Transferrin 292 mg/dL (203-362)
[2020-08-05 06:54] LABS: Ferritin < 8 ng/mL (10-120)
[2020-08-05 07:12] LABS: Folate > 22.3 ng/mL (3.0-16.0); Vitamin B12 892 pg/mL (250-1100)
[2020-08-05] MEDS: Insulin LISPRO 300 UNITS/3 ML VIAL SQ SCH ×4 (08:35→20:00)
[2020-08-05] MEDS: Insulin DETEMIR 100 UNIT/ML X5UNITS SQ SCH ×2 (08:42→19:59)
[2020-08-05] MEDS: Iron Sucrose Complex 250 MG in 0.9 % Sodium Chloride 250 ML IVPB SCH (08:42)
[2020-08-05] MEDS ORDERED: Acetaminophen 325 MG TABLET PO PRN (11:14)
[2020-08-06 06:23] LABS: Hemoglobin 9.3 g/dL (11.5-15.4); Mean Corpuscular HGB Conc 29.1 g/dL (31.6-35.5); Mean Corpuscular Hemoglobin 22.9 pg (28.0-33.3); Mean Corpuscular Volume 78.6 fL (83.0-100.0); Mean Platelet Volume 9.6 fL (9.4-12.4); Platelet Count 480 K/mcL (140-400); Red Blood Count 4.07 M/mcL (3.82-4.97); Red Cell Distribution Width 17.5 % (11.5-14.5); White Blood Count 11.1 K/mcL (4.3-11.1)
[2020-08-06 06:40] LABS: BUN/Creatinine Ratio 10 (6-26); Blood Urea Nitrogen 8 mg/dL (8-23); Carbon Dioxide 26 mEq/L (23-29); Chloride 104 mEq/L (98-107); Glucose 77 mg/dL (70-105); Magnesium 1.5 mg/dL (1.6-2.6); Osmolality,Calculated 283 (280-300); Potassium 3.5 mEq/L (3.5-5.1); Sodium 138 mEq/L (136-145); eGFR For African Americans > 60 (> 60); eGFR For Non-African Americans > 60 (> 60)
[2020-08-06 08:03] VITALS: BP 177/72
[2020-08-06] MEDS: Insulin LISPRO 300 UNITS/3 ML VIAL SQ SCH (08:39)
[2020-08-06] MEDS: Iron Sucrose Complex 250 MG in 0.9 % Sodium Chloride 250 ML IVPB SCH (08:53)
[2020-08-06] MEDS: Insulin DETEMIR 100 UNIT/ML X5UNITS SQ SCH (08:53)
== END 2020-08-06 11:23 | disposition home or self-care (01) | DRG 392 ==
LOC: EMEROOARM 14:05 → 3BNU 14:05
PROVIDERS: ADMIT Internal Medicine; ATTEND Internal Medicine

== ENCOUNTER 2020-09-25 16:45 | Inpatient (IN) ==
[2020-09-25] MEDS ORDERED: Naloxone 0.4 MG/ML INJ IVP PRN (17:21)
[2020-09-25] MEDS ORDERED: Ondansetron ODT 4 MG TAB.RAPDIS SL PRN (17:21)
[2020-09-25] MEDS ORDERED: Acetaminophen 325 MG TABLET PO PRN (17:21)
[2020-09-25 18:38] LABS: Basophils # 0.1 K/mcL (0.0-0.2); Basophils % 0.4 %; Hematocrit 37.6 % (35.3-44.9); Hemoglobin 11.6 g/dL (11.5-15.4); Immature Granulocytes % 0.3 % (0-4); Lymphocytes # 4.1 K/mcL (0.6-4.6); Lymphocytes % 28.6 %; Mean Corpuscular HGB Conc 30.9 g/dL (31.6-35.5); Mean Corpuscular Hemoglobin 25.4 pg (28.0-33.3); Mean Corpuscular Volume 82.3 fL (83.0-100.0); Mean Platelet Volume 9.4 fL (9.4-12.4); Monocytes # 0.9 K/mcL (0.0-1.3); Monocytes % 6.3 %; Neutrophils # 9.3 K/mcL (1.6-8.9); Platelet Count 467 K/mcL (140-400); Red Blood Count 4.57 M/mcL (3.82-4.97); Red Cell Distribution Width 19.8 % (11.5-14.5); Segmented Neutrophils % 64.4 %; White Blood Count 14.4 K/mcL (4.3-11.1)
[2020-09-25 18:47] LABS: BUN/Creatinine Ratio 10 (6-26); Blood Urea Nitrogen 9 mg/dL (8-23); Calcium 9.2 mg/dL (8.6-10.3); Carbon Dioxide 22 mEq/L (23-29); Chloride 101 mEq/L (98-107); Glucose 250 mg/dL (70-105); Magnesium 1.2 mg/dL (1.6-2.6); Osmolality,Calculated 283 (280-300); Phosphorous 3.1 mg/dL (2.7-4.5); Potassium 4.1 mEq/L (3.5-5.1); Sodium 133 mEq/L (136-145); eGFR For African Americans > 60 (> 60); eGFR For Non-African Americans > 60 (> 60)
[2020-09-25] MEDS: *HR* HYDROcodone/Acet 10/325 mg TABLET PO PRN (19:47)
[2020-09-25 20:12] LABS: Platelet Estimate Increased (Normal); Reactive Lymphocytes Present (Not Present)
[2020-09-26] MEDS ORDERED: D5% in 0.45% NACL 1,000 ML IVC SCH ×2 (00:01→12:29)
[2020-09-26] MEDS: Insulin LISPRO 300 UNITS/3 ML VIAL SUBQ SCH ×2 (07:32→13:30)
[2020-09-26] MEDS: *HR* HYDROcodone/Acet 10/325 mg TABLET PO PRN ×2 (08:21→18:52)
[2020-09-26 09:35] LABS: Adenovirus Not Detected (Not Detect); Coronavirus 229E Not Detected (Not Detect); Coronavirus HKU1 Not Detected (Not Detect); Coronavirus NL63 Not Detected (Not Detect); Coronavirus OC43 Not Detected (Not Detect); Human Metapneumovirus Not Detected (Not Detect); Human Rhinovirus/Enterovirus Not Detected (Not Detect); Influenza A Subtype 2009 H1 Not Detected (Not Detect); SARS-CoV-2 Not Detected (Not Detect)
[2020-09-26 09:36] LABS: Bordetella Pertussis Not Detected (Not Detect); Chlamydophila pneumoniae Not Detected (Not Detect); Influenza B Not Detected (Not Detect); Mycoplasma pneumoniae Not Detected (Not Detect); Parainfluenza Virus 1 Not Detected (Not Detect); Parainfluenza Virus 2 Not Detected (Not Detect); Parainfluenza Virus 3 Not Detected (Not Detect); Parainfluenza Virus 4 Not Detected (Not Detect); Respiratory Syncytial Virus Not Detected (Not Detect)
[2020-09-26] MEDS ORDERED: *HR* FentaNYL (PF) 100 MCG/2 ML VIAL ONE (09:39)
[2020-09-26] MEDS ORDERED: *HR* Propofol 200 MG/20 ML VIAL IVP ONE (09:39)
[2020-09-26] MEDS ORDERED: Ondansetron 4 MG/2 ML VIAL ONE (09:40)
[2020-09-26] MEDS ORDERED: Lidocaine HCL 4 ML Topical Solution (Laryng-O-Jet Kit Sterile Pak) TP ONE (09:40)
[2020-09-26] MEDS ORDERED: *HR* Succinylcholine 200 MG/10 ML VIAL IVP ONE (09:40)
[2020-09-26] MEDS ORDERED: Lidocaine -MPF 2% 2 ML VIAL ONE (09:40)
[2020-09-26] MEDS ORDERED: Vancomycin 1,000 MG VIAL ONE (09:46)
[2020-09-26] MEDS ORDERED: Clindamycin 900 MG/50 ML 900 MG/50 ML IV.SOLN IVPB ONE ×2 (10:24→10:47)
[2020-09-26] MEDS ORDERED: Insulin Regular, Human 100 UNIT/ML ONE (11:09)
[2020-09-26] MEDS ORDERED: Ondansetron 4 MG/2 ML VIAL IVP PRN (11:10)
[2020-09-26] MEDS ORDERED: *HR* Metoprolol 5 MG/5 ML VIAL IVP PRN (11:10)
[2020-09-26] MEDS ORDERED: Ketorolac 15 MG/ML VIAL IVP PRN (11:10)
[2020-09-26] MEDS ORDERED: Albuterol 2.5 MG/3 ML NEBULIZER IH PRN (11:10)
[2020-09-26] MEDS ORDERED: *HR* OxyCODONE Immed Rel 5 MG TABLET PO PRN (11:10)
[2020-09-26] MEDS ORDERED: *HR* HYDROmorphone PF 0.5 MG/0.5 ML SYRINGE IVP PRN (11:10)
[2020-09-26] MEDS ORDERED: Promethazine 6.25 MG in Water for inj. (sterile) 20 ML IVPB PRN (11:10)
[2020-09-26] MEDS ORDERED: Acetaminophen IV 1,000 MG/100 ML BAG IVPB ONE (11:11)
[2020-09-26] MEDS ORDERED: Insulin Regular, Human 100 UNIT/ML SUBQ ONE (11:13)
[2020-09-26] MEDS ORDERED: *HR* HYDROMORPHONE 2 MG/ML VIAL ONE (11:36)
[2020-09-26] MEDS ORDERED: *HR* HYDROcodone/Acet 10/325 mg TABLET PO PRN (12:23)
[2020-09-26] MEDS ORDERED: Vancomycin 1,750 MG/517.5 ML IV.SOLN IVPB ONE (12:26)
[2020-09-26] MEDS ORDERED: *HR* Heparin 5,000 UNIT/ML VIAL SQ SCH (16:00)
[2020-09-26] MEDS ORDERED: Famotidine 20 MG TABLET PO SCH (16:30)
[2020-09-26] MEDS ORDERED: Naloxone 0.4 MG/ML INJ IVP PRN (17:22)
[2020-09-26] MEDS ORDERED: Ondansetron 4 MG/2 ML VIAL IVP ONE (17:23)
[2020-09-26] MEDS ORDERED: Ondansetron ODT 4 MG TAB.RAPDIS SL PRN (17:33)
[2020-09-26] MEDS ORDERED: Insulin LISPRO 300 UNITS/3 ML VIAL SUBQ ONE (17:35)
[2020-09-26] MEDS ORDERED: Clindamycin 900 MG/50 ML 900 MG/50 ML IV.SOLN IVPB SCH (18:00)
[2020-09-26] MEDS: Clindamycin 900 MG/50 ML 900 MG/50 ML IV.SOLN IVPB SCH ×2 (18:20→23:44)
[2020-09-26] MEDS: *HR* Heparin 5,000 UNIT/ML VIAL SQ SCH (20:43)
[2020-09-26] MEDS ORDERED: rOPINIRole 1 MG TABLET PO SCH ×2 (21:00)
[2020-09-27] MEDS: *HR* Heparin 5,000 UNIT/ML VIAL SQ SCH (05:40)
[2020-09-27] MEDS ORDERED: Insulin LISPRO 300 UNITS/3 ML VIAL SUBQ SCH ×2 (07:30→11:30)
[2020-09-27] MEDS: Clindamycin 900 MG/50 ML 900 MG/50 ML IV.SOLN IVPB SCH (07:50)
[2020-09-27] MEDS ORDERED: BuPROPion XL (24 HR) 150 MG TABLET PO SCH ×2 (09:00)
[2020-09-27] MEDS ORDERED: Furosemide 40 MG TABLET PO SCH ×2 (09:00)
[2020-09-27] MEDS ORDERED: Aspirin 81 MG TAB.CHEW PO SCH (09:00)
[2020-09-27] MEDS ORDERED: FLUoxetine 20 MG CAPSULE PO SCH ×2 (09:00)
[2020-09-27] MEDS ORDERED: Famotidine 20 MG TABLET PO SCH (09:00)
[2020-09-27] MEDS ORDERED: Aspirin Enteric Coated 81 MG Tablet PO SCH (09:00)
[2020-09-27] MEDS ORDERED: Dextrose Gel 15 GM/37.5 ML TUBE PO PRN ×4 (09:57→10:00)
[2020-09-27] MEDS ORDERED: *HR* Dextrose 50 % in Water (Vial) 50 ML VIAL IVP PRN ×2 (09:57→10:00)
[2020-09-27] MEDS ORDERED: D5% in Water 1,000 ML IVC PRN ×2 (09:57→10:00)
[2020-09-27] MEDS ORDERED: Gabapentin 300 MG CAPSULE PO SCH (10:00)
[2020-09-27 10:50] LABS: Basophils % 0.3 %; Eosinophils % 0.1 %; Hematocrit 35.3 % (35.3-44.9); Hemoglobin 10.9 g/dL (11.5-15.4); Immature Granulocytes % 0.5 % (0-4); Lymphocytes # 3.2 K/mcL (0.6-4.6); Lymphocytes % 21.4 %; Mean Corpuscular HGB Conc 30.9 g/dL (31.6-35.5); Mean Corpuscular Hemoglobin 25.2 pg (28.0-33.3); Mean Corpuscular Volume 81.5 fL (83.0-100.0); Mean Platelet Volume 9.6 fL (9.4-12.4); Monocytes # 0.9 K/mcL (0.0-1.3); Monocytes % 6.4 %; Neutrophils # 10.6 K/mcL (1.6-8.9); Platelet Count 426 K/mcL (140-400); Red Blood Count 4.33 M/mcL (3.82-4.97); Red Cell Distribution Width 19.2 % (11.5-14.5); Segmented Neutrophils % 71.3 %; White Blood Count 14.8 K/mcL (4.3-11.1)
[2020-09-27 11:01] LABS: BUN/Creatinine Ratio 21 (6-26); Blood Urea Nitrogen 17 mg/dL (8-23); Calcium 8.9 mg/dL (8.6-10.3); Carbon Dioxide 23 mEq/L (23-29); Chloride 102 mEq/L (98-107); Glucose 219 mg/dL (70-105); Osmolality,Calculated 286 (280-300); Sodium 134 mEq/L (136-145); eGFR For African Americans > 60 (> 60); eGFR For Non-African Americans > 60 (> 60)
[2020-09-27 11:04] VITALS: BP 161/77
[2020-09-27] MEDS: Insulin LISPRO 300 UNITS/3 ML VIAL SUBQ SCH (11:10)
[2020-09-27 11:33] LABS: Estimated Average Glucose 240 mg/dl
[2020-09-27] MEDS: *HR* HYDROcodone/Acet 10/325 mg TABLET PO PRN (14:03)
[2020-09-27] MEDS ORDERED: Insulin DETEMIR 100 UNIT/ML X5UNITS SUBQ SCH (21:00)
== END 2020-09-27 16:21 | disposition home health service (06) | DRG 571 ==
LOC: 3ANU
PROVIDERS: ADMIT Surgery; ATTEND Surgery

== ENCOUNTER 2020-10-08 17:11 | Inpatient (IN) ==
[2020-10-08] MEDS ORDERED: Isovue-370 500 ML BOTTLE IVP ONE (18:06)
[2020-10-08 18:43] LABS: Basophils # 0.1 K/mcL (0.0-0.2); Basophils % 0.5 %; Eosinophils % 0.2 %; Hematocrit 33.8 % (35.3-44.9); Hemoglobin 10.2 g/dL (11.5-15.4); Immature Granulocytes % 0.3 % (0-4); Lymphocytes % 22.9 %; Mean Corpuscular HGB Conc 30.2 g/dL (31.6-35.5); Mean Corpuscular Hemoglobin 25.4 pg (28.0-33.3); Mean Corpuscular Volume 84.1 fL (83.0-100.0); Mean Platelet Volume 9.3 fL (9.4-12.4); Monocytes # 0.7 K/mcL (0.0-1.3); Monocytes % 5.3 %; Neutrophils # 9.2 K/mcL (1.6-8.9); Platelet Count 451 K/mcL (140-400); Red Blood Count 4.02 M/mcL (3.82-4.97); Red Cell Distribution Width 17.9 % (11.5-14.5); Segmented Neutrophils % 70.8 %; White Blood Count 12.9 K/mcL (4.3-11.1)
[2020-10-08 19:03] LABS: BUN/Creatinine Ratio 19 (6-26); Blood Urea Nitrogen 15 mg/dL (8-23); Carbon Dioxide 23 mEq/L (23-29); Chloride 102 mEq/L (98-107); Glucose 174 mg/dL (70-105); Osmolality,Calculated 285 (280-300); Potassium 4.2 mEq/L (3.5-5.1); Sodium 135 mEq/L (136-145); eGFR For African Americans > 60 (> 60); eGFR For Non-African Americans > 60 (> 60)
[2020-10-08 19:49] LABS: Troponin I < 0.03 ng/mL (< 0.04)
[2020-10-08 20:37] LABS: Bacteria,Urine Few per hpf (None-Few); Bilirubin,Urine Moderate (Negative); Blood,Urine Negative (Negative); Clarity,Urine Turbid (Clear); Color,Urine Light-Yellow (Yellow); Glucose,Urine (UA) >=1000 mg/dL (Normal); Hyaline Casts,Urine Few per lpf (None Seen); Ketones,Urine Negative (Negative); Leukocyte Esterase,Urine Large (Negative); Mucus,Urine Few per lpf (None-Few); Nitrite,Urine Positive (Negative); Protein,Urine Trace mg/dL (Neg-Trace); RBC,Urine 0-3 per hpf (0-3); Specific Gravity,Urine 1.014 (1.010-1.025); Squamous Epithelial Cell,Urine Few per hpf (None-Few); Urobilinogen,Urine Normal (Normal); WBC,Urine 30-50 per hpf (0-3)
[2020-10-08] MEDS ORDERED: 0.9 % Sodium Chloride 1,000 ML IVC ONE (20:53)
[2020-10-08] MEDS ORDERED: Cefepime HCl 1,000 MG in Water for inj. (sterile) 10 ML IVP ONE (21:20)
[2020-10-08] MEDS ORDERED: Dextrose Gel 15 GM/37.5 ML TUBE PO PRN ×2 (22:35)
[2020-10-08] MEDS ORDERED: D5% in Water 1,000 ML IVC PRN (22:35)
[2020-10-08] MEDS ORDERED: *HR* Dextrose 50 % in Water (Vial) 50 ML VIAL IVP PRN (22:35)
[2020-10-08] MEDS ORDERED: Ondansetron 4 MG/2 ML VIAL IVP PRN (22:38)
[2020-10-08] MEDS ORDERED: Acetaminophen 325 MG TABLET PO PRN (22:38)
[2020-10-08] MEDS ORDERED: Naloxone 0.4 MG/ML INJ IVP PRN (22:38)
[2020-10-08] MEDS ORDERED: Melatonin 3 MG TABLET PO ONE (22:38)
[2020-10-08] MEDS: Insulin LISPRO 300 UNITS/3 ML VIAL SUBQ SCH (23:50)
[2020-10-09 04:20] LABS: Hematocrit 33.4 % (35.3-44.9); Mean Corpuscular HGB Conc 29.9 g/dL (31.6-35.5); Mean Corpuscular Hemoglobin 25.3 pg (28.0-33.3); Mean Corpuscular Volume 84.6 fL (83.0-100.0); Mean Platelet Volume 9.5 fL (9.4-12.4); Platelet Count 427 K/mcL (140-400); Red Blood Count 3.95 M/mcL (3.82-4.97); White Blood Count 11.8 K/mcL (4.3-11.1)
[2020-10-09 04:30] LABS: INR 1.2; Prothrombin Time 13.8 Seconds (9.4-12.1)
[2020-10-09 04:32] LABS: Activated Partial Thrombo Time 29.8 Seconds (26.0-36.0)
[2020-10-09 04:41] LABS: BUN/Creatinine Ratio 16 (6-26); Blood Urea Nitrogen 14 mg/dL (8-23); Calcium 8.8 mg/dL (8.6-10.3); Carbon Dioxide 25 mEq/L (23-29); Chloride 104 mEq/L (98-107); Chol/HDL Ratio 5.5 (0-4.9); Cholesterol 160 mg/dL (< 200); Glucose 241 mg/dL (70-105); HDL Cholesterol 29 mg/dL (40-59); LDL Cholesterol,Calculated 87 mg/dL (< 100); Magnesium 1.4 mg/dL (1.6-2.6); Osmolality,Calculated 292 (280-300); Sodium 137 mEq/L (136-145); Triglycerides 222 mg/dL (< 150); eGFR For African Americans > 60 (> 60); eGFR For Non-African Americans > 60 (> 60)
[2020-10-09 04:44] LABS: % Iron Saturation 7 % (15-50); Iron 20 mcg/dL (50-170); Transferrin 212 mg/dL (203-362)
[2020-10-09 04:57] LABS: Ferritin 31 ng/mL (10-120)
[2020-10-09 05:03] LABS: Folate 18.4 ng/mL (3.0-16.0)
[2020-10-09 06:02] LABS: Estimated Average Glucose 260 mg/dl; Hemoglobin A1C 10.7 %
[2020-10-09] MEDS: Lactobacillus 1 EACH CAP.SPRINK PO SCH (08:41)
[2020-10-09] MEDS: Aspirin Enteric Coated 81 MG Tablet PO SCH (08:41)
[2020-10-09] MEDS: Famotidine 20 MG TABLET PO SCH ×2 (08:41→20:07)
[2020-10-09] MEDS: Cefepime HCl 1,000 MG in 0.9 % Sodium Chloride Mini Bag 100 ML IVPB SCH ×2 (08:42→20:06)
[2020-10-09] MEDS: Insulin LISPRO 300 UNITS/3 ML VIAL SUBQ SCH ×4 (08:42→21:51)
[2020-10-09] MEDS: *HR* HYDROcodone/Acet 10/325 mg TABLET PO PRN ×2 (11:37→20:26)
[2020-10-09] MEDS ORDERED: Ipratropium/Albuterol Neb 3 ML IH PRN (13:59)
[2020-10-09] MEDS ORDERED: Melatonin 3 MG TABLET PO PRN (23:25)
[2020-10-10 04:46] LABS: Hematocrit 31.6 % (35.3-44.9); Hemoglobin 9.6 g/dL (11.5-15.4); Mean Corpuscular HGB Conc 30.4 g/dL (31.6-35.5); Mean Corpuscular Hemoglobin 25.3 pg (28.0-33.3); Mean Corpuscular Volume 83.4 fL (83.0-100.0); Mean Platelet Volume 9.2 fL (9.4-12.4); Platelet Count 411 K/mcL (140-400); Red Blood Count 3.79 M/mcL (3.82-4.97); Red Cell Distribution Width 18.2 % (11.5-14.5); White Blood Count 12.6 K/mcL (4.3-11.1)
[2020-10-10 05:04] LABS: BUN/Creatinine Ratio 19 (6-26); Blood Urea Nitrogen 15 mg/dL (8-23); Carbon Dioxide 24 mEq/L (23-29); Chloride 103 mEq/L (98-107); Glucose 205 mg/dL (70-105); Osmolality,Calculated 287 (280-300); Sodium 135 mEq/L (136-145); eGFR For African Americans > 60 (> 60); eGFR For Non-African Americans > 60 (> 60)
[2020-10-10 05:12] LABS: Anisocytosis 1+ (Not Present); Lymphocytes # 2.8 K/mcL (0.6-4.6); Monocytes # 0.3 K/mcL (0.0-1.3); Neutrophils # 8.6 K/mcL (1.6-8.9); Reactive Lymphocytes Present (Not Present)
[2020-10-10] MEDS: *HR* HYDROcodone/Acet 10/325 mg TABLET PO PRN ×2 (05:40→11:43)
[2020-10-10] MEDS: Cefepime HCl 1,000 MG in 0.9 % Sodium Chloride Mini Bag 100 ML IVPB SCH (08:54)
[2020-10-10] MEDS: Aspirin Enteric Coated 81 MG Tablet PO SCH (08:54)
[2020-10-10] MEDS: Lactobacillus 1 EACH CAP.SPRINK PO SCH (08:54)
[2020-10-10] MEDS: Famotidine 20 MG TABLET PO SCH (08:54)
[2020-10-10] MEDS: Insulin LISPRO 300 UNITS/3 ML VIAL SUBQ SCH ×2 (08:55→12:18)
[2020-10-10 10:47] VITALS: BP 149/78
== END 2020-10-10 15:23 | disposition home health service (06) | DRG 689 ==
LOC: 3NENU 17:11 → EMEROOARM 17:11 → 3NENU 22:40 → SUATTDRO 10-09 15:32
PROVIDERS: ADMIT Internal Medicine; ATTEND Family Medicine

== ENCOUNTER 2021-08-18 14:58 | Inpatient (IN) ==
[2021-08-18 15:59] LABS: Basophils # 0.1 K/mcL (0.0-0.2); Basophils % 0.5 %; Hematocrit 33.2 % (35.3-44.9); Immature Granulocytes % 0.2 % (0-4); Lymphocytes # 2.1 K/mcL (0.6-4.6); Lymphocytes % 15.9 %; Mean Corpuscular HGB Conc 30.1 g/dL (31.6-35.5); Mean Corpuscular Hemoglobin 23.4 pg (28.0-33.3); Mean Corpuscular Volume 77.8 fL (83.0-100.0); Mean Platelet Volume 9.5 fL (9.4-12.4); Monocytes # 0.8 K/mcL (0.0-1.3); Monocytes % 6.5 %; Platelet Count 430 K/mcL (140-400); Red Blood Count 4.27 M/mcL (3.82-4.97); Red Cell Distribution Width 18.7 % (11.5-14.5); Segmented Neutrophils % 76.9 %
[2021-08-18 16:07] LABS: VBG HCO3 26 mEq/L (21-27); VBG PCO2 48 mmHg (41-51); VBG PH 7.34 pH Units (7.32-7.42); VBG PO2 41 mmHg (25-50)
[2021-08-18 16:21] LABS: Alanine Aminotransferase 11 Units/L (7-52); Albumin 3.7 g/dL (3.5-5.7); Albumin/Globulin Ratio 1.2 (1.1-2.2); Alkaline Phosphatase 85 Units/L (34-104); Aspartate Amino Transferase 12 Units/L (13-39); BUN/Creatinine Ratio 13 (6-26); Bilirubin,Total 0.3 mg/dL (0.3-1.0); Blood Urea Nitrogen 11 mg/dL (8-23); Calcium 9.1 mg/dL (8.6-10.3); Carbon Dioxide 26 mEq/L (23-29); Chloride 97 mEq/L (98-107); Globulin 3.2 g/dL (2.4-3.5); Glucose 389 mg/dL (70-105); Osmolality,Calculated 288 (280-300); Potassium 4.7 mEq/L (3.5-5.1); Sodium 131 mEq/L (136-145); Total Protein 6.9 g/dL (6.4-8.9); Troponin I < 0.03 ng/mL (< 0.04); eGFR For African Americans > 60 (> 60); eGFR For Non-African Americans > 60 (> 60)
[2021-08-18 16:33] LABS: Bacteria,Urine Few per hpf (None-Few); Bilirubin,Urine Negative (Negative); Blood,Urine Negative (Negative); Clarity,Urine Clear (Clear); Color,Urine Light-Yellow (Yellow); Glucose,Urine (UA) >=1000 mg/dL (Normal); Ketones,Urine Negative (Negative); Leukocyte Esterase,Urine Small (Negative); Nitrite,Urine Positive (Negative); Protein,Urine Negative (Neg-Trace); RBC,Urine 0-3 per hpf (0-3); Specific Gravity,Urine 1.014 (1.010-1.025); Urobilinogen,Urine Normal (Normal)
[2021-08-18] MEDS ORDERED: cefTRIAXone 1,000 MG in 0.9 % Sodium Chloride Mini Bag 100 ML IVPB ONE (16:48)
[2021-08-18] MEDS ORDERED: Insulin Human Regular 8 UNIT in 0.9 % Sodium Chloride 10 ML IV ONE (17:11)
[2021-08-18] MEDS ORDERED: Naloxone 0.4 MG/ML INJ IVP PRN (18:01)
[2021-08-18] MEDS ORDERED: Acetaminophen 325 MG TABLET PO PRN (18:01)
[2021-08-18] MEDS ORDERED: Ondansetron 4 MG/2 ML VIAL IVP PRN (18:01)
[2021-08-18] MEDS ORDERED: Perflutren Lipid Microsphere 1.3 ML in 0.9 % Sodium Chloride 8.7 ML IVP PRN (18:05)
[2021-08-18] MEDS ORDERED: Dextrose Gel 15 GM/37.5 ML TUBE PO PRN ×2 (18:36)
[2021-08-18] MEDS ORDERED: D5% in Water 1,000 ML IVC PRN (18:36)
[2021-08-18] MEDS ORDERED: *HR* Dextrose 50 % in Water (Syg) 50 ML SYRINGE IVP PRN (18:36)
[2021-08-18] MEDS: *HR* Heparin 5,000 UNIT/ML VIAL SQ SCH (21:10)
[2021-08-18] MEDS: 0.9 % Sodium Chloride 1,000 ML IVC SCH (21:10)
[2021-08-18] MEDS: Insulin DETEMIR 100 UNIT/ML X5UNITS SUBQ SCH (21:11)
[2021-08-18 21:17] LABS: INR 1.1; Prothrombin Time 12.6 Seconds (9.4-12.1)
[2021-08-18 21:20] LABS: Activated Partial Thrombo Time 24.5 Seconds (26.0-36.0)
[2021-08-18] MEDS: Insulin LISPRO 300 UNITS/3 ML VIAL SUBQ SCH (23:59)
[2021-08-19 01:23] LABS: Basophils # 0.1 K/mcL (0.0-0.2); Basophils % 0.5 %; Eosinophils # 0.1 K/mcL (0.0-0.6); Eosinophils % 0.4 %; Hematocrit 33.3 % (35.3-44.9); Immature Granulocytes % 0.3 % (0-4); Lymphocytes % 35.4 %; Mean Corpuscular Hemoglobin 23.3 pg (28.0-33.3); Mean Corpuscular Volume 77.4 fL (83.0-100.0); Mean Platelet Volume 9.6 fL (9.4-12.4); Monocytes # 0.8 K/mcL (0.0-1.3); Monocytes % 6.6 %; Neutrophils # 6.7 K/mcL (1.6-8.9); Platelet Count 445 K/mcL (140-400); Red Cell Distribution Width 18.9 % (11.5-14.5); Segmented Neutrophils % 56.8 %; White Blood Count 11.7 K/mcL (4.3-11.1)
[2021-08-19 01:25] LABS: Lymphocytes # 4.1 K/mcL (0.6-4.6)
[2021-08-19 01:44] LABS: BUN/Creatinine Ratio 12 (6-26); Blood Urea Nitrogen 9 mg/dL (8-23); Calcium 8.9 mg/dL (8.6-10.3); Carbon Dioxide 24 mEq/L (23-29); Chloride 102 mEq/L (98-107); Estimated Average Glucose 255 mg/dl; Glucose 135 mg/dL (70-105); Hemoglobin A1C 10.5 %; Osmolality,Calculated 289 (280-300); Potassium 3.7 mEq/L (3.5-5.1); Sodium 139 mEq/L (136-145); eGFR For African Americans > 60 (> 60); eGFR For Non-African Americans > 60 (> 60)
[2021-08-19 01:47] LABS: Cholesterol 146 mg/dL (< 200); HDL Cholesterol 49 mg/dL (40-59); Triglycerides 138 mg/dL (< 150); Troponin I < 0.03 ng/mL (< 0.04)
[2021-08-19 01:48] LABS: LDL Cholesterol,Calculated 69 mg/dL (< 100)
[2021-08-19 02:04] LABS: Anisocytosis 1+ (Not Present); Platelet Estimate Normal (Normal); Reactive Lymphocytes Present (Not Present); Toxic Granulation Present (Not Present)
[2021-08-19] MEDS: *HR* Heparin 5,000 UNIT/ML VIAL SQ SCH ×3 (05:54→22:18)
[2021-08-19] MEDS: Insulin LISPRO 300 UNITS/3 ML VIAL SUBQ SCH ×3 (06:00→17:52)
[2021-08-19] MEDS: 0.9 % Sodium Chloride 1,000 ML IVC SCH (15:11)
[2021-08-19] MEDS ORDERED: *HR* LORazepam 2 MG/ML VIAL IVP ONE (15:30)
[2021-08-19] MEDS: Aspirin 81 MG TAB.CHEW PO SCH (16:44)
[2021-08-19] MEDS: cefTRIAXone 1,000 MG in Water for inj. (sterile) 10 ML IVP SCH (16:44)
[2021-08-19] MEDS: Insulin DETEMIR 100 UNIT/ML X5UNITS SUBQ SCH ×2 (22:03→22:18)
[2021-08-19] MEDS: rOPINIRole 1 MG TABLET PO SCH (22:19)
[2021-08-19] MEDS: *HR* HYDROcodone/Acet 10/325 mg TABLET PO PRN (22:19)
[2021-08-19] MEDS: Gabapentin 300 MG CAPSULE PO SCH (22:21)
[2021-08-19] MEDS: *HR* SitaGLIPtin 25 MG TABLET PO SCH (22:21)
[2021-08-20] MEDS: *HR* Heparin 5,000 UNIT/ML VIAL SQ SCH ×3 (05:40→20:19)
[2021-08-20 06:14] LABS: Basophils # 0.1 K/mcL (0.0-0.2); Basophils % 0.7 %; Eosinophils # 0.1 K/mcL (0.0-0.6); Eosinophils % 0.7 %; Hemoglobin 9.8 g/dL (11.5-15.4); Immature Granulocytes % 0.3 % (0-4); Lymphocytes # 4.3 K/mcL (0.6-4.6); Lymphocytes % 38.2 %; Mean Corpuscular HGB Conc 29.7 g/dL (31.6-35.5); Mean Corpuscular Hemoglobin 23.3 pg (28.0-33.3); Mean Corpuscular Volume 78.6 fL (83.0-100.0); Mean Platelet Volume 9.4 fL (9.4-12.4); Monocytes # 0.7 K/mcL (0.0-1.3); Monocytes % 6.3 %; Neutrophils # 6.1 K/mcL (1.6-8.9); Platelet Count 465 K/mcL (140-400); Red Cell Distribution Width 18.8 % (11.5-14.5); Segmented Neutrophils % 53.8 %; White Blood Count 11.3 K/mcL (4.3-11.1)
[2021-08-20 06:19] LABS: Anisocytosis 1+ (Not Present)
[2021-08-20 06:27] LABS: BUN/Creatinine Ratio 13 (6-26); Blood Urea Nitrogen 11 mg/dL (8-23); Calcium 9.3 mg/dL (8.6-10.3); Carbon Dioxide 23 mEq/L (23-29); Chloride 103 mEq/L (98-107); Glucose 139 mg/dL (70-105); Osmolality,Calculated 284 (280-300); Potassium 3.6 mEq/L (3.5-5.1); Sodium 136 mEq/L (136-145); eGFR For African Americans > 60 (> 60); eGFR For Non-African Americans > 60 (> 60)
[2021-08-20] MEDS: Insulin LISPRO 300 UNITS/3 ML VIAL SUBQ SCH ×3 (07:51→17:19)
[2021-08-20] MEDS: BuPROPion XL (24 HR) 150 MG TABLET PO SCH (08:53)
[2021-08-20] MEDS: Multivit/Ca/Min/Fe/FA 1 TAB TABLET PO SCH (08:53)
[2021-08-20] MEDS: Furosemide 40 MG TABLET PO SCH (08:53)
[2021-08-20] MEDS: Aspirin Enteric Coated 81 MG Tablet PO SCH (08:53)
[2021-08-20] MEDS: Famotidine 20 MG TABLET PO SCH (08:53)
[2021-08-20] MEDS: FLUoxetine 20 MG CAPSULE PO SCH (08:53)
[2021-08-20] MEDS: Gabapentin 300 MG CAPSULE PO SCH ×3 (08:53→19:54)
[2021-08-20] MEDS: Aspirin 81 MG TAB.CHEW PO SCH (08:55)
[2021-08-20] MEDS: *HR* SitaGLIPtin 25 MG TABLET PO SCH (08:55)
[2021-08-20] MEDS: cefTRIAXone 1,000 MG in Water for inj. (sterile) 10 ML IVP SCH (17:20)
[2021-08-20] MEDS: rOPINIRole 1 MG TABLET PO SCH (19:55)
[2021-08-20] MEDS: Insulin DETEMIR 100 UNIT/ML X5UNITS SUBQ SCH (20:01)
[2021-08-21 01:35] LABS: Basophils # 0.1 K/mcL (0.0-0.2); Basophils % 0.7 %; Eosinophils # 0.1 K/mcL (0.0-0.6); Eosinophils % 0.6 %; Hematocrit 34.2 % (35.3-44.9); Immature Granulocytes % 0.3 % (0-4); Lymphocytes # 3.7 K/mcL (0.6-4.6); Lymphocytes % 30.9 %; Mean Corpuscular HGB Conc 29.2 g/dL (31.6-35.5); Mean Corpuscular Hemoglobin 23.5 pg (28.0-33.3); Mean Corpuscular Volume 80.5 fL (83.0-100.0); Mean Platelet Volume 9.3 fL (9.4-12.4); Monocytes # 0.7 K/mcL (0.0-1.3); Monocytes % 5.6 %; Neutrophils # 7.4 K/mcL (1.6-8.9); Platelet Count 441 K/mcL (140-400); Red Blood Count 4.25 M/mcL (3.82-4.97); Red Cell Distribution Width 18.8 % (11.5-14.5); Segmented Neutrophils % 61.9 %
[2021-08-21 01:48] LABS: Calcium 9.4 mg/dL (8.6-10.3); Potassium 3.9 mEq/L (3.5-5.1)
[2021-08-21] MEDS: *HR* Heparin 5,000 UNIT/ML VIAL SQ SCH ×3 (05:26→20:55)
[2021-08-21] MEDS: Insulin LISPRO 300 UNITS/3 ML VIAL SUBQ SCH ×3 (07:52→18:06)
[2021-08-21] MEDS: BuPROPion XL (24 HR) 150 MG TABLET PO SCH (07:53)
[2021-08-21] MEDS: Multivit/Ca/Min/Fe/FA 1 TAB TABLET PO SCH (07:54)
[2021-08-21] MEDS: Famotidine 20 MG TABLET PO SCH (07:54)
[2021-08-21] MEDS: Gabapentin 300 MG CAPSULE PO SCH ×3 (07:54→21:01)
[2021-08-21] MEDS: Furosemide 40 MG TABLET PO SCH (07:54)
[2021-08-21] MEDS: Aspirin Enteric Coated 81 MG Tablet PO SCH (07:54)
[2021-08-21] MEDS: *HR* SitaGLIPtin 25 MG TABLET PO SCH (07:55)
[2021-08-21] MEDS: FLUoxetine 20 MG CAPSULE PO SCH (07:55)
[2021-08-21] MEDS: cefTRIAXone 1,000 MG in Water for inj. (sterile) 10 ML IVP SCH (18:06)
[2021-08-21] MEDS: rOPINIRole 1 MG TABLET PO SCH (21:00)
[2021-08-21] MEDS: Insulin DETEMIR 100 UNIT/ML X5UNITS SUBQ SCH (21:01)
[2021-08-22] MEDS: *HR* Heparin 5,000 UNIT/ML VIAL SQ SCH ×3 (05:03→22:01)
[2021-08-22] MEDS: Multivit/Ca/Min/Fe/FA 1 TAB TABLET PO SCH (08:04)
[2021-08-22] MEDS: Gabapentin 300 MG CAPSULE PO SCH ×3 (08:04→22:00)
[2021-08-22] MEDS: BuPROPion XL (24 HR) 150 MG TABLET PO SCH (08:04)
[2021-08-22] MEDS: Aspirin Enteric Coated 81 MG Tablet PO SCH (08:04)
[2021-08-22] MEDS: Famotidine 20 MG TABLET PO SCH (08:05)
[2021-08-22] MEDS: FLUoxetine 20 MG CAPSULE PO SCH (08:05)
[2021-08-22] MEDS: Insulin LISPRO 300 UNITS/3 ML VIAL SUBQ SCH ×3 (08:05→16:14)
[2021-08-22] MEDS: Furosemide 40 MG TABLET PO SCH (08:05)
[2021-08-22] MEDS: *HR* SitaGLIPtin 25 MG TABLET PO SCH (08:05)
[2021-08-22] MEDS: cefTRIAXone 1,000 MG in Water for inj. (sterile) 10 ML IVP SCH (16:13)
[2021-08-22] MEDS: Insulin DETEMIR 100 UNIT/ML X5UNITS SUBQ SCH (21:45)
[2021-08-22] MEDS: *HR* HYDROcodone/Acet 10/325 mg TABLET PO PRN (22:00)
[2021-08-22] MEDS: rOPINIRole 1 MG TABLET PO SCH (22:01)
[2021-08-23] MEDS: *HR* Heparin 5,000 UNIT/ML VIAL SQ SCH (06:17)
[2021-08-23 07:17] VITALS: BP 137/72; PULSE 74; TEMP 97.6; O2SAT 93
[2021-08-23] MEDS: Insulin LISPRO 300 UNITS/3 ML VIAL SUBQ SCH (07:51)
[2021-08-23] MEDS: FLUoxetine 20 MG CAPSULE PO SCH (07:57)
[2021-08-23] MEDS: Famotidine 20 MG TABLET PO SCH (07:57)
[2021-08-23] MEDS: Multivit/Ca/Min/Fe/FA 1 TAB TABLET PO SCH (07:57)
[2021-08-23] MEDS: Gabapentin 300 MG CAPSULE PO SCH (07:57)
[2021-08-23] MEDS: Furosemide 40 MG TABLET PO SCH (07:57)
[2021-08-23] MEDS: BuPROPion XL (24 HR) 150 MG TABLET PO SCH (07:57)
[2021-08-23] MEDS: Aspirin Enteric Coated 81 MG Tablet PO SCH (07:57)
[2021-08-23] MEDS: *HR* SitaGLIPtin 25 MG TABLET PO SCH (07:58)
[2021-08-23 09:51] LABS: Influenza A PCR Negative (Negative); Influenza B PCR Negative (Negative); Resp. Syncytial Virus PCR Negative (Negative)
[2021-08-23 09:59] LABS: SARS-CoV-2 by PCR (In House) Negative (Negative)
== END 2021-08-23 14:34 | DRG 65 ==
LOC: 3BNU 14:58 → EMEROOARM 14:58 → SUATTDRO 17:54 → 3BNU 19:58
PROVIDERS: ADMIT Student in an Organized Health Care Education/Training Program; ATTEND Internal Medicine

== ENCOUNTER 2021-12-25 12:59 | Inpatient (IN) ==
[2021-12-25] MEDS ORDERED: Isovue-370 500 ML BOTTLE IVP ONE (13:26)
[2021-12-25 15:13] LABS: Basophils # 0.1 K/mcL (0.0-0.2); Basophils % 0.6 %; Eosinophils % 0.2 %; Hematocrit 33.9 % (35.3-44.9); Hemoglobin 10.6 g/dL (11.5-15.4); Immature Granulocytes % 0.4 % (0-4); Lymphocytes # 2.7 K/mcL (0.6-4.6); Lymphocytes % 23.5 %; Mean Corpuscular HGB Conc 31.3 g/dL (31.6-35.5); Mean Corpuscular Hemoglobin 25.2 pg (28.0-33.3); Mean Corpuscular Volume 80.7 fL (83.0-100.0); Mean Platelet Volume 9.4 fL (9.4-12.4); Monocytes # 0.8 K/mcL (0.0-1.3); Monocytes % 6.7 %; Neutrophils # 7.8 K/mcL (1.6-8.9); Platelet Count 465 K/mcL (140-400); Red Cell Distribution Width 17.4 % (11.5-14.5); Segmented Neutrophils % 68.6 %; White Blood Count 11.3 K/mcL (4.3-11.1)
[2021-12-25 15:22] LABS: INR 1.1; Prothrombin Time 12.7 Seconds (9.4-12.1)
[2021-12-25 15:25] LABS: Activated Partial Thrombo Time 34.3 Seconds (26.0-36.0)
[2021-12-25 15:29] LABS: Amphetamine Screen,Urine Negative ng/mL (Cutoff=1000); Barbiturate Screen,Urine Negative ng/mL (Cutoff=200); Benzodiazepines Screen,Urine Negative ng/mL (Cutoff=200); Cannabinoid Screen,Urine Negative ng/mL (Cutoff = 50); Cocaine Screen,Urine Negative ng/mL (Cutoff= 300); Opiate Screen,Urine Negative ng/mL (Cutoff=300); Phencyclidine Screen,Urine Negative ng/mL (Cutoff=25)
[2021-12-25 15:32] LABS: Alanine Aminotransferase 8 Units/L (7-52); Albumin 3.5 g/dL (3.5-5.7); Albumin/Globulin Ratio 1.1 (1.1-2.2); Alkaline Phosphatase 63 Units/L (34-104); Aspartate Amino Transferase 15 Units/L (13-39); BUN/Creatinine Ratio 19 (6-26); Bilirubin,Indirect 0.3 mg/dL (0.0-1.0); Bilirubin,Total 0.3 mg/dL (0.3-1.0); Blood Urea Nitrogen 18 mg/dL (8-23); Calcium 9.5 mg/dL (8.6-10.3); Carbon Dioxide 29 mEq/L (23-29); Chloride 102 mEq/L (98-107); Ethanol < 10 mg/dL (Less than 10); Globulin 3.1 g/dL (2.4-3.5); Glucose 99 mg/dL (70-105); Osmolality,Calculated 284 (280-300); Potassium 4.3 mEq/L (3.5-5.1); Sodium 136 mEq/L (136-145); Total Protein 6.6 g/dL (6.4-8.9); Troponin I < 0.03 ng/mL (< 0.04); eGFR For African Americans > 60 (> 60); eGFR For Non-African Americans 59 (> 60)
[2021-12-25 15:47] LABS: Bilirubin,Urine Negative (Negative); Blood,Urine Negative (Negative); Clarity,Urine Turbid (Clear); Color,Urine Light-Yellow (Yellow); Glucose,Urine (UA) Normal (Normal); Ketones,Urine Negative (Negative); Leukocyte Esterase,Urine Negative (Negative); Nitrite,Urine Negative (Negative); Protein,Urine Trace mg/dL (Neg-Trace); RBC,Urine 0-3 per hpf (0-3); Specific Gravity,Urine 1.015 (1.010-1.025); Urobilinogen,Urine Normal (Normal); WBC,Urine 0-3 per hpf (0-3)
[2021-12-25] MEDS ORDERED: Naloxone 0.4 MG/ML INJ IVP PRN (16:34)
[2021-12-25] MEDS ORDERED: Ondansetron 4 MG/2 ML VIAL IVP PRN (16:34)
[2021-12-25] MEDS ORDERED: D5% in Water 1,000 ML IVC PRN (17:32)
[2021-12-25] MEDS ORDERED: Dextrose 4 GM Chewable Tablets PO PRN ×2 (17:32)
[2021-12-25] MEDS ORDERED: *HR* Dextrose 50 % in Water (Syg) 50 ML SYRINGE IVP PRN (17:32)
[2021-12-25] MEDS: Insulin LISPRO 300 UNITS/3 ML VIAL SUBQ SCH (17:55)
[2021-12-25] MEDS: Famotidine 20 MG TABLET PO SCH (17:55)
[2021-12-25] MEDS: rOPINIRole 1 MG TABLET PO SCH (20:39)
[2021-12-25] MEDS: carvediloL 6.25 MG TABLET PO SCH (20:39)
[2021-12-25] MEDS: Nystatin POWDER 30 GM BOTTLE TP SCH (20:44)
[2021-12-26] MEDS: Insulin LISPRO 300 UNITS/3 ML VIAL SUBQ SCH ×4 (00:34→18:05)
[2021-12-26 01:50] LABS: Basophils # 0.1 K/mcL (0.0-0.2); Basophils % 0.6 %; Eosinophils # 0.2 K/mcL (0.0-0.6); Eosinophils % 1.8 %; Hematocrit 32.8 % (35.3-44.9); Hemoglobin 10.1 g/dL (11.5-15.4); Immature Granulocytes % 0.3 % (0-4); Lymphocytes # 4.6 K/mcL (0.6-4.6); Mean Corpuscular HGB Conc 30.8 g/dL (31.6-35.5); Mean Corpuscular Hemoglobin 24.6 pg (28.0-33.3); Mean Corpuscular Volume 79.8 fL (83.0-100.0); Mean Platelet Volume 9.5 fL (9.4-12.4); Monocytes # 0.9 K/mcL (0.0-1.3); Neutrophils # 6.3 K/mcL (1.6-8.9); Platelet Count 452 K/mcL (140-400); Red Blood Count 4.11 M/mcL (3.82-4.97); Red Cell Distribution Width 17.5 % (11.5-14.5); White Blood Count 12.1 K/mcL (4.3-11.1)
[2021-12-26 02:14] LABS: BUN/Creatinine Ratio 17 (6-26); Blood Urea Nitrogen 16 mg/dL (8-23); Calcium 9.5 mg/dL (8.6-10.3); Carbon Dioxide 28 mEq/L (23-29); Chloride 104 mEq/L (98-107); Chol/HDL Ratio 2.7 (0-4.9); Cholesterol 129 mg/dL (< 200); Glucose 87 mg/dL (70-105); HDL Cholesterol 48 mg/dL (40-59); LDL Cholesterol,Calculated 52 mg/dL (< 100); Magnesium 1.4 mg/dL (1.6-2.6); Osmolality,Calculated 287 (280-300); Potassium 4.6 mEq/L (3.5-5.1); Sodium 138 mEq/L (136-145); Triglycerides 145 mg/dL (< 150); eGFR For African Americans > 60 (> 60); eGFR For Non-African Americans 59 (> 60)
[2021-12-26] MEDS ORDERED: *HR* Metoprolol 5 MG/5 ML VIAL IVP ONE (03:28)
[2021-12-26 03:54] LABS: Estimated Average Glucose 183 mg/dl
[2021-12-26] MEDS: Famotidine 20 MG TABLET PO SCH ×2 (05:47→16:37)
[2021-12-26] MEDS: Aspirin Enteric Coated 81 MG Tablet PO SCH (08:02)
[2021-12-26] MEDS: Vitamin B Complex/Vit C/Vit E 1 EACH TABLET PO SCH (08:02)
[2021-12-26] MEDS: BuPROPion XL (24 HR) 150 MG TABLET PO SCH (08:02)
[2021-12-26] MEDS: Multivit/Ca/Min/Fe/FA 1 TAB TABLET PO SCH (08:02)
[2021-12-26] MEDS: Gabapentin 300 MG CAPSULE PO SCH ×3 (08:03→20:18)
[2021-12-26] MEDS: FLUoxetine 20 MG CAPSULE PO SCH (08:03)
[2021-12-26] MEDS ORDERED: Acetaminophen 325 MG TABLET PO PRN (08:03)
[2021-12-26] MEDS: Nystatin POWDER 30 GM BOTTLE TP SCH ×3 (08:04→20:19)
[2021-12-26] MEDS: carvediloL 6.25 MG TABLET PO SCH ×2 (08:04→16:37)
[2021-12-26] MEDS: rOPINIRole 1 MG TABLET PO SCH (20:18)
[2021-12-27] MEDS: Insulin LISPRO 300 UNITS/3 ML VIAL SUBQ SCH ×4 (00:16→17:30)
[2021-12-27] MEDS: Famotidine 20 MG TABLET PO SCH ×2 (04:52→17:29)
[2021-12-27 05:35] LABS: Basophils # 0.1 K/mcL (0.0-0.2); Basophils % 0.6 %; Eosinophils % 0.2 %; Hematocrit 35.6 % (35.3-44.9); Hemoglobin 10.9 g/dL (11.5-15.4); Immature Granulocytes % 0.2 % (0-4); Lymphocytes # 3.9 K/mcL (0.6-4.6); Lymphocytes % 34.9 %; Mean Corpuscular HGB Conc 30.6 g/dL (31.6-35.5); Mean Corpuscular Hemoglobin 25.3 pg (28.0-33.3); Mean Corpuscular Volume 82.6 fL (83.0-100.0); Mean Platelet Volume 9.6 fL (9.4-12.4); Monocytes # 0.8 K/mcL (0.0-1.3); Monocytes % 6.9 %; Neutrophils # 6.5 K/mcL (1.6-8.9); Platelet Count 485 K/mcL (140-400); Red Blood Count 4.31 M/mcL (3.82-4.97); Red Cell Distribution Width 17.9 % (11.5-14.5); Segmented Neutrophils % 57.2 %; White Blood Count 11.3 K/mcL (4.3-11.1)
[2021-12-27 05:57] LABS: BUN/Creatinine Ratio 16 (6-26); Blood Urea Nitrogen 15 mg/dL (8-23); Calcium 9.6 mg/dL (8.6-10.3); Carbon Dioxide 27 mEq/L (23-29); Chloride 101 mEq/L (98-107); Glucose 152 mg/dL (70-105); Magnesium 1.5 mg/dL (1.6-2.6); Osmolality,Calculated 288 (280-300); Sodium 137 mEq/L (136-145); eGFR For African Americans > 60 (> 60); eGFR For Non-African Americans > 60 (> 60)
[2021-12-27] MEDS: FLUoxetine 20 MG CAPSULE PO SCH (08:43)
[2021-12-27] MEDS: Gabapentin 300 MG CAPSULE PO SCH ×3 (08:43→20:05)
[2021-12-27] MEDS: BuPROPion XL (24 HR) 150 MG TABLET PO SCH (08:44)
[2021-12-27] MEDS: Aspirin Enteric Coated 81 MG Tablet PO SCH (08:44)
[2021-12-27] MEDS: Vitamin B Complex/Vit C/Vit E 1 EACH TABLET PO SCH (08:44)
[2021-12-27] MEDS: carvediloL 6.25 MG TABLET PO SCH ×2 (08:44→17:29)
[2021-12-27] MEDS: Multivit/Ca/Min/Fe/FA 1 TAB TABLET PO SCH (08:44)
[2021-12-27] MEDS: Nystatin POWDER 30 GM BOTTLE TP SCH ×3 (08:54→20:06)
[2021-12-27] MEDS: Magnesium Oxide 400 MG TABLET PO SCH (20:05)
[2021-12-27] MEDS: rOPINIRole 1 MG TABLET PO SCH (20:05)
[2021-12-27 21:26] LABS: ABG Base Excess 3 mEq/L (-2 to 3); ABG HCO3 27 mEq/L (21-27); ABG Oxygen Saturation 95 % (95-98); ABG PCO2 40 mmHg (35-45); ABG PH 7.44 pH Units (7.32-7.45); ABG PO2 72 mmHg (85-104); ABG TCO2 28 mEq/L (20-26)
[2021-12-28 02:22] LABS: Basophils # 0.1 K/mcL (0.0-0.2); Basophils % 0.5 %; Hematocrit 34.9 % (35.3-44.9); Immature Granulocytes % 0.3 % (0-4); Lymphocytes # 3.9 K/mcL (0.6-4.6); Lymphocytes % 30.1 %; Mean Corpuscular HGB Conc 31.5 g/dL (31.6-35.5); Mean Corpuscular Hemoglobin 25.3 pg (28.0-33.3); Mean Corpuscular Volume 80.2 fL (83.0-100.0); Mean Platelet Volume 9.5 fL (9.4-12.4); Monocytes # 0.8 K/mcL (0.0-1.3); Monocytes % 5.8 %; Neutrophils # 8.2 K/mcL (1.6-8.9); Platelet Count 472 K/mcL (140-400); Red Blood Count 4.35 M/mcL (3.82-4.97); Red Cell Distribution Width 17.4 % (11.5-14.5); Segmented Neutrophils % 63.3 %
[2021-12-28 02:32] LABS: BUN/Creatinine Ratio 20 (6-26); Blood Urea Nitrogen 20 mg/dL (8-23); Calcium 9.5 mg/dL (8.6-10.3); Carbon Dioxide 27 mEq/L (23-29); Chloride 101 mEq/L (98-107); Glucose 163 mg/dL (70-105); Magnesium 1.7 mg/dL (1.6-2.6); Osmolality,Calculated 286 (280-300); Potassium 4.1 mEq/L (3.5-5.1); Sodium 135 mEq/L (136-145); eGFR For African Americans > 60 (> 60); eGFR For Non-African Americans 54 (> 60)
[2021-12-28] MEDS: Famotidine 20 MG TABLET PO SCH ×2 (05:42→17:15)
[2021-12-28] MEDS: Insulin LISPRO 300 UNITS/3 ML VIAL SUBQ SCH ×4 (08:28→17:16)
[2021-12-28] MEDS: Gabapentin 300 MG CAPSULE PO SCH ×3 (08:59→20:51)
[2021-12-28] MEDS: BuPROPion XL (24 HR) 150 MG TABLET PO SCH (08:59)
[2021-12-28] MEDS: Aspirin Enteric Coated 81 MG Tablet PO SCH (08:59)
[2021-12-28] MEDS: carvediloL 6.25 MG TABLET PO SCH ×2 (08:59→17:15)
[2021-12-28] MEDS: FLUoxetine 20 MG CAPSULE PO SCH (08:59)
[2021-12-28] MEDS: Multivit/Ca/Min/Fe/FA 1 TAB TABLET PO SCH (09:00)
[2021-12-28] MEDS: Magnesium Oxide 400 MG TABLET PO SCH ×2 (09:00→20:51)
[2021-12-28] MEDS: Nystatin POWDER 30 GM BOTTLE TP SCH ×3 (09:00→20:51)
[2021-12-28] MEDS: Vitamin B Complex/Vit C/Vit E 1 EACH TABLET PO SCH (09:00)
[2021-12-28] MEDS: rOPINIRole 1 MG TABLET PO SCH (20:51)
[2021-12-29] MEDS: Insulin LISPRO 300 UNITS/3 ML VIAL SUBQ SCH ×4 (00:24→17:14)
[2021-12-29] MEDS: Famotidine 20 MG TABLET PO SCH ×2 (05:34→17:13)
[2021-12-29] MEDS: FLUoxetine 20 MG CAPSULE PO SCH (08:36)
[2021-12-29] MEDS: Nystatin POWDER 30 GM BOTTLE TP SCH ×3 (08:36→22:04)
[2021-12-29] MEDS: Multivit/Ca/Min/Fe/FA 1 TAB TABLET PO SCH (08:37)
[2021-12-29] MEDS: carvediloL 6.25 MG TABLET PO SCH ×2 (08:37→17:13)
[2021-12-29] MEDS: Aspirin Enteric Coated 81 MG Tablet PO SCH (08:37)
[2021-12-29] MEDS: Gabapentin 300 MG CAPSULE PO SCH ×3 (08:37→22:00)
[2021-12-29] MEDS: Magnesium Oxide 400 MG TABLET PO SCH ×2 (08:37→22:00)
[2021-12-29] MEDS: Vitamin B Complex/Vit C/Vit E 1 EACH TABLET PO SCH (08:37)
[2021-12-29] MEDS: BuPROPion XL (24 HR) 150 MG TABLET PO SCH (08:37)
[2021-12-29] MEDS: rOPINIRole 1 MG TABLET PO SCH (22:00)
[2021-12-30] MEDS: Insulin LISPRO 300 UNITS/3 ML VIAL SUBQ SCH ×4 (05:10→17:41)
[2021-12-30] MEDS: Famotidine 20 MG TABLET PO SCH ×2 (05:19→17:19)
[2021-12-30] MEDS: Aspirin Enteric Coated 81 MG Tablet PO SCH (10:04)
[2021-12-30] MEDS: carvediloL 6.25 MG TABLET PO SCH ×2 (10:06→15:20)
[2021-12-30] MEDS: Gabapentin 300 MG CAPSULE PO SCH ×3 (10:09→20:33)
[2021-12-30] MEDS: Magnesium Oxide 400 MG TABLET PO SCH ×2 (10:09→20:33)
[2021-12-30] MEDS: Nystatin POWDER 30 GM BOTTLE TP SCH ×3 (10:11→20:34)
[2021-12-30] MEDS: FLUoxetine 20 MG CAPSULE PO SCH (10:14)
[2021-12-30] MEDS: Vitamin B Complex/Vit C/Vit E 1 EACH TABLET PO SCH (10:15)
[2021-12-30] MEDS: BuPROPion XL (24 HR) 150 MG TABLET PO SCH (10:15)
[2021-12-30] MEDS: Multivit/Ca/Min/Fe/FA 1 TAB TABLET PO SCH (10:15)
[2021-12-30 10:18] LABS: Adenovirus Not Detected (Not Detect); Bordetella Pertussis Not Detected (Not Detect); Chlamydophila pneumoniae Not Detected (Not Detect); Coronavirus 229E Not Detected (Not Detect); Coronavirus HKU1 Not Detected (Not Detect); Coronavirus NL63 Not Detected (Not Detect); Coronavirus OC43 Not Detected (Not Detect); Human Metapneumovirus Not Detected (Not Detect); Human Rhinovirus/Enterovirus Not Detected (Not Detect); Influenza A Subtype 2009 H1 Not Detected (Not Detect); Influenza B Not Detected (Not Detect); Mycoplasma pneumoniae Not Detected (Not Detect); Parainfluenza Virus 1 Not Detected (Not Detect); Parainfluenza Virus 2 Not Detected (Not Detect); Parainfluenza Virus 3 Not Detected (Not Detect); Parainfluenza Virus 4 Not Detected (Not Detect); Respiratory Syncytial Virus Not Detected (Not Detect); SARS-CoV-2 Not Detected (Not Detect)
[2021-12-30] MEDS: rOPINIRole 1 MG TABLET PO SCH (20:33)
[2021-12-31] MEDS: Insulin LISPRO 300 UNITS/3 ML VIAL SUBQ SCH ×3 (01:13→12:08)
[2021-12-31] MEDS: Famotidine 20 MG TABLET PO SCH (06:25)
[2021-12-31] MEDS: carvediloL 6.25 MG TABLET PO SCH (09:20)
[2021-12-31] MEDS: Multivit/Ca/Min/Fe/FA 1 TAB TABLET PO SCH (09:20)
[2021-12-31] MEDS: Magnesium Oxide 400 MG TABLET PO SCH (09:21)
[2021-12-31] MEDS: Aspirin Enteric Coated 81 MG Tablet PO SCH (09:22)
[2021-12-31] MEDS: Vitamin B Complex/Vit C/Vit E 1 EACH TABLET PO SCH (09:22)
[2021-12-31] MEDS: BuPROPion XL (24 HR) 150 MG TABLET PO SCH (09:22)
[2021-12-31] MEDS: Gabapentin 300 MG CAPSULE PO SCH (09:23)
[2021-12-31] MEDS: FLUoxetine 20 MG CAPSULE PO SCH (09:24)
[2021-12-31] MEDS: Nystatin POWDER 30 GM BOTTLE TP SCH (09:25)
[2021-12-31 09:30] VITALS: O2SAT 93
[2021-12-31 11:20] VITALS: BP 165/80; PULSE 71; TEMP 98.2
== END 2021-12-31 15:51 | DRG 92 ==
LOC: EMEROOARM 12:59 → 3BNU 12:59 → SUATTDRO 17:10 → 3BNU 17:49
PROVIDERS: ADMIT Pharmacist; ATTEND Pharmacist

== ENCOUNTER 2022-03-23 10:00 | Inpatient (IN) ==
[2022-03-23 10:48] LABS: Basophils # 0.1 K/mcL (0.0-0.2); Basophils % 0.3 %; Eosinophils % 0.1 %; Hematocrit 34.2 % (35.3-44.9); Hemoglobin 10.6 g/dL (11.5-15.4); Immature Granulocytes % 0.3 % (0-4); Lymphocytes # 2.7 K/mcL (0.6-4.6); Lymphocytes % 18.2 %; Mean Corpuscular Hemoglobin 27.6 pg (28.0-33.3); Mean Corpuscular Volume 89.1 fL (83.0-100.0); Mean Platelet Volume 9.6 fL (9.4-12.4); Monocytes # 0.7 K/mcL (0.0-1.3); Monocytes % 4.6 %; Neutrophils # 11.4 K/mcL (1.6-8.9); Platelet Count 369 K/mcL (140-400); Red Blood Count 3.84 M/mcL (3.82-4.97); Red Cell Distribution Width 16.1 % (11.5-14.5); Segmented Neutrophils % 76.5 %; White Blood Count 14.9 K/mcL (4.3-11.1)
[2022-03-23 10:55] LABS: Bacteria,Urine Few per hpf (None-Few); Bilirubin,Urine Negative (Negative); Blood,Urine Negative (Negative); Clarity,Urine Turbid (Clear); Color,Urine Yellow (Yellow); Glucose,Urine (UA) Normal (Normal); Ketones,Urine Trace mg/dL (Negative); Leukocyte Esterase,Urine Large (Negative); Mucus,Urine Few per lpf (None-Few); Nitrite,Urine Positive (Negative); PH,Urine 7.5 pH Units (5.0-8.0); Protein,Urine Trace mg/dL (Neg-Trace); Specific Gravity,Urine 1.015 (1.010-1.025); Squamous Epithelial Cell,Urine Moderate per hpf (None-Few); Urobilinogen,Urine Normal (Normal); WBC,Urine 30-50 per hpf (0-3)
[2022-03-23] MEDS ORDERED: cefTRIAXone 1,000 MG in 0.9 % Sodium Chloride Mini Bag 100 ML IVPB ONE (11:04)
[2022-03-23] MEDS ORDERED: 0.9 % Sodium Chloride 1,000 ML IV ONE (11:04)
[2022-03-23 11:13] LABS: Amphetamine Screen,Urine Negative ng/mL (Cutoff=1000); Barbiturate Screen,Urine Negative ng/mL (Cutoff=200); Benzodiazepines Screen,Urine Negative ng/mL (Cutoff=200); Cannabinoid Screen,Urine Negative ng/mL (Cutoff = 50); Cocaine Screen,Urine Negative ng/mL (Cutoff= 300); Opiate Screen,Urine Positive ng/mL (Cutoff=300); Phencyclidine Screen,Urine Negative ng/mL (Cutoff=25)
[2022-03-23 11:22] LABS: Influenza A PCR Negative (Negative); Influenza B PCR Negative (Negative); Resp. Syncytial Virus PCR Negative (Negative)
[2022-03-23 11:57] LABS: SARS-CoV-2 by PCR (In House) Negative (Negative)
[2022-03-23 12:04] LABS: INR 1.1; Prothrombin Time 12.8 Seconds (9.4-12.1)
[2022-03-23 12:06] LABS: Activated Partial Thrombo Time 34.4 Seconds (26.0-36.0)
[2022-03-23 12:20] LABS: Alanine Aminotransferase 9 Units/L (7-52); Albumin 3.6 g/dL (3.5-5.7); Albumin/Globulin Ratio 1.1 (1.1-2.2); Alkaline Phosphatase 70 Units/L (34-104); Aspartate Amino Transferase 13 Units/L (13-39); BUN/Creatinine Ratio 15 (6-26); Bilirubin,Direct 0.1 mg/dL (0.0-0.2); Bilirubin,Indirect 0.3 mg/dL (0.0-1.0); Bilirubin,Total 0.4 mg/dL (0.3-1.0); Blood Urea Nitrogen 13 mg/dL (8-23); Carbon Dioxide 27 mEq/L (23-29); Chloride 104 mEq/L (98-107); Creatine Kinase 112 Units/L (30-223); Globulin 3.2 g/dL (2.4-3.5); Glucose 126 mg/dL (70-105); Osmolality,Calculated 288 (280-300); Potassium 3.6 mEq/L (3.5-5.1); Sodium 138 mEq/L (136-145); Total Protein 6.8 g/dL (6.4-8.9); Troponin I < 0.03 ng/mL (< 0.04); eGFR For African Americans > 60 (> 60); eGFR For Non-African Americans > 60 (> 60)
[2022-03-23 12:33] LABS: Thyroid Stimulating Hormone 1.222 mcIU/mL (0.340-5.600)
[2022-03-23] MEDS ORDERED: Ondansetron 4 MG/2 ML VIAL IVP PRN (13:27)
[2022-03-23] MEDS ORDERED: Naloxone 0.4 MG/ML INJ IVP PRN (13:27)
[2022-03-23] MEDS ORDERED: D5% in Water 1,000 ML IVC PRN (13:29)
[2022-03-23] MEDS ORDERED: Dextrose Gel 15 GM/37.5 ML TUBE PO PRN ×2 (13:29)
[2022-03-23] MEDS ORDERED: *HR* Dextrose 50 % in Water (Syg) 50 ML SYRINGE IVP PRN (13:29)
[2022-03-23] MEDS ORDERED: Ipratropium/Albuterol Neb 3 ML IH PRN (13:37)
[2022-03-23] MEDS: 0.9 % Sodium Chloride 1,000 ML IVC SCH (14:53)
[2022-03-23] MEDS: Insulin LISPRO 300 UNITS/3 ML VIAL SUBQ SCH ×2 (16:29→21:22)
[2022-03-23] MEDS: *HR* Heparin 5,000 UNIT/ML VIAL SQ SCH (18:06)
[2022-03-23 18:54] LABS: Estimated Average Glucose 134 mg/dl; Hemoglobin A1C 6.3 %
[2022-03-24] MEDS ORDERED: *HR* Labetalol 20 MG/4 ML SYRINGE IVP ONE ×2 (03:42→22:51)
[2022-03-24] MEDS: 0.9 % Sodium Chloride 1,000 ML IVC SCH (03:51)
[2022-03-24] MEDS: *HR* Heparin 5,000 UNIT/ML VIAL SQ SCH ×2 (05:40→16:55)
[2022-03-24 06:38] LABS: Basophils # 0.1 K/mcL (0.0-0.2); Basophils % 0.4 %; Eosinophils % 0.2 %; Hematocrit 30.9 % (35.3-44.9); Hemoglobin 9.6 g/dL (11.5-15.4); Immature Granulocytes % 0.3 % (0-4); Lymphocytes # 3.4 K/mcL (0.6-4.6); Lymphocytes % 28.6 %; Mean Corpuscular HGB Conc 31.1 g/dL (31.6-35.5); Mean Corpuscular Hemoglobin 27.1 pg (28.0-33.3); Mean Corpuscular Volume 87.3 fL (83.0-100.0); Mean Platelet Volume 9.6 fL (9.4-12.4); Monocytes # 0.9 K/mcL (0.0-1.3); Monocytes % 7.1 %; Neutrophils # 7.6 K/mcL (1.6-8.9); Platelet Count 366 K/mcL (140-400); Red Blood Count 3.54 M/mcL (3.82-4.97); Red Cell Distribution Width 15.9 % (11.5-14.5); Segmented Neutrophils % 63.4 %
[2022-03-24 07:00] LABS: BUN/Creatinine Ratio 16 (6-26); Blood Urea Nitrogen 12 mg/dL (8-23); Calcium 8.4 mg/dL (8.6-10.3); Carbon Dioxide 23 mEq/L (23-29); Chloride 109 mEq/L (98-107); Glucose 112 mg/dL (70-105); Osmolality,Calculated 289 (280-300); Potassium 3.7 mEq/L (3.5-5.1); Sodium 139 mEq/L (136-145); eGFR For African Americans > 60 (> 60); eGFR For Non-African Americans > 60 (> 60)
[2022-03-24] MEDS: Insulin LISPRO 300 UNITS/3 ML VIAL SUBQ SCH ×4 (07:37→19:55)
[2022-03-24] MEDS: Aspirin 81 MG TAB.CHEW PO SCH (08:49)
[2022-03-24] MEDS: cefTRIAXone 1,000 MG in Water for inj. (sterile) 10 ML IVP SCH (10:00)
[2022-03-24] MEDS: Acetaminophen 325 MG TABLET PO PRN ×2 (10:00→18:33)
[2022-03-25] MEDS: *HR* Heparin 5,000 UNIT/ML VIAL SQ SCH ×2 (05:36→17:20)
[2022-03-25] MEDS: Insulin LISPRO 300 UNITS/3 ML VIAL SUBQ SCH ×4 (07:39→20:43)
[2022-03-25] MEDS: Aspirin 81 MG TAB.CHEW PO SCH (07:40)
[2022-03-25] MEDS: Acetaminophen 325 MG TABLET PO PRN (07:46)
[2022-03-25] MEDS ORDERED: Famotidine 20 MG TABLET PO PRN (07:53)
[2022-03-25] MEDS: BuPROPion XL (24 HR) 150 MG TABLET PO SCH (08:58)
[2022-03-25] MEDS: FLUoxetine 20 MG CAPSULE PO SCH (08:58)
[2022-03-25] MEDS: Gabapentin 300 MG CAPSULE PO SCH ×3 (08:59→20:16)
[2022-03-25 09:09] LABS: Basophils % 0.3 %; Hematocrit 33.1 % (35.3-44.9); Hemoglobin 10.4 g/dL (11.5-15.4); Immature Granulocytes % 0.4 % (0-4); Lymphocytes # 1.5 K/mcL (0.6-4.6); Lymphocytes % 10.1 %; Mean Corpuscular HGB Conc 31.4 g/dL (31.6-35.5); Mean Corpuscular Hemoglobin 27.2 pg (28.0-33.3); Mean Corpuscular Volume 86.6 fL (83.0-100.0); Mean Platelet Volume 9.4 fL (9.4-12.4); Monocytes # 0.8 K/mcL (0.0-1.3); Monocytes % 5.4 %; Neutrophils # 12.2 K/mcL (1.6-8.9); Platelet Count 406 K/mcL (140-400); Red Blood Count 3.82 M/mcL (3.82-4.97); Red Cell Distribution Width 15.9 % (11.5-14.5); Segmented Neutrophils % 83.8 %; White Blood Count 14.6 K/mcL (4.3-11.1)
[2022-03-25 09:44] LABS: % Iron Saturation 5 % (15-50); BUN/Creatinine Ratio 18 (6-26); Blood Urea Nitrogen 13 mg/dL (8-23); Calcium 9.1 mg/dL (8.6-10.3); Carbon Dioxide 23 mEq/L (23-29); Chloride 104 mEq/L (98-107); Glucose 154 mg/dL (70-105); Iron 19 mcg/dL (50-170); Magnesium 1.5 mg/dL (1.6-2.6); Osmolality,Calculated 285 (280-300); Phosphorous 3.2 mg/dL (2.7-4.5); Potassium 3.8 mEq/L (3.5-5.1); Sodium 136 mEq/L (136-145); Transferrin 256 mg/dL (203-362); eGFR For African Americans > 60 (> 60); eGFR For Non-African Americans > 60 (> 60)
[2022-03-25 09:47] LABS: Ferritin 14 ng/mL (10-120)
[2022-03-25 11:08] LABS: Folate > 22.3 ng/mL (3.0-16.0); Vitamin B12 529 pg/mL (250-1100)
[2022-03-25] MEDS: cefTRIAXone 1,000 MG in Water for inj. (sterile) 10 ML IVP SCH (11:28)
[2022-03-25] MEDS ORDERED: Iron Sucrose Complex 400 MG in 0.9 % Sodium Chloride 250 ML IVPB ONE (11:42)
[2022-03-25] MEDS: Piperacillin/Tazobactam 3.375 GM in 0.9 % Sodium Chloride Mini Bag 100 ML IVPB SCH ×2 (12:13→20:15)
[2022-03-25] MEDS: lisinopriL 10 MG TABLET PO SCH (12:17)
[2022-03-25] MEDS ORDERED: *HR* LORazepam 2 MG/ML VIAL IVP ONE (13:31)
[2022-03-25] MEDS: rOPINIRole 1 MG TABLET PO SCH (20:16)
[2022-03-25] MEDS: *HR* HYDROcodone/Acet 10/325 mg TABLET PO PRN (20:36)
[2022-03-26] MEDS: Piperacillin/Tazobactam 3.375 GM in 0.9 % Sodium Chloride Mini Bag 100 ML IVPB SCH ×3 (04:28→20:22)
[2022-03-26] MEDS: *HR* Heparin 5,000 UNIT/ML VIAL SQ SCH ×2 (05:51→17:57)
[2022-03-26 07:40] LABS: BUN/Creatinine Ratio 15 (6-26); Blood Urea Nitrogen 12 mg/dL (8-23); Calcium 8.4 mg/dL (8.6-10.3); Carbon Dioxide 24 mEq/L (23-29); Chloride 101 mEq/L (98-107); Glucose 131 mg/dL (70-105); Magnesium 1.6 mg/dL (1.6-2.6); Osmolality,Calculated 280 (280-300); Phosphorous 3.6 mg/dL (2.7-4.5); Potassium 3.8 mEq/L (3.5-5.1); Sodium 134 mEq/L (136-145); eGFR For African Americans > 60 (> 60); eGFR For Non-African Americans > 60 (> 60)
[2022-03-26 07:44] LABS: Basophils % 0.4 %; Eosinophils % 0.1 %; Hematocrit 30.3 % (35.3-44.9); Hemoglobin 9.5 g/dL (11.5-15.4); Immature Granulocytes % 0.3 % (0-4); Lymphocytes # 1.1 K/mcL (0.6-4.6); Lymphocytes % 10.7 %; Mean Corpuscular HGB Conc 31.4 g/dL (31.6-35.5); Mean Corpuscular Hemoglobin 27.5 pg (28.0-33.3); Mean Corpuscular Volume 87.8 fL (83.0-100.0); Mean Platelet Volume 9.7 fL (9.4-12.4); Monocytes # 0.8 K/mcL (0.0-1.3); Monocytes % 7.8 %; Neutrophils # 8.5 K/mcL (1.6-8.9); Platelet Count 361 K/mcL (140-400); Red Blood Count 3.45 M/mcL (3.82-4.97); Red Cell Distribution Width 16.1 % (11.5-14.5); Segmented Neutrophils % 80.7 %; White Blood Count 10.6 K/mcL (4.3-11.1)
[2022-03-26] MEDS: Insulin LISPRO 300 UNITS/3 ML VIAL SUBQ SCH ×4 (08:37→20:38)
[2022-03-26] MEDS: FLUoxetine 20 MG CAPSULE PO SCH (09:15)
[2022-03-26] MEDS: BuPROPion XL (24 HR) 150 MG TABLET PO SCH (09:15)
[2022-03-26] MEDS: Gabapentin 300 MG CAPSULE PO SCH ×3 (09:15→20:22)
[2022-03-26] MEDS: lisinopriL 10 MG TABLET PO SCH (09:16)
[2022-03-26] MEDS: Aspirin 81 MG TAB.CHEW PO SCH (09:16)
[2022-03-26] MEDS: *HR* HYDROcodone/Acet 10/325 mg TABLET PO PRN ×2 (11:18→20:23)
[2022-03-26] MEDS: rOPINIRole 1 MG TABLET PO SCH (20:23)
[2022-03-27] MEDS: Piperacillin/Tazobactam 3.375 GM in 0.9 % Sodium Chloride Mini Bag 100 ML IVPB SCH ×3 (05:56→21:03)
[2022-03-27] MEDS: *HR* Heparin 5,000 UNIT/ML VIAL SQ SCH ×2 (05:57→17:27)
[2022-03-27] MEDS: Insulin LISPRO 300 UNITS/3 ML VIAL SUBQ SCH ×4 (07:22→21:18)
[2022-03-27] MEDS: Aspirin 81 MG TAB.CHEW PO SCH (09:06)
[2022-03-27] MEDS: BuPROPion XL (24 HR) 150 MG TABLET PO SCH (09:06)
[2022-03-27] MEDS: FLUoxetine 20 MG CAPSULE PO SCH (09:06)
[2022-03-27] MEDS: lisinopriL 10 MG TABLET PO SCH (09:06)
[2022-03-27] MEDS: Gabapentin 300 MG CAPSULE PO SCH ×3 (09:06→21:04)
[2022-03-27] MEDS: *HR* HYDROcodone/Acet 10/325 mg TABLET PO PRN (10:54)
[2022-03-27] MEDS: Ipratropium/Albuterol Neb 3 ML IH SCH ×3 (14:09→20:47)
[2022-03-27] MEDS: rOPINIRole 1 MG TABLET PO SCH (21:04)
[2022-03-28] MEDS: Piperacillin/Tazobactam 3.375 GM in 0.9 % Sodium Chloride Mini Bag 100 ML IVPB SCH (03:38)
[2022-03-28] MEDS: Ipratropium/Albuterol Neb 3 ML IH SCH ×2 (03:48→10:25)
[2022-03-28] MEDS: *HR* Heparin 5,000 UNIT/ML VIAL SQ SCH (05:10)
[2022-03-28] MEDS: BuPROPion XL (24 HR) 150 MG TABLET PO SCH (08:34)
[2022-03-28] MEDS: lisinopriL 10 MG TABLET PO SCH (08:34)
[2022-03-28] MEDS: Gabapentin 300 MG CAPSULE PO SCH (08:34)
[2022-03-28] MEDS: FLUoxetine 20 MG CAPSULE PO SCH (08:34)
[2022-03-28] MEDS: Aspirin 81 MG TAB.CHEW PO SCH (08:35)
[2022-03-28] MEDS: Insulin LISPRO 300 UNITS/3 ML VIAL SUBQ SCH ×2 (08:35→12:05)
[2022-03-28 10:57] VITALS: BP 161/77; PULSE 85; TEMP 98.3; O2SAT 95
[2022-03-28 11:07] LABS: Influenza A PCR Negative (Negative); Influenza B PCR Negative (Negative); Resp. Syncytial Virus PCR Negative (Negative)
[2022-03-28 11:09] LABS: SARS-CoV-2 by PCR (In House) Negative (Negative)
== END 2022-03-28 14:33 | DRG 689 ==
LOC: 3BNU 10:00 → EMEROOARM 10:00 → SUATTDRO 13:01 → 3BNU 14:00
PROVIDERS: ADMIT General Practice; ATTEND Internal Medicine

== ENCOUNTER 2022-04-28 14:39 | Inpatient (IN) ==
[2022-04-28] MEDS ORDERED: 0.9 % Sodium Chloride 1,000 ML IVC ONE ×2 (15:21→17:30)
[2022-04-28 16:46] LABS: Basophils % 0.2 %; Hematocrit 32.8 % (35.3-44.9); Immature Granulocytes % 0.4 % (0-4); Lymphocytes # 1.7 K/mcL (0.6-4.6); Mean Corpuscular HGB Conc 30.5 g/dL (31.6-35.5); Mean Corpuscular Hemoglobin 26.5 pg (28.0-33.3); Mean Platelet Volume 9.4 fL (9.4-12.4); Monocytes # 0.8 K/mcL (0.0-1.3); Neutrophils # 14.1 K/mcL (1.6-8.9); Platelet Count 478 K/mcL (140-400); Red Blood Count 3.77 M/mcL (3.82-4.97); Red Cell Distribution Width 14.9 % (11.5-14.5); Segmented Neutrophils % 84.4 %; White Blood Count 16.8 K/mcL (4.3-11.1)
[2022-04-28 17:01] LABS: INR 1.4; Prothrombin Time 15.2 Seconds (9.4-12.1)
[2022-04-28 17:11] LABS: Bacteria,Urine Moderate per hpf (None-Few); Bilirubin,Urine Negative (Negative); Blood,Urine Large (Negative); Clarity,Urine Ex.Turbid (Clear); Color,Urine Yellow (Yellow); Glucose,Urine (UA) Normal (Normal); Ketones,Urine 60 mg/dL (Negative); Leukocyte Esterase,Urine Large (Negative); Mucus,Urine Moderate per lpf (None-Few); Nitrite,Urine Positive (Negative); Protein,Urine >=300 mg/dL (Neg-Trace); RBC,Urine TNTC per hpf (0-3); Specific Gravity,Urine 1.023 (1.010-1.025); Triple Phosphate Crystal,Urine Present per hpf; Urobilinogen,Urine Normal (Normal); WBC,Urine TNTC per hpf (0-3)
[2022-04-28 17:14] LABS: Troponin I < 0.03 ng/mL (< 0.04)
[2022-04-28] MEDS ORDERED: Piperacillin/Tazobactam 3.375 GM in 0.9 % Sodium Chloride Mini Bag 100 ML IVPB ONE (17:18)
[2022-04-28 17:51] LABS: Alanine Aminotransferase 10 Units/L (7-52); Albumin 3.6 g/dL (3.5-5.7); Albumin/Globulin Ratio 0.9 (1.1-2.2); Alkaline Phosphatase 83 Units/L (34-104); Aspartate Amino Transferase 20 Units/L (13-39); BUN/Creatinine Ratio 29 (6-26); Bilirubin,Direct 0.1 mg/dL (0.0-0.2); Bilirubin,Indirect 0.3 mg/dL (0.0-1.0); Bilirubin,Total 0.4 mg/dL (0.3-1.0); Blood Urea Nitrogen 26 mg/dL (8-23); Calcium 9.4 mg/dL (8.6-10.3); Carbon Dioxide 19 mEq/L (23-29); Chloride 102 mEq/L (98-107); Creatine Kinase 260 Units/L (30-223); Globulin 3.8 g/dL (2.4-3.5); Glucose 138 mg/dL (70-105); Osmolality,Calculated 285 (280-300); Potassium 4.5 mEq/L (3.5-5.1); Sodium 134 mEq/L (136-145); Total Protein 7.4 g/dL (6.4-8.9); eGFR For African Americans > 60 (> 60); eGFR For Non-African Americans > 60 (> 60)
[2022-04-28] MEDS ORDERED: Melatonin 3 MG TABLET PO PRN (18:30)
[2022-04-28] MEDS ORDERED: Naloxone 0.4 MG/ML INJ IVP PRN (18:30)
[2022-04-28] MEDS ORDERED: MOM Conc 10 ML UD.LIQ PO PRN (18:30)
[2022-04-28] MEDS ORDERED: Ondansetron 4 MG/2 ML VIAL IVP PRN (18:30)
[2022-04-28] MEDS ORDERED: *HR* Dextrose 50 % in Water (Syg) 50 ML SYRINGE IVP PRN (18:45)
[2022-04-28] MEDS ORDERED: D5% in Water 1,000 ML IVC PRN (18:45)
[2022-04-28] MEDS ORDERED: Dextrose Gel 15 GM/37.5 ML TUBE PO PRN ×2 (18:45)
[2022-04-28] MEDS: Piperacillin/Tazobactam 3.375 GM in 0.9 % Sodium Chloride Mini Bag 100 ML IVPB SCH (19:03)
[2022-04-28] MEDS: 0.9 % Sodium Chloride 1,000 ML IVC SCH (21:30)
[2022-04-28 23:56] LABS: Acetaminophen < 10 mcg/mL (10-20); Ethanol < 10 mg/dL (Less than 10); Salicylate < 2.5 mg/dL (15.0-30.0)
[2022-04-29] MEDS: Insulin LISPRO 300 UNITS/3 ML VIAL SUBQ SCH ×4 (00:33→16:53)
[2022-04-29 00:46] LABS: VBG HCO3 19 mEq/L (21-27); VBG PCO2 26 mmHg (41-51); VBG PH 7.46 pH Units (7.32-7.42); VBG PO2 175 mmHg (25-50)
[2022-04-29] MEDS: Piperacillin/Tazobactam 3.375 GM in 0.9 % Sodium Chloride Mini Bag 100 ML IVPB SCH ×3 (03:20→18:16)
[2022-04-29 04:30] LABS: Basophils % 0.3 %; Eosinophils % 0.1 %; Hematocrit 27.1 % (35.3-44.9); Immature Granulocytes % 0.2 % (0-4); Lymphocytes # 3.3 K/mcL (0.6-4.6); Lymphocytes % 26.3 %; Mean Corpuscular HGB Conc 30.6 g/dL (31.6-35.5); Mean Corpuscular Hemoglobin 26.3 pg (28.0-33.3); Mean Corpuscular Volume 85.8 fL (83.0-100.0); Mean Platelet Volume 9.6 fL (9.4-12.4); Monocytes # 0.9 K/mcL (0.0-1.3); Monocytes % 7.1 %; Neutrophils # 8.2 K/mcL (1.6-8.9); Platelet Count 448 K/mcL (140-400); Red Blood Count 3.16 M/mcL (3.82-4.97); Red Cell Distribution Width 14.8 % (11.5-14.5); White Blood Count 12.5 K/mcL (4.3-11.1)
[2022-04-29 04:32] LABS: Hemoglobin 8.3 g/dL (11.5-15.4)
[2022-04-29 04:48] LABS: BUN/Creatinine Ratio 25 (6-26); Blood Urea Nitrogen 20 mg/dL (8-23); Calcium 8.5 mg/dL (8.6-10.3); Carbon Dioxide 23 mEq/L (23-29); Chloride 107 mEq/L (98-107); Creatine Kinase 136 Units/L (30-223); Glucose 86 mg/dL (70-105); Magnesium 1.4 mg/dL (1.6-2.6); Osmolality,Calculated 286 (280-300); Phosphorous 2.5 mg/dL (2.7-4.5); Potassium 3.7 mEq/L (3.5-5.1); Sodium 137 mEq/L (136-145); eGFR For African Americans > 60 (> 60); eGFR For Non-African Americans > 60 (> 60)
[2022-04-29] MEDS: Aspirin Enteric Coated 81 MG Tablet PO SCH (09:49)
[2022-04-29 10:50] LABS: Adenovirus Not Detected (Not Detect); Bordetella Pertussis Not Detected (Not Detect); Chlamydophila pneumoniae Not Detected (Not Detect); Coronavirus 229E Not Detected (Not Detect); Coronavirus HKU1 Not Detected (Not Detect); Coronavirus NL63 Not Detected (Not Detect); Coronavirus OC43 Not Detected (Not Detect); Human Metapneumovirus Not Detected (Not Detect); Human Rhinovirus/Enterovirus Not Detected (Not Detect); Influenza A Subtype 2009 H1 Not Detected (Not Detect); Influenza B Not Detected (Not Detect); Mycoplasma pneumoniae Not Detected (Not Detect); Parainfluenza Virus 1 Not Detected (Not Detect); Parainfluenza Virus 2 Not Detected (Not Detect); Parainfluenza Virus 3 Not Detected (Not Detect); Parainfluenza Virus 4 Not Detected (Not Detect); Respiratory Syncytial Virus Not Detected (Not Detect); SARS-CoV-2 Not Detected (Not Detect)
[2022-04-29] MEDS: 0.9 % Sodium Chloride 1,000 ML IVC SCH (12:14)
[2022-04-29 16:45] LABS: Adenovirus F 40/41 PCR Not detected (Not detect); Astrovirus PCR Not detected (Not detect); Campylobacter by PCR Not detected (Not detect); Cryptosporidium by PCR Not detected (Not detect); Cyclospora cayetanensis PCR Not detected (Not detect); Entamoeba histolytica PCR Not detected (Not detect); Enteroaggregative E.coli(EAEC) Not detected (Not detect); Enteropathogenic E.coli(EPEC) Not detected (Not detect); Enterotoxigenic E.coli (ETEC) Not detected (Not detect); Giardia lamblia PCR Not detected (Not detect); Norovirus GI/GII PCR Not detected (Not detect); Plesiomonas shigelloides PCR Not detected (Not detect); Rotavirus A PCR Not detected (Not detect); Salmonella PCR Not detected (Not detect); Sapovirus PCR Not detected (Not detect); Shig/EnteroinvasiveE coli EIEC Not detected (Not detect); Shigalike tox-prod E coli STEC Not detected (Not detect); Vibrio PCR Not detected (Not detect); Vibrio cholerae PCR Not detected (Not detect); Yersinia enterocolitica PCR Not detected (Not detect)
[2022-04-29 16:46] LABS: C.difficile Toxin A/B Gene PCR DETECTED (Not detect)
[2022-04-29] MEDS: Vancomycin Oral Soln 125 MG/2.5 ML UDC PO SCH ×2 (18:18→23:13)
[2022-04-29] MEDS: Lactobacillus 1 EACH CAP.SPRINK PO SCH (20:22)
[2022-04-30] MEDS: Piperacillin/Tazobactam 3.375 GM in 0.9 % Sodium Chloride Mini Bag 100 ML IVPB SCH (03:44)
[2022-04-30] MEDS: Acetaminophen 325 MG TABLET PO PRN (04:27)
[2022-04-30] MEDS: Insulin LISPRO 300 UNITS/3 ML VIAL SUBQ SCH ×5 (07:24→20:50)
[2022-04-30] MEDS: 0.9 % Sodium Chloride 1,000 ML IVC SCH (07:25)
[2022-04-30 09:42] LABS: Basophils % 0.4 %; Eosinophils % 0.1 %; Hematocrit 26.6 % (35.3-44.9); Hemoglobin 8.3 g/dL (11.5-15.4); Immature Granulocytes % 0.3 % (0-4); Lymphocytes # 1.6 K/mcL (0.6-4.6); Mean Corpuscular HGB Conc 31.2 g/dL (31.6-35.5); Mean Corpuscular Hemoglobin 26.3 pg (28.0-33.3); Mean Corpuscular Volume 84.2 fL (83.0-100.0); Mean Platelet Volume 9.2 fL (9.4-12.4); Monocytes # 0.6 K/mcL (0.0-1.3); Monocytes % 5.5 %; Neutrophils # 8.3 K/mcL (1.6-8.9); Platelet Count 412 K/mcL (140-400); Red Blood Count 3.16 M/mcL (3.82-4.97); Red Cell Distribution Width 14.6 % (11.5-14.5); Segmented Neutrophils % 78.7 %; White Blood Count 10.5 K/mcL (4.3-11.1)
[2022-04-30] MEDS: Aspirin Enteric Coated 81 MG Tablet PO SCH (09:58)
[2022-04-30] MEDS: Lactobacillus 1 EACH CAP.SPRINK PO SCH ×2 (09:58→20:56)
[2022-04-30 10:01] LABS: BUN/Creatinine Ratio 13 (6-26); Blood Urea Nitrogen 9 mg/dL (8-23); Calcium 8.2 mg/dL (8.6-10.3); Carbon Dioxide 23 mEq/L (23-29); Chloride 107 mEq/L (98-107); Creatine Kinase 43 Units/L (30-223); Glucose 187 mg/dL (70-105); Magnesium 1.3 mg/dL (1.6-2.6); Osmolality,Calculated 284 (280-300); Phosphorous 2.5 mg/dL (2.7-4.5); Potassium 3.4 mEq/L (3.5-5.1); Sodium 135 mEq/L (136-145)
[2022-04-30] MEDS ORDERED: Potassium Chloride Elixir 20 MEQ/15 ML UDC PO ONE (10:04)
[2022-04-30] MEDS: Ertapenem 1,000 MG in 0.9 % Sodium Chloride Mini Bag 100 ML IVPB SCH (14:57)
[2022-04-30] MEDS ORDERED: DAPTOmycin 650 MG in 0.9 % Sodium Chloride 100 ML IVPB ONE (17:00)
[2022-04-30] MEDS: Vancomycin Oral Soln 125 MG/2.5 ML UDC PO SCH (20:56)
[2022-05-01 04:13] LABS: Basophils # 0.1 K/mcL (0.0-0.2); Basophils % 0.5 %; Hematocrit 27.3 % (35.3-44.9); Hemoglobin 8.6 g/dL (11.5-15.4); Immature Granulocytes % 0.3 % (0-4); Lymphocytes # 2.4 K/mcL (0.6-4.6); Lymphocytes % 18.3 %; Mean Corpuscular HGB Conc 31.5 g/dL (31.6-35.5); Mean Corpuscular Hemoglobin 26.6 pg (28.0-33.3); Mean Corpuscular Volume 84.5 fL (83.0-100.0); Mean Platelet Volume 9.1 fL (9.4-12.4); Monocytes % 7.2 %; Neutrophils # 9.8 K/mcL (1.6-8.9); Platelet Count 424 K/mcL (140-400); Red Blood Count 3.23 M/mcL (3.82-4.97); Red Cell Distribution Width 14.6 % (11.5-14.5); Segmented Neutrophils % 73.7 %; White Blood Count 13.3 K/mcL (4.3-11.1)
[2022-05-01 04:32] LABS: BUN/Creatinine Ratio 10 (6-26); Blood Urea Nitrogen 6 mg/dL (8-23); Calcium 8.5 mg/dL (8.6-10.3); Carbon Dioxide 23 mEq/L (23-29); Chloride 106 mEq/L (98-107); Glucose 116 mg/dL (70-105); Osmolality,Calculated 279 (280-300); Potassium 3.6 mEq/L (3.5-5.1); Sodium 135 mEq/L (136-145)
[2022-05-01] MEDS: Vancomycin Oral Soln 125 MG/2.5 ML UDC PO SCH ×3 (07:53→21:47)
[2022-05-01] MEDS: Insulin LISPRO 300 UNITS/3 ML VIAL SUBQ SCH ×4 (07:58→21:23)
[2022-05-01 09:00] LABS: Amphetamine Screen,Urine Negative ng/mL (Cutoff=1000); Barbiturate Screen,Urine Negative ng/mL (Cutoff=200); Benzodiazepines Screen,Urine Negative ng/mL (Cutoff=200); Cannabinoid Screen,Urine Negative ng/mL (Cutoff = 50); Cocaine Screen,Urine Negative ng/mL (Cutoff= 300); Opiate Screen,Urine Negative ng/mL (Cutoff=300); Phencyclidine Screen,Urine Negative ng/mL (Cutoff=25)
[2022-05-01] MEDS: Ertapenem 1,000 MG in 0.9 % Sodium Chloride Mini Bag 100 ML IVPB SCH (10:08)
[2022-05-01] MEDS: Lactobacillus 1 EACH CAP.SPRINK PO SCH ×2 (10:09→21:27)
[2022-05-01] MEDS: lisinopriL 10 MG TABLET PO SCH (10:09)
[2022-05-01] MEDS: Aspirin Enteric Coated 81 MG Tablet PO SCH (10:09)
[2022-05-01] MEDS: Gabapentin 300 MG CAPSULE PO SCH ×3 (10:09→21:27)
[2022-05-01] MEDS: Acetaminophen 325 MG TABLET PO PRN (17:29)
[2022-05-02 05:20] LABS: Basophils # 0.1 K/mcL (0.0-0.2); Basophils % 0.5 %; Eosinophils % 0.1 %; Hematocrit 27.9 % (35.3-44.9); Hemoglobin 8.9 g/dL (11.5-15.4); Immature Granulocytes % 0.3 % (0-4); Lymphocytes # 2.7 K/mcL (0.6-4.6); Lymphocytes % 21.2 %; Mean Corpuscular HGB Conc 31.9 g/dL (31.6-35.5); Mean Corpuscular Hemoglobin 26.7 pg (28.0-33.3); Mean Corpuscular Volume 83.8 fL (83.0-100.0); Mean Platelet Volume 9.4 fL (9.4-12.4); Monocytes # 1.1 K/mcL (0.0-1.3); Monocytes % 8.3 %; Neutrophils # 8.9 K/mcL (1.6-8.9); Platelet Count 442 K/mcL (140-400); Red Blood Count 3.33 M/mcL (3.82-4.97); Red Cell Distribution Width 14.9 % (11.5-14.5); Segmented Neutrophils % 69.6 %; White Blood Count 12.9 K/mcL (4.3-11.1)
[2022-05-02 05:28] LABS: BUN/Creatinine Ratio 12 (6-26); Blood Urea Nitrogen 7 mg/dL (8-23); Calcium 8.7 mg/dL (8.6-10.3); Carbon Dioxide 27 mEq/L (23-29); Chloride 102 mEq/L (98-107); Glucose 123 mg/dL (70-105); Magnesium 1.3 mg/dL (1.6-2.6); Osmolality,Calculated 281 (280-300); Phosphorous 3.6 mg/dL (2.7-4.5); Potassium 3.8 mEq/L (3.5-5.1); Sodium 136 mEq/L (136-145)
[2022-05-02] MEDS ORDERED: Magnesium Sulfate 1 GM/102 ML PIGGYBACK IVPB ONE (07:15)
[2022-05-02] MEDS: Insulin LISPRO 300 UNITS/3 ML VIAL SUBQ SCH ×3 (08:33→16:54)
[2022-05-02] MEDS: lisinopriL 10 MG TABLET PO SCH (08:33)
[2022-05-02] MEDS: Gabapentin 300 MG CAPSULE PO SCH ×3 (08:33→22:19)
[2022-05-02] MEDS: Lactobacillus 1 EACH CAP.SPRINK PO SCH ×2 (08:33→22:19)
[2022-05-02] MEDS: Aspirin Enteric Coated 81 MG Tablet PO SCH (08:34)
[2022-05-02] MEDS: Vancomycin Oral Soln 125 MG/2.5 ML UDC PO SCH (08:34)
[2022-05-02] MEDS: FLUoxetine 20 MG CAPSULE PO SCH (08:34)
[2022-05-03] MEDS: Gabapentin 300 MG CAPSULE PO SCH ×3 (10:08→19:50)
[2022-05-03] MEDS: lisinopriL 10 MG TABLET PO SCH (10:08)
[2022-05-03] MEDS: Lactobacillus 1 EACH CAP.SPRINK PO SCH ×2 (10:08→19:50)
[2022-05-03] MEDS: FLUoxetine 20 MG CAPSULE PO SCH (10:08)
[2022-05-03] MEDS: Insulin LISPRO 300 UNITS/3 ML VIAL SUBQ SCH ×4 (10:08→19:49)
[2022-05-03] MEDS: Aspirin Enteric Coated 81 MG Tablet PO SCH (10:08)
[2022-05-03] MEDS: Ertapenem 1,000 MG in 0.9 % Sodium Chloride Mini Bag 100 ML IVPB SCH (10:26)
[2022-05-03 13:09] LABS: Basophils % 0.3 %; Eosinophils % 0.1 %; Hematocrit 28.1 % (35.3-44.9); Immature Granulocytes % 0.4 % (0-4); Lymphocytes # 2.1 K/mcL (0.6-4.6); Lymphocytes % 15.1 %; Mean Corpuscular Hemoglobin 26.7 pg (28.0-33.3); Mean Corpuscular Volume 83.4 fL (83.0-100.0); Mean Platelet Volume 9.4 fL (9.4-12.4); Monocytes # 1.4 K/mcL (0.0-1.3); Monocytes % 9.5 %; Neutrophils # 10.6 K/mcL (1.6-8.9); Platelet Count 450 K/mcL (140-400); Red Blood Count 3.37 M/mcL (3.82-4.97); Red Cell Distribution Width 14.9 % (11.5-14.5); Segmented Neutrophils % 74.6 %; White Blood Count 14.1 K/mcL (4.3-11.1)
[2022-05-03 13:28] LABS: BUN/Creatinine Ratio 17 (6-26); Blood Urea Nitrogen 12 mg/dL (8-23); Calcium 8.6 mg/dL (8.6-10.3); Carbon Dioxide 23 mEq/L (23-29); Chloride 100 mEq/L (98-107); Glucose 170 mg/dL (70-105); Osmolality,Calculated 278 (280-300); Potassium 3.9 mEq/L (3.5-5.1); Sodium 132 mEq/L (136-145)
[2022-05-03] MEDS ORDERED: *HR* OxyCODONE/APAP 5/325 TABLET PO PRN (16:36)
[2022-05-03] MEDS ORDERED: *HR* HYDROcodone/Acet 5/325 mg TABLET PO PRN (16:36)
[2022-05-03] MEDS ORDERED: Gadolinium Contrast Agent (WT Based) IV PRN (16:47)
[2022-05-03] MEDS ORDERED: Vancomycin 1,500 MG/265 ML IV.SOLN IVPB SCH (17:00)
[2022-05-04] MEDS ORDERED: *HR* Metoprolol 5 MG/5 ML VIAL IVP ONE (03:34)
[2022-05-04] MEDS: Ertapenem 1,000 MG in 0.9 % Sodium Chloride Mini Bag 100 ML IVPB SCH (08:09)
[2022-05-04] MEDS: Lactobacillus 1 EACH CAP.SPRINK PO SCH ×2 (08:10→21:44)
[2022-05-04] MEDS: Gabapentin 300 MG CAPSULE PO SCH ×3 (08:10→21:45)
[2022-05-04] MEDS: Aspirin Enteric Coated 81 MG Tablet PO SCH (08:10)
[2022-05-04] MEDS: FLUoxetine 20 MG CAPSULE PO SCH (08:10)
[2022-05-04] MEDS: lisinopriL 10 MG TABLET PO SCH (08:10)
[2022-05-04] MEDS: Insulin LISPRO 300 UNITS/3 ML VIAL SUBQ SCH ×5 (08:11→21:43)
[2022-05-04] MEDS ORDERED: Magnesium Oxide 400 MG TABLET PO SCH (09:00)
[2022-05-04 12:02] LABS: Basophils % 0.3 %; Hematocrit 28.1 % (35.3-44.9); Hemoglobin 8.9 g/dL (11.5-15.4); Immature Granulocytes % 0.4 % (0-4); Lymphocytes # 1.6 K/mcL (0.6-4.6); Lymphocytes % 11.2 %; Mean Corpuscular HGB Conc 31.7 g/dL (31.6-35.5); Mean Corpuscular Hemoglobin 26.3 pg (28.0-33.3); Mean Corpuscular Volume 83.1 fL (83.0-100.0); Mean Platelet Volume 9.3 fL (9.4-12.4); Monocytes # 1.3 K/mcL (0.0-1.3); Monocytes % 9.2 %; Neutrophils # 11.5 K/mcL (1.6-8.9); Platelet Count 459 K/mcL (140-400); Red Blood Count 3.38 M/mcL (3.82-4.97); Red Cell Distribution Width 14.9 % (11.5-14.5); Segmented Neutrophils % 78.9 %; White Blood Count 14.5 K/mcL (4.3-11.1)
[2022-05-04 12:21] LABS: BUN/Creatinine Ratio 19 (6-26); Blood Urea Nitrogen 12 mg/dL (8-23); Calcium 8.6 mg/dL (8.6-10.3); Carbon Dioxide 25 mEq/L (23-29); Chloride 99 mEq/L (98-107); Glucose 267 mg/dL (70-105); Osmolality,Calculated 281 (280-300); Potassium 4.3 mEq/L (3.5-5.1); Sodium 131 mEq/L (136-145)
[2022-05-04] MEDS: Thiamine (B-1) 100 MG TABLET PO SCH ×2 (13:34→21:44)
[2022-05-04] MEDS: *HR* OxyCODONE/APAP 10/325 TABLET PO PRN ×2 (15:44→21:44)
[2022-05-04] MEDS ORDERED: Iopamidol - 370 500 ML MLS IVP ONE ×2 (16:35)
[2022-05-04] MEDS: Magnesium Oxide 400 MG TABLET PO SCH (21:44)
[2022-05-05 00:49] LABS: Basophils # 0.1 K/mcL (0.0-0.2); Basophils % 0.3 %; Hematocrit 28.6 % (35.3-44.9); Hemoglobin 8.9 g/dL (11.5-15.4); Immature Granulocytes % 0.3 % (0-4); Lymphocytes # 2.2 K/mcL (0.6-4.6); Lymphocytes % 13.3 %; Mean Corpuscular HGB Conc 31.1 g/dL (31.6-35.5); Mean Corpuscular Hemoglobin 26.2 pg (28.0-33.3); Mean Corpuscular Volume 84.1 fL (83.0-100.0); Mean Platelet Volume 9.3 fL (9.4-12.4); Monocytes # 1.7 K/mcL (0.0-1.3); Monocytes % 10.4 %; Neutrophils # 12.6 K/mcL (1.6-8.9); Platelet Count 489 K/mcL (140-400); Red Cell Distribution Width 14.9 % (11.5-14.5); Segmented Neutrophils % 75.7 %; White Blood Count 16.7 K/mcL (4.3-11.1)
[2022-05-05 00:59] LABS: BUN/Creatinine Ratio 23 (6-26); Blood Urea Nitrogen 16 mg/dL (8-23); Calcium 8.9 mg/dL (8.6-10.3); Carbon Dioxide 25 mEq/L (23-29); Chloride 99 mEq/L (98-107); Glucose 270 mg/dL (70-105); Magnesium 1.9 mg/dL (1.6-2.6); Osmolality,Calculated 281 (280-300); Potassium 4.3 mEq/L (3.5-5.1); Sodium 130 mEq/L (136-145)
[2022-05-05] MEDS: Nystatin POWDER 30 GM BOTTLE TP SCH ×3 (05:54→21:49)
[2022-05-05 06:04] LABS: Bilirubin,Urine Negative (Negative); Blood,Urine Negative (Negative); Clarity,Urine Clear (Clear); Color,Urine Light-Orange (Yellow); Glucose,Urine (UA) 200 mg/dL (Normal); Ketones,Urine Negative (Negative); Leukocyte Esterase,Urine Negative (Negative); Mucus,Urine Few per lpf (None-Few); Nitrite,Urine Negative (Negative); Protein,Urine 70 mg/dL (Neg-Trace); Specific Gravity,Urine > 1.030 (1.010-1.025); Squamous Epithelial Cell,Urine Few per hpf (None-Few); Urobilinogen,Urine Normal (Normal); WBC,Urine 0-3 per hpf (0-3)
[2022-05-05] MEDS: Magnesium Oxide 400 MG TABLET PO SCH ×2 (10:21→21:40)
[2022-05-05] MEDS: Gabapentin 300 MG CAPSULE PO SCH ×3 (10:21→21:40)
[2022-05-05] MEDS: lisinopriL 10 MG TABLET PO SCH (10:21)
[2022-05-05] MEDS: Ertapenem 1,000 MG in 0.9 % Sodium Chloride Mini Bag 100 ML IVPB SCH (10:21)
[2022-05-05] MEDS: Lactobacillus 1 EACH CAP.SPRINK PO SCH ×2 (10:21→21:40)
[2022-05-05] MEDS: FLUoxetine 20 MG CAPSULE PO SCH (10:21)
[2022-05-05] MEDS: Thiamine (B-1) 100 MG TABLET PO SCH ×2 (10:21→21:40)
[2022-05-05] MEDS: Aspirin Enteric Coated 81 MG Tablet PO SCH (10:21)
[2022-05-05] MEDS: *HR* OxyCODONE/APAP 10/325 TABLET PO PRN (10:34)
[2022-05-05] MEDS: Insulin LISPRO 300 UNITS/3 ML VIAL SUBQ SCH ×4 (10:36→21:51)
[2022-05-05] MEDS: Acetaminophen 325 MG TABLET PO PRN ×2 (13:57→22:40)
[2022-05-06] MEDS ORDERED: Acetaminophen IV 1,000 MG/100 ML BAG IVPB ONE (00:27)
[2022-05-06 10:35] LABS: Basophils # 0.1 K/mcL (0.0-0.2); Basophils % 0.5 %; Eosinophils % 0.1 %; Hematocrit 28.6 % (35.3-44.9); Hemoglobin 8.9 g/dL (11.5-15.4); Immature Granulocytes % 0.3 % (0-4); Mean Corpuscular HGB Conc 31.1 g/dL (31.6-35.5); Mean Corpuscular Hemoglobin 26.1 pg (28.0-33.3); Mean Corpuscular Volume 83.9 fL (83.0-100.0); Mean Platelet Volume 9.3 fL (9.4-12.4); Monocytes # 1.1 K/mcL (0.0-1.3); Monocytes % 7.4 %; Platelet Count 585 K/mcL (140-400); Red Blood Count 3.41 M/mcL (3.82-4.97); Segmented Neutrophils % 78.7 %; White Blood Count 15.2 K/mcL (4.3-11.1)
[2022-05-06 10:39] LABS: Source,Synovial Fluid left knee
[2022-05-06 11:00] LABS: BUN/Creatinine Ratio 34 (6-26); Blood Urea Nitrogen 20 mg/dL (8-23); Calcium 9.3 mg/dL (8.6-10.3); Carbon Dioxide 27 mEq/L (23-29); Chloride 98 mEq/L (98-107); Glucose 227 mg/dL (70-105); Osmolality,Calculated 284 (280-300); Potassium 4.9 mEq/L (3.5-5.1); Sodium 132 mEq/L (136-145)
[2022-05-06] MEDS: FLUoxetine 20 MG CAPSULE PO SCH (11:01)
[2022-05-06] MEDS: Aspirin Enteric Coated 81 MG Tablet PO SCH (11:01)
[2022-05-06] MEDS: *HR* OxyCODONE/APAP 10/325 TABLET PO PRN (11:01)
[2022-05-06] MEDS: Magnesium Oxide 400 MG TABLET PO SCH ×2 (11:01→20:39)
[2022-05-06] MEDS: Ertapenem 1,000 MG in 0.9 % Sodium Chloride Mini Bag 100 ML IVPB SCH (11:02)
[2022-05-06] MEDS: Thiamine (B-1) 100 MG TABLET PO SCH ×2 (11:02→20:38)
[2022-05-06] MEDS: Gabapentin 300 MG CAPSULE PO SCH ×3 (11:02→20:50)
[2022-05-06] MEDS: Insulin DETEMIR 100 UNIT/ML X5UNITS SUBQ SCH ×2 (11:02→20:38)
[2022-05-06] MEDS: Lactobacillus 1 EACH CAP.SPRINK PO SCH ×2 (11:02→20:38)
[2022-05-06] MEDS: lisinopriL 10 MG TABLET PO SCH (11:02)
[2022-05-06] MEDS: Nystatin POWDER 30 GM BOTTLE TP SCH ×2 (11:03→20:39)
[2022-05-06] MEDS: Insulin LISPRO 300 UNITS/3 ML VIAL SUBQ SCH ×4 (11:17→20:28)
[2022-05-06 12:37] LABS: Appearance,Synovial Fluid Cloudy (Clear-Hazy); Color,Synovial Fluid Straw (Straw)
[2022-05-06] MEDS ORDERED: Ibuprofen 400 MG TABLET PO PRN (12:58)
[2022-05-06] MEDS: *HR* Heparin 5,000 UNIT/ML VIAL SQ SCH (18:08)
[2022-05-07] MEDS: *HR* Heparin 5,000 UNIT/ML VIAL SQ SCH ×2 (05:15→18:03)
[2022-05-07] MEDS: *HR* OxyCODONE/APAP 5/325 TABLET PO PRN ×2 (05:28→20:54)
[2022-05-07 05:45] LABS: Basophils # 0.1 K/mcL (0.0-0.2); Basophils % 0.5 %; Eosinophils % 0.1 %; Hematocrit 27.6 % (35.3-44.9); Hemoglobin 8.7 g/dL (11.5-15.4); Immature Granulocytes % 0.4 % (0-4); Lymphocytes # 2.8 K/mcL (0.6-4.6); Lymphocytes % 19.6 %; Mean Corpuscular HGB Conc 31.5 g/dL (31.6-35.5); Mean Corpuscular Hemoglobin 26.2 pg (28.0-33.3); Mean Corpuscular Volume 83.1 fL (83.0-100.0); Mean Platelet Volume 9.2 fL (9.4-12.4); Monocytes # 0.9 K/mcL (0.0-1.3); Monocytes % 6.3 %; Neutrophils # 10.4 K/mcL (1.6-8.9); Platelet Count 582 K/mcL (140-400); Red Blood Count 3.32 M/mcL (3.82-4.97); Red Cell Distribution Width 14.9 % (11.5-14.5); Segmented Neutrophils % 73.1 %; White Blood Count 14.2 K/mcL (4.3-11.1)
[2022-05-07 06:06] LABS: BUN/Creatinine Ratio 32 (6-26); Blood Urea Nitrogen 18 mg/dL (8-23); Calcium 9.2 mg/dL (8.6-10.3); Carbon Dioxide 28 mEq/L (23-29); Chloride 97 mEq/L (98-107); Glucose 191 mg/dL (70-105); Magnesium 1.5 mg/dL (1.6-2.6); Osmolality,Calculated 279 (280-300); Phosphorous 3.2 mg/dL (2.7-4.5); Potassium 4.5 mEq/L (3.5-5.1); Sodium 131 mEq/L (136-145)
[2022-05-07] MEDS ORDERED: Magnesium Sulfate 1 GM/102 ML PIGGYBACK IVPB ONE (07:32)
[2022-05-07] MEDS ORDERED: amLODIPine 5 MG TABLET PO SCH (09:00)
[2022-05-07] MEDS: Magnesium Oxide 400 MG TABLET PO SCH ×2 (09:43→20:54)
[2022-05-07] MEDS: Aspirin Enteric Coated 81 MG Tablet PO SCH (09:43)
[2022-05-07] MEDS: FLUoxetine 20 MG CAPSULE PO SCH (09:43)
[2022-05-07] MEDS: Thiamine (B-1) 100 MG TABLET PO SCH ×2 (09:43→20:54)
[2022-05-07] MEDS: Lactobacillus 1 EACH CAP.SPRINK PO SCH ×2 (09:43→20:54)
[2022-05-07] MEDS: lisinopriL 10 MG TABLET PO SCH (09:43)
[2022-05-07] MEDS: Insulin DETEMIR 100 UNIT/ML X5UNITS SUBQ SCH ×2 (09:43→20:55)
[2022-05-07] MEDS: Insulin LISPRO 300 UNITS/3 ML VIAL SUBQ SCH ×4 (09:44→20:53)
[2022-05-07] MEDS: Ertapenem 1,000 MG in 0.9 % Sodium Chloride Mini Bag 100 ML IVPB SCH (09:45)
[2022-05-07] MEDS: Nystatin POWDER 30 GM BOTTLE TP SCH ×2 (09:46→20:55)
[2022-05-07] MEDS: Gabapentin 300 MG CAPSULE PO SCH ×3 (10:50→20:54)
[2022-05-07] MEDS: *HR* OxyCODONE/APAP 10/325 TABLET PO PRN (12:52)
[2022-05-07] MEDS ORDERED: Colchicine 0.6 MG TABLET PO ONE (13:09)
[2022-05-07 20:18] LABS: Adenovirus Not Detected (Not Detect); Bordetella Pertussis Not Detected (Not Detect); Chlamydophila pneumoniae Not Detected (Not Detect); Coronavirus 229E Not Detected (Not Detect); Coronavirus HKU1 Not Detected (Not Detect); Coronavirus NL63 Not Detected (Not Detect); Coronavirus OC43 Not Detected (Not Detect); Human Metapneumovirus Not Detected (Not Detect); Human Rhinovirus/Enterovirus Not Detected (Not Detect); Influenza A Subtype 2009 H1 Not Detected (Not Detect); Influenza B Not Detected (Not Detect); Mycoplasma pneumoniae Not Detected (Not Detect); Parainfluenza Virus 1 Not Detected (Not Detect); Parainfluenza Virus 2 Not Detected (Not Detect); Parainfluenza Virus 3 Not Detected (Not Detect); Parainfluenza Virus 4 Not Detected (Not Detect); Respiratory Syncytial Virus Not Detected (Not Detect); SARS-CoV-2 Not Detected (Not Detect)
[2022-05-08] MEDS: *HR* Heparin 5,000 UNIT/ML VIAL SQ SCH ×2 (05:13→17:53)
[2022-05-08] MEDS: Insulin LISPRO 300 UNITS/3 ML VIAL SUBQ SCH ×4 (09:01→21:39)
[2022-05-08] MEDS: Aspirin Enteric Coated 81 MG Tablet PO SCH (09:01)
[2022-05-08] MEDS: Gabapentin 300 MG CAPSULE PO SCH ×3 (09:01→21:49)
[2022-05-08] MEDS: Lactobacillus 1 EACH CAP.SPRINK PO SCH ×2 (09:01→21:49)
[2022-05-08] MEDS: Magnesium Oxide 400 MG TABLET PO SCH ×2 (09:01→21:48)
[2022-05-08] MEDS: lisinopriL 10 MG TABLET PO SCH (09:01)
[2022-05-08] MEDS: FLUoxetine 20 MG CAPSULE PO SCH (09:02)
[2022-05-08] MEDS: Colchicine 0.6 MG TABLET PO SCH ×2 (09:02→21:48)
[2022-05-08] MEDS: amLODIPine 5 MG TABLET PO SCH (09:02)
[2022-05-08] MEDS: Thiamine (B-1) 100 MG TABLET PO SCH ×2 (09:02→21:49)
[2022-05-08] MEDS: Nystatin POWDER 30 GM BOTTLE TP SCH ×2 (09:03→21:49)
[2022-05-08] MEDS: Insulin DETEMIR 100 UNIT/ML X5UNITS SUBQ SCH ×2 (09:06→21:58)
[2022-05-08 09:39] LABS: Basophils # 0.1 K/mcL (0.0-0.2); Basophils % 0.6 %; Eosinophils % 0.1 %; Hematocrit 30.1 % (35.3-44.9); Hemoglobin 9.3 g/dL (11.5-15.4); Immature Granulocytes % 0.3 % (0-4); Lymphocytes # 2.2 K/mcL (0.6-4.6); Lymphocytes % 19.6 %; Mean Corpuscular HGB Conc 30.9 g/dL (31.6-35.5); Mean Corpuscular Hemoglobin 25.8 pg (28.0-33.3); Mean Corpuscular Volume 83.4 fL (83.0-100.0); Mean Platelet Volume 9.4 fL (9.4-12.4); Monocytes # 0.7 K/mcL (0.0-1.3); Monocytes % 6.1 %; Neutrophils # 8.2 K/mcL (1.6-8.9); Platelet Count 681 K/mcL (140-400); Red Blood Count 3.61 M/mcL (3.82-4.97); Red Cell Distribution Width 15.2 % (11.5-14.5); Segmented Neutrophils % 73.3 %; White Blood Count 11.1 K/mcL (4.3-11.1)
[2022-05-08 09:56] LABS: BUN/Creatinine Ratio 28 (6-26); Blood Urea Nitrogen 17 mg/dL (8-23); Calcium 9.4 mg/dL (8.6-10.3); Carbon Dioxide 29 mEq/L (23-29); Chloride 96 mEq/L (98-107); Glucose 189 mg/dL (70-105); Magnesium 1.5 mg/dL (1.6-2.6); Osmolality,Calculated 279 (280-300); Phosphorous 4.1 mg/dL (2.7-4.5); Potassium 4.6 mEq/L (3.5-5.1); Sodium 131 mEq/L (136-145)
[2022-05-08] MEDS ORDERED: Acetaminophen 325 MG TABLET PO PRN (11:05)
[2022-05-08] MEDS: *HR* OxyCODONE/APAP 5/325 TABLET PO PRN (16:49)
[2022-05-09 02:57] LABS: BUN/Creatinine Ratio 33 (6-26); Blood Urea Nitrogen 22 mg/dL (8-23); Calcium 9.1 mg/dL (8.6-10.3); Carbon Dioxide 26 mEq/L (23-29); Chloride 99 mEq/L (98-107); Glucose 213 mg/dL (70-105); Magnesium 1.6 mg/dL (1.6-2.6); Osmolality,Calculated 282 (280-300); Potassium 4.4 mEq/L (3.5-5.1); Sodium 131 mEq/L (136-145)
[2022-05-09] MEDS: *HR* Heparin 5,000 UNIT/ML VIAL SQ SCH ×2 (06:28→17:00)
[2022-05-09] MEDS: Aspirin Enteric Coated 81 MG Tablet PO SCH (08:39)
[2022-05-09] MEDS: Magnesium Oxide 400 MG TABLET PO SCH ×2 (08:39→22:35)
[2022-05-09] MEDS: Gabapentin 300 MG CAPSULE PO SCH ×3 (08:39→22:36)
[2022-05-09] MEDS: Colchicine 0.6 MG TABLET PO SCH ×2 (08:40→22:35)
[2022-05-09] MEDS: Lactobacillus 1 EACH CAP.SPRINK PO SCH ×2 (08:40→22:36)
[2022-05-09] MEDS: Thiamine (B-1) 100 MG TABLET PO SCH ×2 (08:40→22:36)
[2022-05-09] MEDS: FLUoxetine 20 MG CAPSULE PO SCH (08:40)
[2022-05-09] MEDS: amLODIPine 5 MG TABLET PO SCH (08:40)
[2022-05-09] MEDS: *HR* OxyCODONE/APAP 5/325 TABLET PO PRN (08:40)
[2022-05-09] MEDS: lisinopriL 10 MG TABLET PO SCH (08:40)
[2022-05-09] MEDS: Nystatin POWDER 30 GM BOTTLE TP SCH ×2 (08:41→22:37)
[2022-05-09] MEDS: Insulin LISPRO 300 UNITS/3 ML VIAL SUBQ SCH ×4 (08:41→22:37)
[2022-05-09] MEDS: Insulin DETEMIR 100 UNIT/ML X5UNITS SUBQ SCH (08:53)
[2022-05-09] MEDS: Acetaminophen 325 MG TABLET PO PRN (22:35)
[2022-05-10] MEDS: Insulin DETEMIR 100 UNIT/ML X5UNITS SUBQ SCH ×2 (01:43→09:20)
[2022-05-10 05:56] LABS: Calcium 9.6 mg/dL (8.6-10.3); Potassium 4.8 mEq/L (3.5-5.1)
[2022-05-10] MEDS: *HR* Heparin 5,000 UNIT/ML VIAL SQ SCH ×2 (06:41→16:35)
[2022-05-10] MEDS ORDERED: Insulin DETEMIR 100 UNIT/ML X5UNITS SUBQ SCH (09:00)
[2022-05-10] MEDS: Insulin LISPRO 300 UNITS/3 ML VIAL SUBQ SCH ×4 (09:15→21:39)
[2022-05-10] MEDS: Aspirin Enteric Coated 81 MG Tablet PO SCH (09:16)
[2022-05-10] MEDS: Lactobacillus 1 EACH CAP.SPRINK PO SCH ×2 (09:17→21:37)
[2022-05-10] MEDS: Colchicine 0.6 MG TABLET PO SCH ×2 (09:17→21:37)
[2022-05-10] MEDS: *HR* SitaGLIPtin 25 MG TABLET PO SCH (09:17)
[2022-05-10] MEDS: Magnesium Oxide 400 MG TABLET PO SCH ×2 (09:20→21:37)
[2022-05-10] MEDS: Gabapentin 300 MG CAPSULE PO SCH ×3 (09:20→21:37)
[2022-05-10] MEDS: amLODIPine 5 MG TABLET PO SCH (09:21)
[2022-05-10] MEDS: FLUoxetine 20 MG CAPSULE PO SCH (09:21)
[2022-05-10] MEDS: Thiamine (B-1) 100 MG TABLET PO SCH ×2 (09:21→21:37)
[2022-05-10] MEDS: lisinopriL 10 MG TABLET PO SCH (09:22)
[2022-05-10] MEDS: Nystatin POWDER 30 GM BOTTLE TP SCH ×2 (09:22→21:39)
[2022-05-11] MEDS: Insulin DETEMIR 100 UNIT/ML X5UNITS SUBQ SCH ×3 (01:16→22:09)
[2022-05-11] MEDS: *HR* Heparin 5,000 UNIT/ML VIAL SQ SCH ×2 (06:48→16:38)
[2022-05-11] MEDS: lisinopriL 10 MG TABLET PO SCH (07:58)
[2022-05-11] MEDS: FLUoxetine 20 MG CAPSULE PO SCH (07:58)
[2022-05-11] MEDS: *HR* SitaGLIPtin 25 MG TABLET PO SCH (07:58)
[2022-05-11] MEDS: Gabapentin 300 MG CAPSULE PO SCH ×3 (07:58→22:03)
[2022-05-11] MEDS: amLODIPine 5 MG TABLET PO SCH (07:58)
[2022-05-11] MEDS: Aspirin Enteric Coated 81 MG Tablet PO SCH (07:59)
[2022-05-11] MEDS: Thiamine (B-1) 100 MG TABLET PO SCH ×2 (07:59→22:03)
[2022-05-11] MEDS: Lactobacillus 1 EACH CAP.SPRINK PO SCH ×2 (07:59→22:03)
[2022-05-11] MEDS: Colchicine 0.6 MG TABLET PO SCH ×2 (07:59→22:03)
[2022-05-11] MEDS: Magnesium Oxide 400 MG TABLET PO SCH ×2 (07:59→22:03)
[2022-05-11] MEDS: Nystatin POWDER 30 GM BOTTLE TP SCH ×2 (08:00→22:03)
[2022-05-11] MEDS: Insulin LISPRO 300 UNITS/3 ML VIAL SUBQ SCH ×4 (08:00→22:09)
[2022-05-11] MEDS ORDERED: lisinopriL 10 MG TABLET PO SCH (09:00)
[2022-05-12] MEDS: *HR* Heparin 5,000 UNIT/ML VIAL SQ SCH ×2 (06:16→18:45)
[2022-05-12] MEDS: FLUoxetine 20 MG CAPSULE PO SCH (09:10)
[2022-05-12] MEDS: Magnesium Oxide 400 MG TABLET PO SCH ×2 (09:11→21:07)
[2022-05-12] MEDS: Thiamine (B-1) 100 MG TABLET PO SCH ×2 (09:11→21:07)
[2022-05-12] MEDS: Lactobacillus 1 EACH CAP.SPRINK PO SCH ×2 (09:11→21:07)
[2022-05-12] MEDS: lisinopriL 10 MG TABLET PO SCH (09:11)
[2022-05-12] MEDS: *HR* SitaGLIPtin 25 MG TABLET PO SCH (09:11)
[2022-05-12] MEDS: amLODIPine 5 MG TABLET PO SCH (09:11)
[2022-05-12] MEDS: Aspirin Enteric Coated 81 MG Tablet PO SCH (09:12)
[2022-05-12] MEDS: *HR* OxyCODONE/APAP 5/325 TABLET PO PRN ×2 (09:12→15:39)
[2022-05-12] MEDS: Gabapentin 300 MG CAPSULE PO SCH ×3 (09:12→21:07)
[2022-05-12] MEDS: Insulin DETEMIR 100 UNIT/ML X5UNITS SUBQ SCH ×2 (09:12→21:07)
[2022-05-12] MEDS: Insulin LISPRO 300 UNITS/3 ML VIAL SUBQ SCH ×4 (09:20→21:07)
[2022-05-12] MEDS: Nystatin POWDER 30 GM BOTTLE TP SCH ×2 (09:36→21:07)
[2022-05-12] MEDS: Acetaminophen 325 MG TABLET PO PRN (17:36)
[2022-05-13] MEDS: *HR* Heparin 5,000 UNIT/ML VIAL SQ SCH (05:23)
[2022-05-13] MEDS: Insulin LISPRO 300 UNITS/3 ML VIAL SUBQ SCH ×2 (09:49→12:31)
[2022-05-13] MEDS: *HR* SitaGLIPtin 25 MG TABLET PO SCH (09:49)
[2022-05-13] MEDS: Magnesium Oxide 400 MG TABLET PO SCH (09:50)
[2022-05-13] MEDS: FLUoxetine 20 MG CAPSULE PO SCH (09:50)
[2022-05-13] MEDS: Aspirin Enteric Coated 81 MG Tablet PO SCH (09:50)
[2022-05-13] MEDS: amLODIPine 5 MG TABLET PO SCH (09:50)
[2022-05-13] MEDS: lisinopriL 10 MG TABLET PO SCH (09:50)
[2022-05-13] MEDS: Gabapentin 300 MG CAPSULE PO SCH (09:50)
[2022-05-13] MEDS: Thiamine (B-1) 100 MG TABLET PO SCH (09:50)
[2022-05-13] MEDS: Insulin DETEMIR 100 UNIT/ML X5UNITS SUBQ SCH (09:51)
[2022-05-13] MEDS: Nystatin POWDER 30 GM BOTTLE TP SCH (09:51)
[2022-05-13] MEDS: Lactobacillus 1 EACH CAP.SPRINK PO SCH (09:51)
[2022-05-13 11:56] VITALS: BP 109/62; PULSE 76; TEMP 98.2; O2SAT 96
== END 2022-05-13 14:43 | disposition home health service (06) | DRG 871 ==
LOC: EMEROOARM 14:39 → 2ANU 14:39 → SUATTDRO 18:01 → 2ANU 20:17 → SUATTDRO 04-29 15:05 → 2ANU 05-02 15:29
PROVIDERS: ADMIT Internal Medicine; ATTEND Internal Medicine

== ENCOUNTER 2022-05-22 13:49 | Inpatient (IN) ==
[2022-05-22] MEDS ORDERED: 0.9 % Sodium Chloride 1,000 ML IVC ONE (14:28)
[2022-05-22] MEDS ORDERED: Iopamidol - 370 500 ML MLS IVP ONE (14:29)
[2022-05-22 14:48] LABS: Basophils # 0.1 K/mcL (0.0-0.2); Basophils % 0.4 %; Eosinophils % 0.1 %; Hematocrit 33.2 % (35.3-44.9); Hemoglobin 10.4 g/dL (11.5-15.4); Immature Granulocytes % 0.4 % (0-4); Lymphocytes # 3.4 K/mcL (0.6-4.6); Lymphocytes % 29.8 %; Mean Corpuscular HGB Conc 31.3 g/dL (31.6-35.5); Mean Corpuscular Hemoglobin 26.5 pg (28.0-33.3); Mean Corpuscular Volume 84.7 fL (83.0-100.0); Mean Platelet Volume 9.5 fL (9.4-12.4); Monocytes # 0.9 K/mcL (0.0-1.3); Monocytes % 7.8 %; Neutrophils # 7.1 K/mcL (1.6-8.9); Platelet Count 596 K/mcL (140-400); Red Blood Count 3.92 M/mcL (3.82-4.97); Segmented Neutrophils % 61.5 %; White Blood Count 11.5 K/mcL (4.3-11.1)
[2022-05-22 15:05] LABS: INR 1.3; Prothrombin Time 14.9 Seconds (9.4-12.1)
[2022-05-22 15:08] LABS: Activated Partial Thrombo Time 36.1 Seconds (26.0-36.0)
[2022-05-22 15:16] LABS: Alanine Aminotransferase 6 Units/L (7-52); Albumin 3.3 g/dL (3.5-5.7); Alkaline Phosphatase 79 Units/L (34-104); Aspartate Amino Transferase 9 Units/L (13-39); BUN/Creatinine Ratio 28 (6-26); Bilirubin,Direct 0.1 mg/dL (0.0-0.2); Bilirubin,Indirect 0.2 mg/dL (0.0-1.0); Bilirubin,Total 0.3 mg/dL (0.3-1.0); Blood Urea Nitrogen 21 mg/dL (8-23); Calcium 9.1 mg/dL (8.6-10.3); Carbon Dioxide 23 mEq/L (23-29); Chloride 103 mEq/L (98-107); Ethanol < 10 mg/dL (Less than 10); Globulin 3.4 g/dL (2.4-3.5); Glucose 191 mg/dL (70-105); Osmolality,Calculated 286 (280-300); Potassium 4.1 mEq/L (3.5-5.1); Sodium 134 mEq/L (136-145); Total Protein 6.7 g/dL (6.4-8.9); Troponin I < 0.03 ng/mL (< 0.04)
[2022-05-22 15:21] LABS: Thyroid Stimulating Hormone 2.019 mcIU/mL (0.340-5.600)
[2022-05-22 15:53] LABS: Bacteria,Urine Few per hpf (None-Few); Bilirubin,Urine Negative (Negative); Blood,Urine Small (Negative); Clarity,Urine Ex.Turbid (Clear); Color,Urine Yellow (Yellow); Glucose,Urine (UA) Normal (Normal); Ketones,Urine 10 mg/dL (Negative); Leukocyte Esterase,Urine Large (Negative); Mucus,Urine Few per lpf (None-Few); Nitrite,Urine Negative (Negative); PH,Urine 6.5 pH Units (5.0-8.0); Protein,Urine >=300 mg/dL (Neg-Trace); RBC,Urine 30-50 per hpf (0-3); Renal Epithelial Cells,Urine Moderate per hpf (None-Few); Urobilinogen,Urine Normal (Normal); WBC,Urine TNTC per hpf (0-3)
[2022-05-22 16:11] LABS: Amphetamine Screen,Urine Negative ng/mL (Cutoff=1000); Barbiturate Screen,Urine Negative ng/mL (Cutoff=200); Benzodiazepines Screen,Urine Negative ng/mL (Cutoff=200); Cannabinoid Screen,Urine Negative ng/mL (Cutoff = 50); Cocaine Screen,Urine Negative ng/mL (Cutoff= 300); Opiate Screen,Urine Negative ng/mL (Cutoff=300); Phencyclidine Screen,Urine Negative ng/mL (Cutoff=25)
[2022-05-22] MEDS ORDERED: Ertapenem 1,000 MG in 0.9 % Sodium Chloride Mini Bag 100 ML IVPB STA (16:19)
[2022-05-22 16:27] LABS: Influenza A PCR Negative (Negative); Influenza B PCR Negative (Negative); Resp. Syncytial Virus PCR Negative (Negative); SARS-CoV-2 by PCR (In House) Negative (Negative)
[2022-05-22] MEDS ORDERED: Naloxone 0.4 MG/ML INJ IVP PRN (18:16)
[2022-05-22] MEDS ORDERED: Ondansetron 4 MG/2 ML VIAL IVP PRN (18:16)
[2022-05-22] MEDS ORDERED: Morphine Sulfate 2 MG/ML SYRINGE IVP ONE (18:21)
[2022-05-22] MEDS ORDERED: Famotidine 20 MG TABLET PO PRN (18:26)
[2022-05-22] MEDS ORDERED: *HR* Dextrose 50 % in Water (Syg) 50 ML SYRINGE IVP PRN (18:28)
[2022-05-22] MEDS ORDERED: D5% in Water 1,000 ML IVC PRN (18:28)
[2022-05-22] MEDS ORDERED: Dextrose Gel 15 GM/37.5 ML TUBE PO PRN ×2 (18:28)
[2022-05-22] MEDS: 0.9 % Sodium Chloride 1,000 ML IVC SCH (20:00)
[2022-05-22] MEDS: rOPINIRole 1 MG TABLET PO SCH (20:00)
[2022-05-22] MEDS: Lactobacillus 1 EACH CAP.SPRINK PO SCH (20:00)
[2022-05-22] MEDS ORDERED: Insulin DETEMIR 100 UNIT/ML X5UNITS SUBQ SCH (21:00)
[2022-05-23 05:42] LABS: Basophils # 0.1 K/mcL (0.0-0.2); Basophils % 0.7 %; Eosinophils % 0.2 %; Hematocrit 29.9 % (35.3-44.9); Hemoglobin 9.3 g/dL (11.5-15.4); Immature Granulocytes % 0.4 % (0-4); Lymphocytes % 37.1 %; Mean Corpuscular HGB Conc 31.1 g/dL (31.6-35.5); Mean Corpuscular Hemoglobin 26.9 pg (28.0-33.3); Mean Corpuscular Volume 86.4 fL (83.0-100.0); Mean Platelet Volume 9.4 fL (9.4-12.4); Monocytes # 0.9 K/mcL (0.0-1.3); Monocytes % 8.3 %; Neutrophils # 5.7 K/mcL (1.6-8.9); Platelet Count 505 K/mcL (140-400); Red Blood Count 3.46 M/mcL (3.82-4.97); Red Cell Distribution Width 18.2 % (11.5-14.5); Segmented Neutrophils % 53.3 %; White Blood Count 10.8 K/mcL (4.3-11.1)
[2022-05-23 06:02] LABS: BUN/Creatinine Ratio 22 (6-26); Blood Urea Nitrogen 15 mg/dL (8-23); Calcium 8.3 mg/dL (8.6-10.3); Carbon Dioxide 23 mEq/L (23-29); Chloride 107 mEq/L (98-107); Glucose 91 mg/dL (70-105); Osmolality,Calculated 282 (280-300); Potassium 3.7 mEq/L (3.5-5.1); Sodium 136 mEq/L (136-145)
[2022-05-23] MEDS: Insulin LISPRO 300 UNITS/3 ML VIAL SUBQ SCH ×3 (07:24→16:55)
[2022-05-23] MEDS: FLUoxetine 20 MG CAPSULE PO SCH (08:05)
[2022-05-23] MEDS: BuPROPion XL (24 HR) 150 MG TABLET PO SCH (08:05)
[2022-05-23] MEDS: 0.9 % Sodium Chloride 1,000 ML IVC SCH (08:06)
[2022-05-23] MEDS: Aspirin Enteric Coated 81 MG Tablet PO SCH (08:06)
[2022-05-23] MEDS: amLODIPine 5 MG TABLET PO SCH (08:06)
[2022-05-23] MEDS: Lactobacillus 1 EACH CAP.SPRINK PO SCH ×2 (08:06→20:11)
[2022-05-23] MEDS: *HR* HYDROcodone/Acet 10/325 mg TABLET PO PRN (15:01)
[2022-05-23] MEDS: Ertapenem 1,000 MG in 0.9 % Sodium Chloride Mini Bag 100 ML IVPB SCH (15:02)
[2022-05-23] MEDS: Insulin DETEMIR 100 UNIT/ML X5UNITS SUBQ SCH (19:58)
[2022-05-23] MEDS: rOPINIRole 1 MG TABLET PO SCH (20:11)
[2022-05-24] MEDS: *HR* HYDROcodone/Acet 10/325 mg TABLET PO PRN ×2 (06:06→15:31)
[2022-05-24] MEDS: FLUoxetine 20 MG CAPSULE PO SCH (09:29)
[2022-05-24] MEDS: BuPROPion XL (24 HR) 150 MG TABLET PO SCH (09:30)
[2022-05-24] MEDS: amLODIPine 5 MG TABLET PO SCH (09:30)
[2022-05-24] MEDS: Lactobacillus 1 EACH CAP.SPRINK PO SCH ×2 (09:30→20:21)
[2022-05-24] MEDS: Aspirin Enteric Coated 81 MG Tablet PO SCH (09:30)
[2022-05-24] MEDS: Insulin LISPRO 300 UNITS/3 ML VIAL SUBQ SCH ×3 (09:30→17:03)
[2022-05-24] MEDS: Ertapenem 1,000 MG in 0.9 % Sodium Chloride Mini Bag 100 ML IVPB SCH (15:31)
[2022-05-24] MEDS: rOPINIRole 1 MG TABLET PO SCH (20:21)
[2022-05-24] MEDS: Insulin DETEMIR 100 UNIT/ML X5UNITS SUBQ SCH (20:26)
[2022-05-25] MEDS: Aspirin Enteric Coated 81 MG Tablet PO SCH (08:54)
[2022-05-25] MEDS: BuPROPion XL (24 HR) 150 MG TABLET PO SCH (08:54)
[2022-05-25] MEDS: Lactobacillus 1 EACH CAP.SPRINK PO SCH ×2 (08:54→20:47)
[2022-05-25] MEDS: FLUoxetine 20 MG CAPSULE PO SCH (08:54)
[2022-05-25] MEDS: Insulin LISPRO 300 UNITS/3 ML VIAL SUBQ SCH ×3 (08:55→17:49)
[2022-05-25] MEDS: amLODIPine 5 MG TABLET PO SCH (08:55)
[2022-05-25] MEDS: rOPINIRole 1 MG TABLET PO SCH (20:47)
[2022-05-25] MEDS: Insulin DETEMIR 100 UNIT/ML X5UNITS SUBQ SCH (20:47)
[2022-05-26] MEDS: Insulin LISPRO 300 UNITS/3 ML VIAL SUBQ SCH ×3 (08:21→16:20)
[2022-05-26] MEDS: FLUoxetine 20 MG CAPSULE PO SCH (08:22)
[2022-05-26] MEDS: BuPROPion XL (24 HR) 150 MG TABLET PO SCH (08:22)
[2022-05-26] MEDS: Lactobacillus 1 EACH CAP.SPRINK PO SCH ×2 (08:22→19:34)
[2022-05-26] MEDS: amLODIPine 5 MG TABLET PO SCH (08:22)
[2022-05-26] MEDS: Aspirin Enteric Coated 81 MG Tablet PO SCH (08:23)
[2022-05-26] MEDS: *HR* HYDROcodone/Acet 10/325 mg TABLET PO PRN (11:54)
[2022-05-26] MEDS: rOPINIRole 1 MG TABLET PO SCH (19:34)
[2022-05-26] MEDS: Insulin DETEMIR 100 UNIT/ML X5UNITS SUBQ SCH (20:36)
[2022-05-27] MEDS ORDERED: Ertapenem 1,000 MG in 0.9 % Sodium Chloride Mini Bag 100 ML IVPB ONE (09:39)
[2022-05-27] MEDS: Lactobacillus 1 EACH CAP.SPRINK PO SCH ×2 (09:49→20:56)
[2022-05-27] MEDS: amLODIPine 5 MG TABLET PO SCH (09:49)
[2022-05-27] MEDS: FLUoxetine 20 MG CAPSULE PO SCH (09:49)
[2022-05-27] MEDS: BuPROPion XL (24 HR) 150 MG TABLET PO SCH (09:49)
[2022-05-27] MEDS: Aspirin Enteric Coated 81 MG Tablet PO SCH (09:49)
[2022-05-27] MEDS: Insulin LISPRO 300 UNITS/3 ML VIAL SUBQ SCH ×3 (09:50→16:33)
[2022-05-27] MEDS: Insulin DETEMIR 100 UNIT/ML X5UNITS SUBQ SCH (20:48)
[2022-05-27] MEDS: rOPINIRole 1 MG TABLET PO SCH (20:56)
[2022-05-27] MEDS ORDERED: Ondansetron 4 MG/2 ML VIAL IM ONE (22:00)
[2022-05-28] MEDS: Insulin LISPRO 300 UNITS/3 ML VIAL SUBQ SCH ×3 (07:37→16:29)
[2022-05-28] MEDS: amLODIPine 5 MG TABLET PO SCH (08:20)
[2022-05-28] MEDS: FLUoxetine 20 MG CAPSULE PO SCH (08:21)
[2022-05-28] MEDS: Lactobacillus 1 EACH CAP.SPRINK PO SCH ×2 (08:21→21:46)
[2022-05-28] MEDS: BuPROPion XL (24 HR) 150 MG TABLET PO SCH (08:21)
[2022-05-28] MEDS: Aspirin Enteric Coated 81 MG Tablet PO SCH (08:21)
[2022-05-28 12:08] LABS: Bilirubin,Urine Negative (Negative); Blood,Urine Negative (Negative); Clarity,Urine Clear (Clear); Color,Urine Light-Yellow (Yellow); Glucose,Urine (UA) Normal (Normal); Ketones,Urine 10 mg/dL (Negative); Leukocyte Esterase,Urine Negative (Negative); Nitrite,Urine Negative (Negative); PH,Urine 6.5 pH Units (5.0-8.0); Protein,Urine Trace mg/dL (Neg-Trace); Specific Gravity,Urine 1.016 (1.010-1.025); Urobilinogen,Urine Normal (Normal)
[2022-05-28] MEDS: Insulin DETEMIR 100 UNIT/ML X5UNITS SUBQ SCH (21:41)
[2022-05-28] MEDS: rOPINIRole 1 MG TABLET PO SCH (21:46)
[2022-05-29] MEDS: BuPROPion XL (24 HR) 150 MG TABLET PO SCH (08:26)
[2022-05-29] MEDS: Aspirin Enteric Coated 81 MG Tablet PO SCH (08:26)
[2022-05-29] MEDS: FLUoxetine 20 MG CAPSULE PO SCH (08:26)
[2022-05-29] MEDS: Lactobacillus 1 EACH CAP.SPRINK PO SCH ×2 (08:26→21:20)
[2022-05-29] MEDS: amLODIPine 5 MG TABLET PO SCH (08:26)
[2022-05-29] MEDS: Insulin LISPRO 300 UNITS/3 ML VIAL SUBQ SCH ×3 (08:27→16:48)
[2022-05-29] MEDS: rOPINIRole 1 MG TABLET PO SCH (21:20)
[2022-05-29] MEDS: Insulin DETEMIR 100 UNIT/ML X5UNITS SUBQ SCH (21:20)
[2022-05-30] MEDS: Insulin LISPRO 300 UNITS/3 ML VIAL SUBQ SCH ×2 (07:30→15:48)
[2022-05-30] MEDS: FLUoxetine 20 MG CAPSULE PO SCH (07:42)
[2022-05-30] MEDS: Aspirin Enteric Coated 81 MG Tablet PO SCH (07:42)
[2022-05-30] MEDS: amLODIPine 5 MG TABLET PO SCH (07:42)
[2022-05-30] MEDS: BuPROPion XL (24 HR) 150 MG TABLET PO SCH (07:42)
[2022-05-30] MEDS: Lactobacillus 1 EACH CAP.SPRINK PO SCH (07:42)
[2022-05-30 12:04] LABS: Adenovirus Not Detected (Not Detect); Bordetella Pertussis Not Detected (Not Detect); Chlamydophila pneumoniae Not Detected (Not Detect); Coronavirus 229E Not Detected (Not Detect); Coronavirus HKU1 Not Detected (Not Detect); Coronavirus NL63 Not Detected (Not Detect); Coronavirus OC43 Not Detected (Not Detect); Human Metapneumovirus Not Detected (Not Detect); Human Rhinovirus/Enterovirus Not Detected (Not Detect); Influenza A Subtype 2009 H1 Not Detected (Not Detect); Influenza B Not Detected (Not Detect); Mycoplasma pneumoniae Not Detected (Not Detect); Parainfluenza Virus 1 Not Detected (Not Detect); Parainfluenza Virus 2 Not Detected (Not Detect); Parainfluenza Virus 3 Not Detected (Not Detect); Parainfluenza Virus 4 Not Detected (Not Detect); Respiratory Syncytial Virus Not Detected (Not Detect); SARS-CoV-2 Not Detected (Not Detect)
[2022-05-30 15:10] VITALS: BP 119/66; PULSE 82; TEMP 97.9; O2SAT 95
== END 2022-05-30 17:23 | DRG 689 ==
LOC: 3BNU 13:49 → EMEROOARM 13:49 → SUATTDRO 18:06 → 3BNU 19:01
PROVIDERS: ADMIT Internal Medicine; ATTEND Internal Medicine